=== PATIENT | female | born 1955 | race Caucasian/White ===

== ENCOUNTER → 2021-08-23 | Outpatient (CLI) | payer OTHER, SELFPAY ==
--- NOTE | 2021-08-23 10:20 | BI_ITS ---
MAMMOGRAPHY - BILATERAL SCREENING REASON FOR EXAM: Female, 65 years old. Routine annual screening examination. PERTINENT HISTORY: Non-contributory. TECHNIQUE: Digital bilateral breast laron (3D mammographic acquisition) in the CC and MLO projections. 2-D mediolateral oblique (MLO) and craniocaudad (CC) views of both breasts were obtained. CAD: Full Field Digital Mammography with Computer Added Detection was performed. COMPARISON: Comparison is made with prior study dated 12/09/2014 and 04/15/2013. FINDINGS: Breast Composition: There are scattered areas of fibroglandular density. There are no dominant masses or suspicious calcifications. Stable 4.5 mm well-defined nodule in the axillary region of the left breast suggestive of a small lymph node. No other significant abnormalities are identified. There has been no significant change since the prior study. BI/SCRN MAMM (CAD)W/LARON BILAT IMPRESSION: Stable bilateral screening mammogram. Yearly follow-up mammogram recommended. (A) ASSESSMENT CATEGORY: BIRADS Category 2: Benign. A letter regarding these results will be sent to the patient by the facility within 30 days. Approximately 10% of breast cancers are not detected by mammography. A normal mammogram should not delay biopsy of a clinically suspicious abnormality. [id number] Electronically Signed: Paulino Chamberlain MD at 11:58 EDT ,
--- NOTE | 2021-08-23 10:22 | BD_ITS ---
STUDY: DUAL ENERGY X-RAY ABSORPTIOMETRY / DXA REASON FOR EXAM: Female, 65 years old. M85.89 TECHNIQUE: Bone Mineral Density (BMD) measurements of lumbar spine and right hip were obtained. COMPARISON: Comparison is made with prior study of 05/05/2014. FINDINGS: Lumbar Spine (L1-L4): g/cm2 (0.773) / T-score (-2.5) / Z-score (-0.8) Findings are suggestive of osteopenia with a high fracture risk. Right Femur Total: g/cm2 (0.795) / T-score (-1.2) / Z-score (-0.1) Right Femoral Neck: g/cm2 (0.648) / T-score (-1.8) / Z-score (-0.4) The T-Scores on the most recent prior examination were: Lumbar Spine (L1-L4): There has been worsening of bone density since the previous examination. Right Femur Total: which represents a worsening of 4.3%. BD/Dexa Bone Density Study IMPRESSION: The patient is considered osteopenic as outlined below according to World Lance Organization (WHO) criteria with a high fracture risk. There has been worsening of bone density since the previous examination. Reference Information: The T-score is the number of standard deviations above or below the standard which is normal for young adults at their peak bone mineral density. The World Health Organization (WHO) interprets the T-scores as follows: Above -1 Normal bone density Between -1 and -2.5 Osteopenia Equal to / or below -2.5 Osteoporosis As a practical clinical guideline, osteopenia may be graded as follows: Mild -1 through -1.5 Moderate -1.6 through -2.0 Severe -2.1 through -2.4 The Z-score is the number of standard deviations above or below age-matched controls. A Z-score of less than -1.5 would be considered abnormal. References: 1. NIH Osteoporosis and Related Bone Diseases www osteo.org 2. International Society for Clinical Densitometry www iscd.org 3. National Osteoporosis Foundation www nof.org Electronically Signed: Paulino Chamberlain MD at 15:34 EDT ,
== END | disposition home or self-care (01) ==
LOC: OPBD 10:16
PROVIDERS: PCP Internal Medicine; Visit Provider Family Medicine
DX: Z12.31 Encounter for screening mammogram for malignant neoplasm of breast (principal); M85.89 Other specified disorders of bone density and structure, multiple sites
CPT/HCPCS: 77063; 77067; 77080

== ENCOUNTER → 2024-08-18 | Outpatient (CLI) | payer MEDICARE, SELFPAY ==
--- NOTE | 2024-08-18 06:58 | BD_ITS ---
PROCEDURE: DEXA BONE DENSITY STUDY 08/18/2024 REASON FOR EXAM: F, age 68 y/o . Postmenopausal. TECHNIQUE: DEXA BONE DENSITY STUDY COMPARISON: Prior study dated August 23, 2021. FINDINGS: BMD and T-SCORES Lumbar spine: 0.676 g/cm2, T-score -3.4 Levels: L1 through L4 Loss of 12.5% Left femoral neck: 0.617 g/cm2, T-score -2.1 Femoral neck comparison data not recommended for monitoring change. Left total hip: 0.687 g/cm2, T-score -2.1 Change from prior: Loss of 8.1%. Right femoral neck: 0.636 g/cm2, T-score -1.9 Femoral neck comparison data not recommended for monitoring change. Right total hip: 0.727 g/cm2, T-score -1.8 Change from prior: Loss of 8.5%. The World Health Organization has defined the following categories based on bone density: Normal bone density: T-score equal to or greater than -1.0 Osteopenia: T-score between -1.0 and -2.5 Osteoporosis: T-score equal to or less than -2.5 The patient does meet the pharmacological treatment recommendations for prevention of osteoporosis. BD/Dexa Bone Density Study IMPRESSION: OSTEOPOROSIS. Recommend follow-up as clinically warranted. Reading Location: [id number]
--- OUTSIDE RECORDS SUMMARY | 2024-08-18 07:08 | XMS RPT_ITS | CCD ---
Author Organization [facility] Inform ion Partnership [facility] Care Team Providers Care Archery Instructor Name Role Phone SEEMA ZHENG Unavailable Unavailable SEEMA ZHENG Unavailable Unavailable JOSIAH DONOVAN Unavailable Unavailable Unavailable Primary Care Provider Kelly grace Unavailable Primary Care Provider Kelly Donovan MD, Josiah Short Primary Care Provider JOSIAH DONOVAN Primary Care Unavaila ble MARTIJENNIFER Powell Referring Unavailable ZION, JOSIAH SHORT Primary Care Unavaila ble MARTIJENNIFER Referring Unavailable IZON, JOSIAH HAN Primary Care Unavaila ble ZION, JOSIAH HAN Primary Care Unavaila ble ZION, [facility] Primary Care Unavaila ble MARTIJENNIFER Referring Unavailable ZION, [facility] HAN Primary Care Unavaila ble ZION, [facility] HAN Primary Care Unavaila ble TEGAN DELVALLE Admitting Unavailable ADELIARILEY H Attending Unavailable RENALDO PENNINGTON Consulting Unavailable JENNIFER KIDD Referring Unavailable ZION, JOSIAH HAN Primary Care Unavaila ble ALISAYENNIFER Referring Unavailable ZION, [facility] HAN Primary Care Unavaila ble ZION, [facility] Primary Care Unavaila ble KILBANE, E1 Referring Unavailable KILBANE, E1 Attending Unavailable KILBANE, E1 Primary Care Unavailable Medications Current Medications Medication Drug Class(es) Dates Sig (Normalized) Sig (Original) apixaban 5 mg oral tablet (2 sources) Factor Xa Inhibitor Start: 10-26-2023 End: 11-25-2023 take 1 tablet by mouth twice daily apixaban (ELIQUIS) 5 mg tab(s) Take 1 tablet by mouth two times a day. 60 tablet 10/26/2023 11/25/2023 Active Calcium (4 sources) Phosphate Binder, Calcium CALCIUM ORAL Take by mouth twice daily. Active cholecalciferol, vitamin D3, (VITAMIN D3 ORAL) (4 sources) cholecalciferol, vitamin D3, (VITAMIN D3 ORAL) Take by mouth twice daily. Active 24 hr dilTIAZem hydrochloride 120 mg extended release oral capsule (4 sources) Calcium Channel Ritu Start: 10-27-2023 End: 11-26-2023 take 1 capsule by mouth once daily dilTIAZem CD (CARDIZEM CD, CARTIA XT) 120 mg 24 hr capsule Take 1 capsule by mouth once daily. 30 capsule 10/27/2023 Active empagliflozin 10 mg oral tablet (4 sources) Sodium-Glucose Cotransporter 2 Inhibitor Start: 10-27-2023 End: 11-26-2023 take 1 tablet by mouth once daily empagliflozin (JARDIANCE) 10 mg tablet Take 1 tablet by mouth once daily. 30 tablet 10/27/2023 Active furosemide 20 mg oral tablet (4 sources) Loop Diuretic Start: 10-26-2023 End: 11-25-2023 take 0.5 tablet by mouth once daily furosemide (LASIX) 20 mg tablet Take 0.5 tablets by mouth once daily. 15 tablet 10/26/2023 Active magnesium oxide 400 mg oral capsule (4 sources) take 1 capsule by mouth once daily magnesium oxide 400 mg magnesium cap Take 400 mg by mouth once daily. Active 24 hr metoprolol succinate 100 mg extended release oral tablet (4 sources) beta-Adrenergic Ritu Start: 10-27-2023 End: 11-26-2023 take 1 tablet by mouth once daily metoprolol succinate ER (TOPROL XL) 100 mg Take 1 tablet by mouth once daily. 30 tablet 10/27/2023 Active vitamin b12 1 mg/ml injectable solution (4 sources) Vitamin B12 Start: 03-21-2020 cyanocobalamin 1,000 mcg/mL once every month. 03/21/2020 Active Completed/Discontinued Medications Medication Drug Class(es) Dates Sig (Normalized) Sig (Original) benzocaine 140 mg/ml / butamben 20 mg/ml / tetracaine 20 mg/ml mucosal spray (1 source) [place] Local Anesthetic, Standardized Chemical Allergen Start: 11-14-2023 End: 11-14-2023 1 [place], MUCOUS MEMBRANE (TOPICAL MOUTH & THROAT), ONCE, 1 dose, On Fri11/14/23 at 1230, FOR EXTERNAL USE ONLY APPLY TO: back of throat [place] should be applied for one second or less - Dose delivered is 200 mg per one second spray - Pharmaceutical Waste: Aerosol - naproxen 500 mg oral tablet (1 source) Nonsteroidal Anti-inflammatory Drug Start: 01-29-2010 take 1 tablet by mouth once daily at mealtime for pain naproxen (NAPROSYN) 500 mg ORAL tablet Indications: Leg pain, left , Knee pain, left Take one(1) tab two(2) times daily with food for pain. 20 Tab 0 01/29/2010 Active Comment on above: Take one(1) tab two( 2) times daily with food for pain. Problems Active Problems Problem Classification Problem Date Documented Da te Episodic/Chronic Cardiac dysrhythmias (13 sources) Atrial fibrillation; Translations: [Unspecified atrial fibrillation] Onset: 10-23-2023 11-14-2023 Chronic Congestive heart failure; nonhypertensive (4 sources) Heart failure with normal ejection fraction; Translations: [Unspecified diastolic (congestive) heart failure] Onset: 10-23-2023 03-02-2024 Chronic Diabetes mellitus without complication (7 sources) Hyperglycemia; Translations: [Hyperglycemia, unspecified] Onset: 10-23-2023 10-23-2023 Episodic Osteoporosis (1 source) Age-related osteoporosis without current pathological fracture; Translations: [Age-related osteoporosis without current pathological fracture] Onset: 08-12-2024 Chronic Pathological fracture (1 source) Age-related osteoporosis with current pathological fracture, vertebra(e), sequela; Translations: [Crush fracture of vertebra due to osteoporosis, sequela] Onset: 08-03-2024 Episodic Spondylosis; intervertebral disc disorders; other back problems (1 source) Sciatica, unspecified side; Translations: [Sciatica, unspecified side] Onset: 07-22-2024 Episodic Unclassified (1 source) Vertebrogenic low back pain; Translations: [Vertebrogenic low back pain] Onset: 07-22-2024 Past or Other Problems Problem Classification Problem Date Documented Da te Episodic/Chronic Administrative/social admission (4 sources) Person with feared health complaint in whom no diagnosis is made; Translations: [Person with feared complaint in whom no diagnosis was made] Onset: 03-01-2020 03-01-2020 Episodic Cardiac dysrhythmias (1 source) Tachycardia, unspecified; Translations: [Tachycardia] Onset: 10-23-2023 Episodic Malaise and fatigue (4 sources) Asthenia; Translations: [Weakness] Onset: 03-01-2020 03-01-2020 Episodic Other connective tissue disease (4 sources) Nocturnal muscle cramp; Translations: [Cramp and spasm] Onset: 03-01-2020 05-07-2020 Episodic Other connective tissue disease (4 sources) Muscle pain; Translations: [Myalgia, unspecified site] Onset: 03-01-2020 03-01-2020 Episodic Other connective tissue disease (4 sources) Pain in bilateral legs; Translations: [Pain in right leg] Onset: 05-07-2020 05-07-2020 Episodic Other connective tissue disease (4 sources) Spasm; Translations: [Cramp and spasm] Onset: 05-07-2020 05-07-2020 Episodic Other lower respiratory disease (4 sources) Dyspnea; Translations: [Shortness of breath] Onset: 10-23-2023 Resolved: 10-26-2023 10-26-2023 Episodic Other nervous system disorders (4 sources) Muscle twitch; Translations: [Fasciculation] Onset: 03-01-2020 03-01-2020 Episodic Other nervous system disorders (4 sources) Skin sensation disturbance; Translations: [Unspecified disturbances of skin sensation] Onset: 05-07-2020 05-07-2020 Episodic Other screening for suspected conditions (not mental disorders or infectious disease) (8 sources) D-dimer above reference range; Translations: [Other specified abnormal findings of blood chemistry] Onset: 10-23-2023 Resolved: 10-26-2023 10-26-2023 Episodic Results Test Name Value Interpretation Reference Range Facility PT panel Coag (PPP)on 2024 INR Coag (PPP) [Relative time] 1.3 {INR} Normal 0.9-1.3 [facility] Comment on above: Order Comment: Speci men Type: BLOOD SPECIMENOrdering Facility: [employer]. [facility] Address: [address] [place] [address] Result Comment: Danii min K Antagonist (VKA) Therapeutic Range: INR 2 to 3 (Target INR of 2.5) Note: For patients treated with VKA drugs, such as warfarin, the [employer] 2012 Guideline recommends a therapeutic INR range of 2 to 3 (target INR of 2.5). This recommendation includes high-risk patients with antiphospholipid syndrome with previous arterial or venous thromboembolism, current-generation mechanical or bioprosthetic aortic heart valve replacement. Note: Patients with mechanical aortic valve replacement and additional risk factors for thromboembolic events (atrial fibrillation, previous thromboembolism, LV dysfunction, hypercoagulable conditions) or an older generation mechanical AVR (i.e., ball in-Cage) or any mechanical MVR should have a INR therapeutic range of 2.5 to 3.5 (target INR of 3). Toni LAUGHLIN, et al. Chest 2012, 141:7S-47S Sebastián RA, et al. [facility] 2017, 70: 252-289 Performed By: #### 3 4528-0, 54367-8 ####[facility] [id number] [place] [address] [place] PT Coag (PPP) [Time] 13.9 s High 9.4-12.5 [facility] Comment on above: Order Comment: Speci men Type: BLOOD SPECIMENOrdering Facility: [employer]. [facility] Address: [address] [place] [address] Performed By: #### 3 4528-0, 85041-5 ####[facility] [id number] [place] [address] [place] STAPHYLOCOCCUS AUREUS AND MR SA SCREEN, PCR, NASALon 08-03-2024 S. aureus and MRSA panel KOURTNEY+probe (Nose) Not detected Normal Not Detected [facility] Comment on above: Order Comment: Speci men Type: SWABOrdering Facility: [employer]. [facility] Address: [address] [place] [address] Performed By: #### S APCR ####[facility] [id number] [place] [address] [place] aPTT PPPon 08-03-2024 aPTT Coag (PPP) [Time] 38.0 s High 25.1-36.5 [facility] Comment on above: Order Comment: Speci men Type: BLOOD SPECIMENOrdering Facility: [facility] [facility]. [facility] Address: [address] [place] [address] Result Comment: [facility] Heparin Therapeutic Range: 54-90 seconds Performed By: #### 3 4528-0, 96429-4 ####[facility] LABCLIA [id number] [address] [place] XR LUMBAR 2V AP/LATon 2024 XR LUMBAR 2V AP/LAT * * *Final Report* * * DATE OF EXAM: Jul 22 2024 1:22PM UDX [id number] - XR LUMBAR 2V AP/LAT / PROCEDURE REASON: MULTIPLE DIAGNOSIS * * * * Physician Interpretation * * * * EXAMINATION: XR LUMBAR 2V AP/LAT, XR THORACIC 2V AP/LAT CLINICAL HISTORY: Pain. Technique: XR LUMBAR 2V AP/LAT, XR THORACIC 2V AP/LAT Comparison: CT chest 10/23/2023. RESULT: Age-indeterminate compression fracture deformity of the T10 vertebra which is new compared to prior exam. This results in approximately 25% height loss at this level. There is mild grade 1 anterolisthesis of L4 upon L5. Vertebral body height and alignment is otherwise within normal limits. There is mulitilevel disk space narrowing and facet joint hypertrophy most prominent at T7-T8 within the thoracic spine, mild to moderate in degree; L5-S1 within the lumbar spine, mild in degree. There are no acute osseous changes. IMPRESSION: Age-indeterminate compression fracture of the T10 vertebra which is new compared to prior imaging. This results in 25% height loss at this level without osseous retropulsion. Clinical correlation is advised to further determine the acuity of this injury. Multilevel degenerative changes as above. Circular Gang Saw Operator: PSCB Transcribe Date/Time: Jul 26 2024 12:09P Dictated by : BEN VARGAS MD This examination was interpreted and the report reviewed and electronically signed by: BEN VARGAS MD on Jul 26 2024 12:19PM EST [id number] N Normal [facility] XR THORACIC 2V AP/LATon 06-25 XR THORACIC 2V AP/LAT * * *Final Report* * * DATE OF EXAM: Jul 22 2024 1:22PM UDX 5262 - XR THORACIC 2V AP/LAT / PROCEDURE REASON: MULTIPLE DIAGNOSIS * * * * Physician Interpretation * * * * EXAMINATION: XR LUMBAR 2V AP/LAT, XR THORACIC 2V AP/LAT CLINICAL HISTORY: Pain. Technique: XR LUMBAR 2V AP/LAT, XR THORACIC 2V AP/LAT Comparison: CT chest 10/23/2023. RESULT: Age-indeterminate compression fracture deformity of the T10 vertebra which is new compared to prior exam. This results in approximately 25% height loss at this level. There is mild grade 1 anterolisthesis of L4 upon L5. Vertebral body height and alignment is otherwise within normal limits. There is mulitilevel disk space narrowing and facet joint hypertrophy most prominent at T7-T8 within the thoracic spine, mild to moderate in degree; L5-S1 within the lumbar spine, mild in degree. There are no acute osseous changes. IMPRESSION: Age-indeterminate compression fracture of the T10 vertebra which is new compared to prior imaging. This results in 25% height loss at this level without osseous retropulsion. Clinical correlation is advised to further determine the acuity of this injury. Multilevel degenerative changes as above. Circular Gang Saw Operator: PSCB Transcribe Date/Time: Jul 26 2024 12:09P Dictated by : BEN VARGAS MD This examination was interpreted and the report reviewed and electronically signed by: BEN VARGAS MD on Jul 26 2024 12:19PM EST [id number] N Normal [facility] Basic metabolic 2000 panelon 07-09-2024 Anion gap [Moles/Vol] 10 mmol/L Normal 8-15 [facility] Comment on above: Order Comment: Speci men Type: BLOOD SPECIMENOrdering Facility: External Submitter Address: , , Performed By: #### 2 4321-2 ####[facility] LABCLIA [id number] [place] [address] [place] Calcium [Mass/Vol] 9.6 mg/dL Normal 8.5-10.2 [facility] Comment on above: Order Comment: Speci men Type: BLOOD SPECIMENOrdering Facility: External Submitter Address: , , Performed By: #### 2 4321-2 ####[facility] LABCLIA [id number] [place] [address] [place] Chloride [Moles/Vol] 101 mmol/L Normal 98-107 [facility] Comment on above: Order Comment: Speci men Type: BLOOD SPECIMENOrdering Facility: External Submitter Address: , , Performed By: #### 2 4321-2 ####[facility] LABIA [id number] [place] [address] [place] CO2 [Moles/Vol] 27 mmol/L Normal 22-30 [facility] Comment on above: Order Comment: Speci men Type: BLOOD SPECIMENOrdering Facility: External Submitter Address: , , Performed By: #### 2 4321-2 ####[facility] [id number] [place] [address] [place] Creatinine [Mass/Vol] 0.72 mg/dL Normal 0.58-0.96 [facility] Comment on above: Order Comment: Speci men Type: BLOOD SPECIMENOrdering Facility: External Submitter Address: , , Performed By: #### 2 4321-2 ####[facility] [id number] [place] [address] [place] [facility] Creatinine and Glomerular filtration rate.predicted panel (S/P/Bld) 92 mL/min/1.73m??? Normal >=60 [facility] Comment on above: Order Comment: Speci men Type: BLOOD SPECIMENOrdering Facility: External Submitter Address: , , Result Comment: Shira mated Glomerular Filtration Rate (eGFR) is calculated using the 2020 CKD-EPI creatinine equation. This equation utilizes serum creatinine, sex, and age as parameters. The creatinine assay has traceable calibration to isotope dilution-mass spectrometry. Refer to KDIGO guidelines for clinical interpretation. In patients with unstable renal function, e.g. those with acute kidney injury, the eGFR may not accurately reflect actual GFR. Performed By: #### 2 4321-2 ####[facility] LABIA [id number] [place] [address] [place] Glucose [Mass/Vol] 84 mg/dL Normal 74-99 [facility] Comment on above: Order Comment: Allan phelps Type: BLOOD SPECIMENOrdering Facility: External Submitter Address: , , Result Comment: The [place] [employer] (ADA) provides guidance for cutoff values for fasting glucose and random glucose. The ADA defines fasting as no caloric intake for at least 8 hours. Fasting plasma glucose results between 100 to 125 mg/dL indicate increased risk for diabetes (prediabetes). Fasting plasma glucose results greater than or equal to 126 mg/dL meet the criteria for diagnosis of diabetes. In the absence of unequivocal hyperglycemia, results should be confirmed by repeat testing. In a patient with classic symptoms of hyperglycemia or hyperglycemic crisis, random plasma glucose results greater than or equal to 200 mg/dL meet the criteria for diagnosis of diabetes. Reference: Standards of Medical Care in Diabetes 2016, [place] [employer]. Diabetes Care. 2016.39(Suppl 1). Performed By: #### 2 4321-2 ####[facility] [id number] [address] STATES OF [facility] Potassium [Moles/Vol] 4.4 mmol/L Normal 3.7-5.1 [facility] Comment on above: Order Comment: Allan phelps Type: BLOOD SPECIMENOrdering Facility: External Submitter Address: , , Performed By: #### 2 432-2 ####[facility] [id number] [address] Sodium [Moles/Vol] 138 mmol/L Normal 136-144 [facility] Comment on above: Order Comment: Allan [facility] Type: BLOOD SPECIMENOrdering Facility: External Submitter Address: , , Performed By: #### 2 4321-2 ####[facility] [id number] [address] STATES [facility] Urea nitrogen [Mass/Vol] 19 mg/dL Normal 7-21 [facility] Comment on above: Order Comment: Allan phelps Type: BLOOD SPECIMENOrdering Facility: External Submitter Address: , , Performed By: #### 2 4321-2 ####[facility] [id number] [address] OF [facility] CBC panel Auto (Bld)on 07-09 Erythrocyte distribution width (RBC) [Ratio] 12.7 % Normal 11.5-15.0 [facility] Comment on above: Order Comment: Speci men Type: BLOOD SPECIMENOrdering Facility: External Submitter Address: , , Performed By: #### 5 8410-2 ####[facility] [id number] [address] Hematocrit (Bld) [Volume fraction] 39.9 % Normal 36.0-46.0 [facility] Comment on above: Order Comment: Speci men Type: BLOOD SPECIMENOrdering Facility: External Submitter Address: , , Performed By: #### 5 8410-2 ####[facility] [id number] [address] Hemoglobin (Bld) [Mass/Vol] 13.0 g/dL Normal 11.5-15.5 [facility] Comment on above: Order Comment: Speci men Type: BLOOD SPECIMENOrdering Facility: External Submitter Address: , , Performed By: #### 5 8410-2 ####[facility] [id number] [address] MCH (RBC) [Entitic mass] 32.7 pg Normal 26.0-34.0 [facility] Comment on above: Order Comment: Speci men Type: BLOOD SPECIMENOrdering Facility: External Submitter Address: , , Performed By: #### 5 8410-2 ####[facility] [id number] [address] MCHC (RBC) [Mass/Vol] 32.6 g/dL Normal 30.5-36.0 [facility] Comment on above: Order Comment: Speci men Type: BLOOD SPECIMENOrdering Facility: External Submitter Address: , , Performed By: #### 5 8410-2 ####[facility] [id number] [address] MCV (RBC) [Entitic vol] 100.5 fL High 80.0-100.0 [facility] Comment on above: Order Comment: Speci men Type: BLOOD SPECIMENOrdering Facility: External Submitter Address: , , Performed By: #### 5 8410-2 ####[facility] [id number] [address] Nucleated RBC (Bld) [#/Vol] 10*3/uL Normal <0.01 [facility] Comment on above: Order Comment: Speci men Type: BLOOD SPECIMENOrdering Facility: External Submitter Address: , , Performed By: #### 5 8410-2 ####[facility] [id number] [address] Platelet mean volume (Bld) [Entitic vol] 9.3 fL Normal 9.0-12.7 [facility] Comment on above: Order Comment: Speci men Type: BLOOD SPECIMENOrdering Facility: External Submitter Address: , , Performed By: #### 5 8410-2 ####[facility] [id number] [address] Platelets (Bld) [#/Vol] 300 10*3/uL Normal 150-400 [facility] Comment on above: Order Comment: Speci men Type: BLOOD SPECIMENOrdering Facility: External Submitter Address: , , Performed By: #### 5 8410-2 ####[facility] [id number] [address] RBC (Bld) [#/Vol] 3.97 10*6/uL Normal 3.90-5.20 [facility] Comment on above: Order Comment: Speci men Type: BLOOD SPECIMENOrdering Facility: External Submitter Address: , , Performed By: #### 5 8410-2 ####[facility] [id number] [address] WBC (Bld) [#/Vol] 5.20 10*3/uL Normal 3.70-11.00 [facility] Comment on above: Order Comment: Speci men Type: BLOOD SPECIMENOrdering Facility: External Submitter Address: , , Performed By: #### 5 8410-2 ####[facility] [id number] [place] [address] [place] Basic metabolic 2000 panelon 03-19-2024 Anion gap [Moles/Vol] 9 mmol/L Normal 8-15 [facility] Comment on above: Order Comment: Speci men Type: BLOOD SPECIMENOrdering Facility: External Submitter Address: , , Performed By: #### 3 3762-6, ####[facility] [id number] [place] [address] [place] Calcium [Mass/Vol] 10.0 mg/dL Normal 8.5-10.2 [facility] Comment on above: Order Comment: Speci men Type: BLOOD SPECIMENOrdering Facility: External Submitter Address: , , Performed By: #### 3 3762-6, ####[facility] [id number] [address] [place] Chloride [Moles/Vol] 105 mmol/L Normal 98-107 [facility] Comment on above: Order Comment: Speci men Type: BLOOD SPECIMENOrdering Facility: External Submitter Address: , , Performed By: #### 3 3762-6, ####[facility] [id number] [place] [address] [place] CO2 [Moles/Vol] 29 mmol/L Normal 22-30 [facility] Comment on above: Order Comment: Speci men Type: BLOOD SPECIMENOrdering Facility: External Submitter Address: , , Performed By: #### 3 3762-6, ####[facility] [id number] [place] [address] [place] Creatinine [Mass/Vol] 0.67 mg/dL Normal 0.58-0.96 [facility] Comment on above: Order Comment: Speci men Type: BLOOD SPECIMENOrdering Facility: External Submitter Address: , , Performed By: #### 3 3762-6, 46271-1 ####[facility] [id number] [place] [address] [place] Creatinine and Glomerular filtration rate.predicted panel (S/P/Bld) 97 mL/min/1.73m??? Normal >=60 [facility] Comment on above: Order Comment: Allan phelps Type: BLOOD SPECIMENOrdering Facility: External Submitter Address: , , Result Comment: Shira mated Glomerular Filtration Rate (eGFR) is calculated using the 2020 CKD-EPI creatinine equation. This equation utilizes serum creatinine, sex, and age as parameters. The creatinine assay has traceable calibration to isotope dilution-mass spectrometry. Refer to KDIGO guidelines for clinical interpretation. In patients with unstable renal function, e.g. those with acute kidney injury, the eGFR may not accurately reflect actual GFR. Performed By: #### 3 3762-6, 29393-1 ####[facility] LABIA [id number] [place] [address] [place] Glucose [Mass/Vol] 88 mg/dL Normal 74-99 [facility] Comment on above: Order Comment: Allan phelps Type: BLOOD SPECIMENOrdering Facility: External Submitter Address: , , Result Comment: The [place] [employer] (ADA) provides guidance for cutoff values for fasting glucose and random glucose. The ADA defines fasting as no caloric intake for at least 8 hours. Fasting plasma glucose results between 100 to 125 mg/dL indicate increased risk for diabetes (prediabetes). Fasting plasma glucose results greater than or equal to 126 mg/dL meet the criteria for diagnosis of diabetes. In the absence of unequivocal hyperglycemia, results should be confirmed by repeat testing. In a patient with classic symptoms of hyperglycemia or hyperglycemic crisis, random plasma glucose results greater than or equal to 200 mg/dL meet the criteria for diagnosis of diabetes. Reference: Standards of Medical Care in Diabetes 2016, [place] [employer]. Diabetes Care. 2016.39(Suppl 1). Performed By: #### 3 3762-6, 49676-8 ####[facility] LABIA [id number] [place] [address] [place] Potassium [Moles/Vol] 4.3 mmol/L Normal 3.7-5.1 [facility] Comment on above: Order Comment: Allan phelps Type: BLOOD SPECIMENOrdering Facility: External Submitter Address: , , Performed By: #### 3 3762-6, ####[facility] LABIA [id number] [address] Sodium [Moles/Vol] 143 mmol/L Normal 136-144 [facility] Comment on above: Order Comment: Speci men Type: BLOOD SPECIMENOrdering Facility: External Submitter Address: , , Performed By: #### 3 3762-6, ####[facility] [id number] [address] Urea nitrogen [Mass/Vol] 20 mg/dL Normal 7-21 [facility] Comment on above: Order Comment: Speci men Type: BLOOD SPECIMENOrdering Facility: External Submitter Address: , , Performed By: #### 3 3762-6, ####[facility] [id number] [address] CBC panel Auto (Bld)on 03-19 Erythrocyte distribution width (RBC) [Ratio] 13.1 % Normal 11.5-15.0 [facility] Comment on above: Order Comment: Speci men Type: BLOOD SPECIMENOrdering Facility: External Submitter Address: , , Performed By: #### 5 8410-2 ####[facility] [id number] [address] Hematocrit (Bld) [Volume fraction] 47.0 % High 36.0-46.0 [facility] Comment on above: Order Comment: Speci men Type: BLOOD SPECIMENOrdering Facility: External Submitter Address: , , Performed By: #### 5 8410-2 ####[facility] LABIA [id number] [address] Hemoglobin (Bld) [Mass/Vol] 14.9 g/dL Normal 11.5-15.5 [facility] Comment on above: Order Comment: Speci men Type: BLOOD SPECIMENOrdering Facility: External Submitter Address: , , Performed By: #### 5 8410-2 ####[facility] [id number] [place] [address] [facility] MCH (RBC) [Entitic mass] 32.0 pg Normal 26.0-34.0 [facility] Comment on above: Order Comment: Speci men Type: BLOOD SPECIMENOrdering Facility: External Submitter Address: , , Performed By: #### 5 8410-2 ####[facility] [id number] [address] MCHC (RBC) [Mass/Vol] 31.7 g/dL Normal 30.5-36.0 [facility] Comment on above: Order Comment: Speci men Type: BLOOD SPECIMENOrdering Facility: External Submitter Address: , , Performed By: #### 5 8410-2 ####[facility] [id number] [address] MCV (RBC) [Entitic vol] 100.9 fL High 80.0-100.0 [facility] Comment on above: Order Comment: Speci men Type: BLOOD SPECIMENOrdering Facility: External Submitter Address: , , Performed By: #### 5 8410-2 ####[facility] [id number] [address] Nucleated RBC (Bld) [#/Vol] 10*3/uL Normal <0.01 [facility] Comment on above: Order Comment: Speci men Type: BLOOD SPECIMENOrdering Facility: External Submitter Address: , , Performed By: #### 5 8410-2 ####[facility] [id number] [address] Platelet mean volume (Bld) [Entitic vol] 9.3 fL Normal 9.0-12.7 [facility] Comment on above: Order Comment: Speci men Type: BLOOD SPECIMENOrdering Facility: External Submitter Address: , , Performed By: #### 5 8410-2 ####[facility] [id number] [address] Platelets (Bld) [#/Vol] 315 10*3/uL Normal 150-400 [facility] Comment on above: Order Comment: Speci mattie Type: BLOOD SPECIMENOrdering Facility: External Submitter Address: , , Performed By: #### 5 8410-2 ####[facility] LABIA [id number] [place], [place] [address] [place] [address] RBC (Bld) [#/Vol] 4.66 10*6/uL Normal 3.90-5.20 [facility] Comment on above: Order Comment: Speci men Type: BLOOD SPECIMENOrdering Facility: External Submitter Address: , , Performed By: #### 5 8410-2 ####[facility] [id number] [place] [address] [facility] WBC (Bld) [#/Vol] 4.83 10*3/uL Normal 3.70-11.00 [facility] Comment on above: Order Comment: Speci mattie Type: BLOOD SPECIMENOrdering Facility: External Submitter Address: , , Performed By: #### 5 8410-2 ####[facility] LABIA [id number] [place] [address] [facility] ECHOon 03-19-2024 Echocardiography Echocardiography Report: Transthoracic Echo [facility] Date of service: 03/19/2024 6:43:51 AM Ordering physician: JENNIFER KIDD Indication: Nonsustained atrial fibrillation Technologist: Lionel Lai [facility] Interpreting physician: Jennifer Kidd MD PATIENT: Name: MONIE SERRANO : 1955 Age: 68 years Gender: F History of arrhythmia. Primary rhythm: sinus. Height: 167.60 cm BSA: 2.04 m Weight: 89.70 kg BMI: 31.9 kg/m Heart rate 57 bpm Blood pressure 115/65 mmHg Color Doppler was utilized to interrogate the cardiac valves assessed and spectral Doppler was utilized to determine the flow velocities and pressure gradients reported in this exam. MEASUREMENTS: Value Indexed Normal Max aortic dimension 2.8 cm Ao < 3.8 Left atrial volume 53 ml (biplane A-L) 26 ml/m Mary <= 34 LV ID (diastole) 4.1 cm (2D) 2.00 cm/m LV ID (systole) 3.1 cm (2D) 1.50 cm/m IVS, leaflet tips 0.9 cm (2D) Posterior wall thickness 0.9 cm (2D) Left ventricular mass 109 g (2D) 53 g/m LV stroke volume 50 ml (2D biplane) LVOT stroke volume 53 ml 27 ml/m LV end diastolic volume 97 ml (2D biplane) 47.2 ml/m 29<=EDVi<62 LV end systolic volume 47 ml (2D biplane) 22.9 ml/m Ejection Fraction 52 % (2D biplane) EF > 54 FINDINGS: LEFT VENTRICLE The left ventricle is normal in size. Left ventricular systolic function is mildly decreased. Normal left ventricular diastolic function. Mitral annular lateral E/e': 11.7. Mitral annular septal E/e': 9.8. Wall Motion: All scored segments are normal. RIGHT VENTRICLE The right ventricle is normal in size. Right ventricular systolic function is normal. RV systolic tissue Doppler velocity is 9.2 cm/s. Tricuspid annular displacement is 1.8 cm. Estimated right ventricular systolic pressure is likely underestimated due to a weak or incomplete tricuspid regurgitation signal and is, at least, 23 mmHg consistent with normal pulmonary artery pressures. Estimated right atrial pressure is 3 mmHg (although IVC not seen). LEFT ATRIUM The left atrial cavity is normal in size. RIGHT ATRIUM The right atrial cavity is normal in size. Inferior Vena Cava: The inferior vena cava measuring 1.0 cm. The vessel decreases greater than 50 percent with inspiration. MITRAL VALVE There is mild (1+) mitral valve regurgitation. There is mild thickening. The peak mitral valve gradient is 3 mmHg. The mean mitral valve gradient is 1 mmHg. The pressure half time is 81 msec. The peak mitral E/A ratio is 1.05. The average mitral E/e' ratio is 10.8. The mitral flow deceleration time is 280 msec. TRICUSPID VALVE There is mild (1+) tricuspid valve regurgitation. There is mild thickening. AORTIC VALVE There is trace aortic valve regurgitation. Tricuspid aortic valve. There is mild thickening. The peak gradient is 9 mmHg (peak velocity = 148.2 cm/s). The mean gradient is 5 mmHg. The LVOT mean velocity is 63.7 cm/s. The LVOT diameter is 1.7 cm. The aortic VTI is 35.0 cm. The mean velocity in the aortic valve is 102.6 cm/s. The dimensionless valve index is 0.65. AV area is 1.52 cm (0.74 cm /m ) by continuity, VTI. The LVOT stroke volume index is 27 ml/m . PULMONIC VALVE There is trace pulmonic valve regurgitation. There is mild thickening. The peak gradient is 3 mmHg. The mean gradient is 2 mmHg. The mean velocity in the pulmonic valve is 58.3 cm/s. AORTA The visualized aorta is normal in size. Measurements - Aortic valve annulus 1.7 cm. Sinus: 2.7 cm. Sinotubular junction 2.4 cm. Mid ascending aorta 2.8 cm. PULMONARY ARTERIES The pulmonary arteries are normal. INTERATRIAL SEPTUM There is no evidence of intracardiac shunting as detected by Doppler. INTERVENTRICULAR SEPTUM There is no flow through the interventricular septum as detected by Doppler. PERICARDIUM There is no pericardial effusion. CONCLUSIONS: - Exam indication: Nonsustained atrial fibrillation - The left ventricle is normal in size. Left ventricular systolic function is mildly decreased. EF = 52 5% (2D biplane) - The right ventricle is normal in size. Right ventricular systolic function is normal. - Mild MR. - Mild TR. - Mild aortic valve thickening. - Exam was compared with the prior echocardiographic exam performed on 10/24/2023. Report in epic. * * * Final * * * [employer] Image : [id number] amicsSISUID Normal [facility] NT-proBNP SerPl-mCncon 03-19 Natriuretic peptide.B prohormone N-Terminal [Mass/Vol] 288 pg/mL High <125 [facility] Comment on above: Order Comment: Speci men Type: BLOOD SPECIMENOrdering Facility: External Submitter Address: , , Performed By: #### 3 3762-6, 59293-1 ####[facility] LABCLIA [id number] [place] [address] [place] Basic metabolic 2000 panelon 02-19-2024 Anion gap [Moles/Vol] 14 mmol/L Normal 8-15 [facility] Comment on above: Order Comment: Speci men Type: BLOOD SPECIMENOrdering Facility: [facility] Address: [address] [place] [address] [address] [address] Performed By: #### 3 3762-6, 11683-2 ####[facility] LABCLIA [id number] [place] [address] [place] Calcium [Mass/Vol] 10.3 mg/dL High 8.5-10.2 [facility] Comment on above: Order Comment: Speci men Type: BLOOD SPECIMENOrdering Facility: [facility] Address: [address] [place] [address] [address] [address] Performed By: #### 3 3762-6, 59665-2 ####[facility] [id number] [place] [address] [place] Chloride [Moles/Vol] 103 mmol/L Normal 98-107 [facility] Comment on above: Order Comment: Speci men Type: BLOOD SPECIMENOrdering Facility: [facility] Address: [address] [place] [address] [address] [address] Performed By: #### 3 3762-6, 70654-9 ####[facility] [id number] [place] [address] [place] CO2 [Moles/Vol] 27 mmol/L Normal 22-30 [facility] Comment on above: Order Comment: Speci men Type: BLOOD SPECIMENOrdering Facility: [facility] Address: [address] [place] [address] [address], [place] [address] Performed By: #### 3 3762-6, 94196-0 ####[facility] [id number] [place] [address] [place] Creatinine [Mass/Vol] 0.78 mg/dL Normal 0.58-0.96 [facility] Comment on above: Order Comment: Speci men Type: BLOOD SPECIMENOrdering Facility: [facility] Address: [address] [place] [address] [address], [place] [address] Performed By: #### 3 3762-6, 71034-8 ####[facility] LABCLIA [id number] [place] [address] [place] Creatinine and Glomerular filtration rate.predicted panel (S/P/Bld) 84 mL/min/1.73m??? Normal >=60 [facility] Comment on above: Order Comment: Allan phelps Type: BLOOD SPECIMENOrdering Facility: [facility] Address: [address] [place] [address] [id number], [place] [address] Result Comment: Shira mated Glomerular Filtration Rate (eGFR) is calculated using the 2020 CKD-EPI creatinine equation. This equation utilizes serum creatinine, sex, and age as parameters. The creatinine assay has traceable calibration to isotope dilution-mass spectrometry. Refer to KDIGO guidelines for clinical interpretation. In patients with unstable renal function, e.g. those with acute kidney injury, the eGFR may not accurately reflect actual GFR. Performed By: #### 3 3762-6, 65031-7 ####[facility] LABCLIA [id number] [place] [address] [place] Glucose [Mass/Vol] 86 mg/dL Normal 74-99 [facility] Comment on above: Order Comment: Allan phelps Type: BLOOD SPECIMENOrdering Facility: [facility] Address: [address] [place] [address] [address], [place] [address] Result Comment: The [place] Diabetes Association (ADA) provides guidance for cutoff values for fasting glucose and random glucose. The ADA defines fasting as no caloric intake for at least 8 hours. Fasting plasma glucose results between 100 to 125 mg/dL indicate increased risk for diabetes (prediabetes). Fasting plasma glucose results greater than or equal to 126 mg/dL meet the criteria for diagnosis of diabetes. In the absence of unequivocal hyperglycemia, results should be confirmed by repeat testing. In a patient with classic symptoms of hyperglycemia or hyperglycemic crisis, random plasma glucose results greater than or equal to 200 mg/dL meet the criteria for diagnosis of diabetes. Reference: Standards of Medical Care in Diabetes 2016, [place] [employer]. Diabetes Care. 2016.39(Suppl 1). Performed By: #### 3 3762-6, 83047-9 ####[facility] LABCLIA [id number] [place] [address] [place] Potassium [Moles/Vol] 4.4 mmol/L Normal 3.7-5.1 [facility] Comment on above: Order Comment: Speci men Type: BLOOD SPECIMENOrdering Facility: [facility] Address: [address] [place] [address] [address] [place] [address] Performed By: #### 3 3762-6, 97651-7 ####[facility] LABIA [id number] [place] [address] [place] [facility] Sodium [Moles/Vol] 144 mmol/L Normal 136-144 [facility] Comment on above: Order Comment: Speci men Type: BLOOD SPECIMENOrdering Facility: [facility] Address: [address] [place] [address] [address] [place] [address] Performed By: #### 3 3762-6, 75465-5 ####[facility] [id number] [place] [address] [place] [facility] Urea nitrogen [Mass/Vol] 20 mg/dL Normal 7-21 [facility] Comment on above: Order Comment: Speci men Type: BLOOD SPECIMENOrdering Facility: [facility] Address: [address] [place] [address] [address] [address] Performed By: #### 3 3762-6, 47938-0 ####[facility] [id number] [place] [address] [facility] CBC panel Auto (Bld)on 02-18 Erythrocyte distribution width (RBC) [Ratio] 14.3 % Normal 11.5-15.0 [facility] Comment on above: Order Comment: Speci men Type: BLOOD SPECIMENOrdering Facility: [facility] Address: [address] [place] [address] [address] [address] Performed By: #### 5 8410-2 ####[facility]IA [id number] [place] [address] [facility] Hematocrit (Bld) [Volume fraction] 44.5 % Normal 36.0-46.0 [facility] Comment on above: Order Comment: Speci men Type: BLOOD SPECIMENOrdering Facility: [facility] Address: [address] [place] [address] [address] [address] Performed By: #### 5 8410-2 ####[facility] [id number] [address] OF [facility] Hemoglobin (Bld) [Mass/Vol] 14.6 g/dL Normal 11.5-15.5 [facility] Comment on above: Order Comment: Speci men Type: BLOOD SPECIMENOrdering Facility: [facility] Address: [address] [place] [address] [address] [place] [address] Performed By: #### 5 8410-2 ####[facility] [id number] [address] [place] MCH (RBC) [Entitic mass] 32.2 pg Normal 26.0-34.0 [facility] Comment on above: Order Comment: Speci men Type: BLOOD SPECIMENOrdering Facility: [facility] Address: [address] [place] [address] [address] [address] Performed By: #### 5 8410-2 ####[facility] [id number] [address] MCHC (RBC) [Mass/Vol] 32.8 g/dL Normal 30.5-36.0 [facility] Comment on above: Order Comment: Speci men Type: BLOOD SPECIMENOrdering Facility: [facility] Address: [address] [place] [address] [address] [address] Performed By: #### 5 8410-2 ####[facility] [id number] [address] MCV (RBC) [Entitic vol] 98.2 fL Normal 80.0-100.0 [facility] Comment on above: Order Comment: Speci men Type: BLOOD SPECIMENOrdering Facility: [facility] Address: [address] [place] [address] [address], [place] [address] Performed By: #### 5 8410-2 ####[facility] [id number] [place] [address] [place] Nucleated RBC (Bld) [#/Vol] 10*3/uL Normal <0.01 [facility] Comment on above: Order Comment: Speci men Type: BLOOD SPECIMENOrdering Facility: [facility] Address: [address] [place] [address] [address] [place] [address] Performed By: #### 5 8410-2 ####[facility] [id number] [place] [address] [place] Platelet mean volume (Bld) [Entitic vol] 9.6 fL Normal 9.0-12.7 [facility] Comment on above: Order Comment: Speci men Type: BLOOD SPECIMENOrdering Facility: [facility] Address: [address] [place] [address] [address] [address] Performed By: #### 5 8410-2 ####[facility] [id number] [place] [address] [place] Platelets (Bld) [#/Vol] 335 10*3/uL Normal 150-400 [facility] Comment on above: Order Comment: Speci men Type: BLOOD SPECIMENOrdering Facility: [facility] Address: [address] [place] [address] [address] [address] Performed By: #### 5 8410-2 ####[facility] [id number] [place] [address] [place] RBC (Bld) [#/Vol] 4.53 10*6/uL Normal 3.90-5.20 [facility] Comment on above: Order Comment: Speci men Type: BLOOD SPECIMENOrdering Facility: [facility] Address: [address] [place] [address] [address] [address] Performed By: #### 5 8410-2 ####[facility] [id number] [place] [address] [place] WBC (Bld) [#/Vol] 5.76 10*3/uL Normal 3.70-11.00 [facility] Comment on above: Order Comment: Speci men Type: BLOOD SPECIMENOrdering Facility: [facility] Address: [address] [place] [address] [address], [place] [address] Performed By: #### 5 8410-2 ####[facility] LABCLIA [id number] [address] [place] [facility] NT-proBNP [facility] 02-18 Natriuretic peptide.B prohormone N-Terminal [Mass/Vol] 316 pg/mL High <125 [facility] Comment on above: Order Comment: Speci men Type: BLOOD SPECIMENOrdering Facility: [facility] Address: [address] [place] [address] [address], [place] [address] Performed By: #### 3 3762-6, 11705-2 ####[facility] [id number] [address] [place] Basic metabolic 2000 panelon 12-18-2023 Anion gap [Moles/Vol] 11 mmol/L Normal 8-15 [facility] Comment on above: Order Comment: Speci men Type: BLOOD SPECIMENOrdering Facility: External Submitter Address: , , Performed By: #### 2 4321-2, 67309-2 ####[facility] [id number] [place] [address] [place] Calcium [Mass/Vol] 9.7 mg/dL Normal 8.5-10.2 [facility] Comment on above: Order Comment: Speci men Type: BLOOD SPECIMENOrdering Facility: External Submitter Address: , , Performed By: #### 2 4321-2, 64922-4 ####[facility] [id number] [address] [place] [facility] Chloride [Moles/Vol] 102 mmol/L Normal 98-107 [facility] Comment on above: Order Comment: Speci men Type: BLOOD SPECIMENOrdering Facility: External Submitter Address: , , Performed By: #### 2 4321-2, 96449-2 ####[facility] LABCL[facility] [id number] [place] [address] [place] CO2 [Moles/Vol] 27 mmol/L Normal 22-30 [facility] Comment on above: Order Comment: Allan phelps Type: BLOOD SPECIMENOrdering Facility: External Submitter Address: , , Performed By: #### 2 4321-2, 58802-4 ####[facility] [id number] [place] [address] [place] Creatinine [Mass/Vol] 0.83 mg/dL Normal 0.58-0.96 [facility] Comment on above: Order Comment: Speci men Type: BLOOD SPECIMENOrdering Facility: External Submitter Address: , , Performed By: #### 2 4321-2, 06344-1 ####[facility] [id number] [address] Creatinine and Glomerular filtration rate.predicted panel (S/P/Bld) 78 mL/min/1.73m??? Normal >=60 [facility] Comment on above: Order Comment: Speci men Type: BLOOD SPECIMENOrdering Facility: External Submitter Address: , , Result Comment: Shira mated Glomerular Filtration Rate (eGFR) is calculated using the 2020 CKD-EPI creatinine equation. This equation utilizes serum creatinine, sex, and age as parameters. The creatinine assay has traceable calibration to isotope dilution-mass spectrometry. Refer to KDIGO guidelines for clinical interpretation. In patients with unstable renal function, e.g. those with acute kidney injury, the eGFR may not accurately reflect actual GFR. Performed By: #### 2 4321-2, 53096-5 ####[facility] [id number] [place] [address] [place] Glucose [Mass/Vol] 87 mg/dL Normal 74-99 [facility] Comment on above: Order Comment: Allan phelps Type: BLOOD SPECIMENOrdering Facility: External Submitter Address: , , Result Comment: The [place] [employer] (ADA) provides guidance for cutoff values for fasting glucose and random glucose. The ADA defines fasting as no caloric intake for at least 8 hours. Fasting plasma glucose results between 100 to 125 mg/dL indicate increased risk for diabetes (prediabetes). Fasting plasma glucose results greater than or equal to 126 mg/dL meet the criteria for diagnosis of diabetes. In the absence of unequivocal hyperglycemia, results should be confirmed by repeat testing. In a patient with classic symptoms of hyperglycemia or hyperglycemic crisis, random plasma glucose results greater than or equal to 200 mg/dL meet the criteria for diagnosis of diabetes. Reference: Standards of Medical Care in Diabetes 2016, [place] [employer]. Diabetes Care. 2016.39(Suppl 1). Performed By: #### 2 4321-2, 13237-9 ####[facility] [id number] [address] OF [facility] Potassium [Moles/Vol] 3.9 mmol/L Normal 3.7-5.1 [facility] Comment on above: Order Comment: Allan phelps Type: BLOOD SPECIMENOrdering Facility: External Submitter Address: , , Performed By: #### 2 4321-2, 18805-8 ####[facility] [id number] [address] Sodium [Moles/Vol] 140 mmol/L Normal 136-144 [facility] Comment on above: Order Comment: Allan phelps Type: BLOOD SPECIMENOrdering Facility: External Submitter Address: , , Performed By: #### 2 4321-2, 75503-8 ####[facility] [id number] [address] Urea nitrogen [Mass/Vol] 17 mg/dL Normal 7-21 [facility] Comment on above: Order Comment: Allan phelps Type: BLOOD SPECIMENOrdering Facility: External Submitter Address: , , Performed By: #### 2 4321-2, 90622-7 ####[facility] [id number] [address] CBC panel Auto (Bld)on 12-17 Erythrocyte distribution width (RBC) [Ratio] 12.3 % Normal 11.5-15.0 [facility] Comment on above: Order Comment: Allan phelps Type: BLOOD SPECIMENOrdering Facility: External Submitter Address: , , Performed By: #### 5 8410-2 ####[facility] [id number] [address] Hematocrit (Bld) [Volume fraction] 44.9 % Normal 36.0-46.0 [facility] Comment on above: Order Comment: Speci men Type: BLOOD SPECIMENOrdering Facility: External Submitter Address: , , Performed By: #### 5 8410-2 ####[facility] [id number] [address] Hemoglobin (Bld) [Mass/Vol] 14.6 g/dL Normal 11.5-15.5 [facility] Comment on above: Order Comment: Speci men Type: BLOOD SPECIMENOrdering Facility: External Submitter Address: , , Performed By: #### 5 8410-2 ####[facility] [id number] [address] MCH (RBC) [Entitic mass] 32.2 pg Normal 26.0-34.0 [facility] Comment on above: Order Comment: Speci men Type: BLOOD SPECIMENOrdering Facility: External Submitter Address: , , Performed By: #### 5 8410-2 ####[facility] [id number] [address] MCHC (RBC) [Mass/Vol] 32.5 g/dL Normal 30.5-36.0 [facility] Comment on above: Order Comment: Speci men Type: BLOOD SPECIMENOrdering Facility: External Submitter Address: , , Performed By: #### 5 8410-2 ####[facility] [id number] [address] MCV (RBC) [Entitic vol] 98.9 fL Normal 80.0-100.0 [facility] Comment on above: Order Comment: Speci men Type: BLOOD SPECIMENOrdering Facility: External Submitter Address: , , Performed By: #### 5 8410-2 ####[facility] [id number] [address] Nucleated RBC (Bld) [#/Vol] 10*3/uL Normal <0.01 [facility] Comment on above: Order Comment: Speci men Type: BLOOD SPECIMENOrdering Facility: External Submitter Address: , , Performed By: #### 5 8410-2 ####[facility] [id number] [address] Platelet mean volume (Bld) [Entitic vol] 9.3 fL Normal 9.0-12.7 [facility] Comment on above: Order Comment: Speci men Type: BLOOD SPECIMENOrdering Facility: External Submitter Address: , , Performed By: #### 5 8410-2 ####[facility] [id number] [address] Platelets (Bld) [#/Vol] 250 10*3/uL Normal 150-400 [facility] Comment on above: Order Comment: Speci men Type: BLOOD SPECIMENOrdering Facility: External Submitter Address: , , Performed By: #### 5 8410-2 ####[facility] [id number] [address] RBC (Bld) [#/Vol] 4.54 10*6/uL Normal 3.90-5.20 [facility] Comment on above: Order Comment: Speci men Type: BLOOD SPECIMENOrdering Facility: External Submitter Address: , , Performed By: #### 5 8410-2 ####[facility] [id number] [address] WBC (Bld) [#/Vol] 4.98 10*3/uL Normal 3.70-11.00 [facility] Comment on above: Order Comment: Speci men Type: BLOOD SPECIMENOrdering Facility: External Submitter Address: , , Performed By: #### 5 8410-2 ####[facility] [id number] [address] NT-proBNP [facility] 12-17 Natriuretic peptide.B prohormone N-Terminal [Mass/Vol] 342 pg/mL High <125 [facility] Comment on above: Order Comment: Speci men Type: BLOOD SPECIMENOrdering Facility: External Submitter Address: , , Performed By: #### 2 4321-2, 43561-1 ####[facility] LABCLIA [id number] [address] [place] ANES POSTPROC EVALon 024 ANES POSTPROC EVAL HNO ID: [id number] Author: AYLIN COLON MD Service: ? Author Type: Anesthesiologist Type: Anesthesia Postprocedure Evaluation Filed: 11/14/2023 14:04 Note Text: POST ANESTHESIA EVALUATION NOTE : 1955 Procedure Summary Date: 11/14/23 Room / Location: [facility] Anesthesia Start: 1154 Anesthesia Stop: 1240 Procedure: DUC Diagnosis: Scheduled Providers: Rupert Stein APRN.DIGITAL MARKETING CONSULTANT Responsible Provider: Aylin Colon MD Anesthesia Type: MAC ASA Status: 3 Anesthesia Type: MAC Last Vitals BP 98/69, RR 14 HR 57 SpO2 95% on room air Post Anesthesia Patient Status Patient Evaluation: PACU. PACU/ICU Patient Condition: stable. Anticipated Disposition: phase 2 then home. Neurological Status: aware and responsive. Pulmonary Status: breathing comfortably on room air Airway Control: returned to baseline unsupported. Cardiovascular Status: stable. Pain Management: clinically adequate Postoperative Hydration: acceptable. Intraoperative Events: no significant anesthesia events Post Operative Nausea/Vomiting Status: no significant post operative nausea or vomiting Recommendation: continue current plan of care. Other Remarks: No issues in PACU, vitals are stable. . Anesthesia Observations No notable events were associated with this procedure. Documented by Aylin Colon MD 11/14/2023 2:03 PM EDT SIGNATURE: Aylin Colon MD PATIENT NAME: Monie Serrano DATE: November 14, 2023 TIME: 2:03 PM CSN: [id number] Normal [facility] ANES PRE-OPon 11-14-2023 ANES PRE-OP HNO ID: [id number] Author: AYLIN COLON MD Service: ? Author Type: Anesthesiologist Type: Anesthesia Preprocedure Evaluation Filed: 11/14/2023 14:03 Note Text: ANESTHESIOLOGY DAY OF SURGERY NOTE Afib on Eliquis Denies CP/SOB PAST MEDICAL HISTORY PAST MEDICAL HISTORY Diagnosis Date NEGATIVE MEDICAL HISTORY Pernicious anemia Takes vitamin B12 shots monthly Vitamin D deficiency PAST SURGICAL HISTORY PAST SURGICAL HISTORY Procedure Laterality Date ANKLE SURGERY HX Right Achilles tendon surgery 2018 LAPAROSCOPY SURG CHOLECYSTECTOMY Cholecystectomy, lap FAMILY HISTORY FAMILY HISTORY Problem Relation Age of Onset Stroke Mother 70 other (pernicious anemia) Mother Cancer Father colon other (Multiple sclerosis) Father other (1 daughter with hemochromatosis, 1 son with Graves' disease, 1 daughter with rheumatoid arthritis, 1 son with asthma (all separate children)) Other other (pernicious anemia) Maternal Grandmother No Known Problems Maternal Grandfather No Known Problems Paternal Grandmother No Known Problems Paternal Grandfather No Known Problems Paternal Aunt No Known Problems Paternal Aunt No Known Problems Paternal Uncle No Known Problems Paternal Uncle No Known Problems Paternal Uncle Rheumatologic disease Daughter other (hyperthyroid) Son SOCIAL HISTORY Social History Tobacco Use Smoking status: Never Smokeless tobacco: Never Substance Use Topics Alcohol use: Yes Comment: occ, once per year or less Drug use: No : 1955 Procedure Information Anesthesia Start Date/Time: 11/14/23 1154 Scheduled providers: Rupert Stein APRN.DIGITAL MARKETING CONSULTANT Procedure: DUC Location: [facility] Estimated body mass index is 31.92 kg/m? as calculated from the following: Height as of 10/23/23: 167.6 cm (5' 6). Weight as of 10/26/23: 89.7 kg (197 lb 12 oz). Most recent hematocrit and potassium results: Hematocrit 40.3 10/26/2023 Potassium 4.4 10/26/2023 Relevant Problems No relevant active problems I - PHYSICAL EVALUATION AIRWAY Patient intubated: No. Tracheostomy tube not present Mallampati: II. TM distance: >3 FB. Neck ROM: full ROM without neurological symptoms. Mouth opening: adequate. Short neck: no. Thick neck: no DENTAL Dental findings: teeth intact. Additional exam findings: yes. CARDIOVASCULAR Rhythm: irregular Rate: normal Murmur not present. PULMONARY Breath sounds clear to auscultation. Rhonchi not present. ABDOMINAL Abdomen: soft. Bowel sounds: normal. II - ANESTHESIA PLAN ASA Score: 3 Anesthetic Plan: MAC The patient is not a current smoker. NPO Status: adequate Beta Ritu Monitoring Plan Monitoring plan: standard ASA. Post Procedure Analgesic Plan Informed Consent Anesthetic risks, benefits, alternatives, personnel and consent discussed: yes. Patient / Responsible Green Party agrees to proceed: yes Patient / Surrogate agrees to blood products: blood products not planned Potential Anesthesia issues that may suggest increased risk of complications or contraindication to planned procedure:. Potential cardiovascular complications due to preexisting conditions. Discussed the possibility of lip / dental damage: yes Vitals Value Taken Time BP 95/63 11/14/23 1147 Pulse 88 11/14/23 1147 Resp 14 11/14/23 1147 Temp SpO2 100 % 11/14/23 1147 Outpatient Medications as of 11/14/2023 Medication Sig apixaban (ELIQUIS) 5 mg tab(s) Take 1 tablet by mouth two times a day. metoprolol succinate ER (TOPROL XL) 100 mg Take 1 tablet by mouth once daily. empagliflozin (JARDIANCE) 10 mg tablet Take 1 tablet by mouth once daily. furosemide (LASIX) 20 mg tablet Take 0.5 tablets by mouth once daily. magnesium oxide 400 mg magnesium cap Take 400 mg by mouth once daily. cyanocobalamin 1,000 mcg/mL once every month. CALCIUM ORAL Take by mouth twice daily. cholecalciferol, vitamin D3, (VITAMIN D3 ORAL) Take by mouth twice daily. dilTIAZem CD (CARDIZEM CD, CARTIA XT) 120 mg 24 hr capsule Take 1 capsule by mouth once daily. Facility-Administered Medications as of 11/14/2023 Medication Dose Route Frequency sodium chloride 0.9 % (flush) 2-10 mL (BD POSIFLUSH) 2-10 mL INTRAVENOUS ONCE NaCl 0.9% iv infusion 75 mL/hr INTRAVENOUS CONTINUOUS propofol injection (DIPRIVAN) INTRAVENOUS PRN viyytpyt-kfseohgmyj-u enzocaine 2 %-2 %-14 % (200 mg/sec) 1 [place] (EXACTACAINE/CETACAIN E) 1 [place] MUCOUS MEMBRANE (TOPICAL MOUTH AND THROAT) ONCE I have interviewed and examined the patient. I have reviewed the medical record and/or the pre-anesthesia evaluation, pertinent labs, and test results. This contains updated information obtained within 48 hours of Surgery/Procedure. SIGNATURE: Rupert Stein APRN.DIGITAL MARKETING CONSULTANT PATIENT NAME: Monie Serrano DATE: November 14, 2023 TIME: 12:15 PM CSN: [id number] Normal [facility] ECG COMPLETEon 11-14-2023 Calculated R [place] 15 degrees [facility] Calculated T [place] 46 degrees [facility] QRS Duration 78 ms [facility] QT Interval 362 ms [facility] QTC Calculation (Bazett) 447 ms [facility] Ventricular Rate 92 BPM [facility] Atrial fibrillation Cannot rule out Inferior infarct (cited on or before 23-Oct-2023) Abnormal ECG When compared with ECG of 23-Oct-2023 15:05, Vent. rate has decreased by 47 bpm Confirmed by NGA BOYLE MD ([id number]) on 11/14/2023 4:57:45 PM [facility] NAME : MONIE SERRANO PID : [id number] : 1955 Gender : Female Race : ORD : [id number] Procedure Date : Nov 14 2023 09:55:24 Edit Date : Nov 14 2023 16:57:50 Diagnosis: Atrial fibrillation Cannot rule out Inferior infarct (cited on or before 23-Oct-2023) Abnormal ECG When compared with ECG of 23-Oct-2023 15:05, Vent. rate has decreased by 47 bpm Confirmed by NGA BOYLE MD ([id number]) on 11/14/2023 4:57:45 PM Test Reason : HCS Location : 7 : [facility] Overread By : NGA BOYLE MD Edited By : NGA BOYLE MD Referred By : JENNIFER KIDD Acquired by : AYLIN WARD [facility] Atrial Rate 62 BPM [facility] Calculated P [place] 49 degrees [facility] Calculated R [place] 15 degrees [facility] Calculated T [place] 36 degrees [facility] P-R Interval 166 ms [facility] QRS Duration 84 ms [facility] QT Interval 454 ms [facility] QTC Calculation (Bazett) 460 ms [facility] Ventricular Rate 62 BPM [facility] Sinus rhythm with marked sinus arrhythmia Otherwise normal ECG When compared with ECG of 14-Nov-2023 09:55, Sinus rhythm has replaced Atrial fibrillation Vent. rate has decreased by 30 bpm Confirmed by NGA BOYLE MD ([id number]) on 11/14/2023 4:57:31 PM [facility] NAME : MONIE SERRANO PID : [id number] : 1955 Gender : Female Race : ORD : [id number] Procedure Date : Nov 14 2023 12:46:39 Edit Date : Nov 14 2023 16:57:32 Diagnosis: Sinus rhythm with marked sinus arrhythmia Otherwise normal ECG When compared with ECG of 14-Nov-2023 09:55, Sinus rhythm has replaced Atrial fibrillation Vent. rate has decreased by 30 bpm Confirmed by NGA BOYLE MD ([id number]) on 11/14/2023 4:57:31 PM Test Reason : HCS Location : 7 : CARD Overread By : NGA BOYLE MD Edited By : NGA BOYLE MD Referred By : JENNIFER KIDD Acquired by : [facility] ECG COMPLETE Ventricular Rate : 6 2 BPM Atrial Rate : 62 BPM P-R Interval : 166 ms QRS Duration : 84 ms Q-T Interval : 454 ms QTC Calculation(Bazett) : 460 ms Calculated P [place] : 49 degrees Calculated R [place] : 15 degrees Calculated T [place] : 36 degrees Sinus rhythm with marked sinus arrhythmia Otherwise normal ECG When compared with ECG of 14-Nov-2023 09:55, Sinus rhythm has replaced Atrial fibrillation Vent. rate has decreased by 30 bpm Confirmed by NGA BOYLE MD ([id number]) on 11/14/2023 4:57:31 PM NAME : MONIE SERRANO PID : [id number] : 1955 Gender : Female Race : ORD : [id number] Procedure Date : Nov 14 2023 12:46:39 Edit Date : Nov 14 2023 16:57:32 Diagnosis: Sinus rhythm with marked sinus arrhythmia Otherwise normal ECG When compared with ECG of 14-Nov-2023 09:55, Sinus rhythm has replaced Atrial fibrillation Vent. rate has decreased by 30 bpm Confirmed by NGA BOYLE MD ([id number]) on 11/14/2023 4:57:31 PM Test Reason : HCS Location : 7 : CARD Overread By : NGA BOYLE MD Edited By : NGA BOYLE MD Referred By : JENNIFER KIDD [facility] Vent[facility] Rate : 9 2 BPM QRS Duration : 78 ms Q-T Interval : 362 ms QTC Calculation(Bazett) : 447 ms Calculated R [place] : 15 degrees Calculated T [place] : 46 degrees Atrial fibrillation Cannot rule out Inferior infarct (cited on or before 23-Oct-2023) Abnormal ECG When compared with ECG of 23-Oct-2023 15:05, Vent. rate has decreased by 47 bpm Confirmed by NGA BOYLE MD ([id number]) on 11/14/2023 4:57:45 PM NAME : MONIE SERRANO PID : [id number] : 1955 Gender : Female Race : ORD : [id number] Procedure Date : Nov 14 2023 09:55:24 Edit Date : Nov 14 2023 16:57:50 Diagnosis: Atrial fibrillation Cannot rule out Inferior infarct (cited on or before 23-Oct-2023) Abnormal ECG When compared with ECG of 23-Oct-2023 15:05, Vent. rate has decreased by 47 bpm Confirmed by NGA BOYLE MD ([id number]) on 11/14/2023 4:57:45 PM Test Reason : [facility] Location : 7 : [facility] Overread By : NGA BOYLE MD Edited By : NGA BOYLE MD Referred By : JENNIFER KIDD Acquired by : AYLIN WARD [facility] ECHO TRANSESOPHAGEALon 11-13 CONCLUSIONS: - Exam indication: Sustained atrial fibrillation - The left ventricle is normal in size. Left ventricular systolic function is mildly decreased. - The right ventricle is normal in size. - The left atrial cavity is mildly dilated. 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 - There is moderate (2+ - 3+) tricuspid valve regurgitation. There is no significant change. * * * Final * * * [facility] Echocardiography Report: Transesophageal Echo [facility] Date of service: 11/14/2023 11:54:37 AM Ordering physician: NGA BOYLE Indication: Sustained atrial fibrillation Technologist: Jose Adame BA, RVT Interpreting physician: Nga Boyle MD PATIENT: Name: MONIE SERRANO : 1955 Age: 67 years Gender: F Primary rhythm: atrial fib. Height: 167.60 cm BSA: 2.04 m Weight: 89.70 kg BMI: 31.9 kg/m Pre Heart rate 106 bpm Blood pressure 114/68 mmHg Color Doppler was utilized to interrogate the cardiac valves assessed and spectral Doppler was utilized to determine the flow velocities and pressure gradients reported in this exam. Propofol 320 mg. Exam performed under general csvveseaep64 min. (Stop Time: 12:24:13) No specimens collected. No blood loss. The interpreting physician was present for and actively participated in the DUC procedure. FINDINGS: LEFT VENTRICLE The left ventricle is normal in size. Left ventricular systolic function is mildly decreased. RIGHT VENTRICLE The right ventricle is normal in size. LEFT ATRIUM The left atrial cavity is mildly dilated. The left atrial appendage is multilobed. There is no left atrial appendage thrombus. RIGHT ATRIUM The right atrial cavity is small. MITRAL VALVE There is no mitral stenosis. 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 TRICUSPID VALVE There is no tricuspid stenosis. There is moderate (2+ - 3+) tricuspid valve regurgitation. AORTIC VALVE There is no aortic valve stenosis. There is no aortic valve regurgitation. Tricuspid aortic valve. PULMONIC VALVE There is no pulmonic stenosis. There is trace pulmonic valve regurgitation. [facility] ECHO TRANSESOPHAGEAL Echocardiography Report: Transesophageal Echo [facility] Date of service: 11/14/2023 11:54:37 AM Ordering physician: NGA BOYLE Indication: Sustained atrial fibrillation Technologist: Jose Adame BA, RVT Interpreting physician: Nga Boyle MD PATIENT: Name: MONIE SERRANO : 1955 Age: 67 years Gender: F Primary rhythm: atrial fib. Height: 167.60 cm BSA: 2.04 m Weight: 89.70 kg BMI: 31.9 kg/m Pre Heart rate 106 bpm Blood pressure 114/68 mmHg Color Doppler was utilized to interrogate the cardiac valves assessed and spectral Doppler was utilized to determine the flow velocities and pressure gradients reported in this exam. Propofol 320 mg. Exam performed under general [id number] min. (Stop Time: 12:24:13) No specimens collected. No blood loss. The interpreting physician was present for and actively participated in the DUC procedure. FINDINGS: LEFT VENTRICLE The left ventricle is normal in size. Left ventricular systolic function is mildly decreased. RIGHT VENTRICLE The right ventricle is normal in size. LEFT ATRIUM The left atrial cavity is mildly dilated. The left atrial appendage is multilobed. There is no left atrial appendage thrombus. RIGHT ATRIUM The right atrial cavity is small. MITRAL VALVE There is no mitral stenosis. 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 TRICUSPID VALVE There is no tricuspid stenosis. There is moderate (2+ - 3+) tricuspid valve regurgitation. AORTIC VALVE There is no aortic valve stenosis. There is no aortic valve regurgitation. Tricuspid aortic valve. PULMONIC VALVE There is no pulmonic stenosis. There is trace pulmonic valve regurgitation. CONCLUSIONS: - Exam indication: Sustained atrial fibrillation - The left ventricle is normal in size. Left ventricular systolic function is mildly decreased. - The right ventricle is normal in size. - The left atrial cavity is mildly dilated. 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 - There is moderate (2+ - 3+) tricuspid valve regurgitation. There is no significant change. * * * Final * * * CC [employer] [facility] Image : [id number] amicsSISUID [facility] HIST[facility] PHYSICALon HISTORY PHYSICAL HNO ID: [id number] Author: NGA BOYLE MD Service: Cardiovascular Disease Author Type: Physician Type: H&P Filed: 11/14/2023 11:51 Note Text: CONSULT: CARDIOLOGY SERVICE SERVICE DATE: 11/14/2023 SERVICE TIME: CONSULTING PHYSICIAN: Nga Boyle PCP: Josiah Donovan MD, MD ATTENDING: No att. providers found REASON FOR CONSULT: Arrhythmias Subjective CHIEF COMPLAINT: No admission diagnoses are documented for this encounter. HISTORY OF PRESENT ILLNESS: Ms. Serrano is a 67 year old female who presents for atrial fibrillation. She was diagnosed with atrial fibrillation recently has been anticoagulation less than 4 weeks. She had a recent stress test which was unremarkable. Her last echocardiogram showed the systolic function was mildly decreased RV size was normal with mild MR. Denies any dysphagia no history peptic ulcer disease PAST MEDICAL HISTORY Diagnosis Date NEGATIVE MEDICAL HISTORY Pernicious anemia Takes vitamin B12 shots monthly Vitamin D deficiency PAST SURGICAL HISTORY Procedure Laterality Date ANKLE SURGERY HX Right Achilles tendon surgery 2018 LAPAROSCOPY SURG CHOLECYSTECTOMY Cholecystectomy, lap FAMILY HISTORY Problem Relation Age of Onset Stroke Mother 70 other (pernicious anemia) Mother Cancer Father colon other (Multiple sclerosis) Father other (1 daughter with hemochromatosis, 1 son with Graves' disease, 1 daughter with rheumatoid arthritis, 1 son with asthma (all separate children)) Other other (pernicious anemia) Maternal Grandmother No Known Problems Maternal Grandfather No Known Problems Paternal Grandmother No Known Problems Paternal Grandfather No Known Problems Paternal Aunt No Known Problems Paternal Aunt No Known Problems Paternal Uncle No Known Problems Paternal Uncle No Known Problems Paternal Uncle Rheumatologic disease Daughter other (hyperthyroid) Son Social History Tobacco Use Smoking status: Never Smokeless tobacco: Never Substance Use Topics Alcohol use: Yes Comment: occ, once per year or less Drug use: No Cannot display prior to admission medications because the patient has not been admitted in this contact. Current Facility-Administered Medications Medication Dose Route Frequency sodium chloride 0.9 % (flush) 2-10 mL (BD POSIFLUSH) 2-10 mL INTRAVENOUS ONCE NaCl 0.9% iv infusion 75 mL/hr INTRAVENOUS CONTINUOUS ALLERGIES No Known Allergies CARDIAC STATUS: REVIEW OF SYSTEMS: Review of symptom obtained pertinent mentioned in HPI Objective PHYSICAL EXAM: Oriented time place and person S1-S2 irregular regular Abdomen soft nontender No pedal edema There is no height or weight on file to calculate BMI. No data recorded No data found. DATA: Diagnostic tests reviewed for today's visit: Past 72 Hour Labs: Last Lab Drawn: TSH 1.250 10/23/2023 Prior Cardiac Workup: Impression/Recommenda tions Active Problems: * No active hospital problems. * Resolved Problems: * No resolved hospital problems. * #1 A-fib new onset 2. 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 Additional orders include SIGNATURE: Nga Boyle MD PATIENT NAME: Monie Serrano DATE: November 14, 2023 TIME: 11:49 AM Normal [facility] CBC panel Auto (Bld)on 10-25 Erythrocyte distribution width (RBC) [Ratio] 12.4 % Normal 11.5-15.0 [facility] Comment on above: Order Comment: Speci men Type: BLOOD SPECIMENOrdering Facility: [facility] Address: [address] [place] [address] Performed By: #### 5 8410-2 ####[facility] LABIA [id number] [address] Hematocrit (Bld) [Volume fraction] 40.3 % Normal 36.0-46.0 [facility] Comment on above: Order Comment: Speci men Type: BLOOD SPECIMENOrdering Facility: [facility] Address: [address] [place] [address] Performed By: #### 5 8410-2 ####[facility] [id number] [address] OF [facility] Hemoglobin (Bld) [Mass/Vol] 13.1 g/dL Normal 11.5-15.5 [facility] Comment on above: Order Comment: Speci men Type: BLOOD SPECIMENOrdering Facility: [facility] Address: [address] [place] [address] Performed By: #### 5 8410-2 ####[facility] LABIA [id number] [address] [place] MCH (RBC) [Entitic mass] 32.1 pg Normal 26.0-34.0 [facility] Comment on above: Order Comment: Speci men Type: BLOOD SPECIMENOrdering Facility: [facility] Address: [address] [place] [address] Performed By: #### 5 8410-2 ####[facility] [id number] [address] MCHC (RBC) [Mass/Vol] 32.5 g/dL Normal 30.5-36.0 [facility] Comment on above: Order Comment: Speci men Type: BLOOD SPECIMENOrdering Facility: [facility] Address: [address] [place] [address] Performed By: #### 5 8410-2 ####[facility] [id number] [place] [address] [facility] MCV (RBC) [Entitic vol] 98.8 fL Normal 80.0-100.0 [facility] Comment on above: Order Comment: Speci men Type: BLOOD SPECIMENOrdering Facility: [facility] Address: [address] [place] [address] Performed By: #### 5 8410-2 ####[facility] [id number] [place] [address] [facility] Nucleated RBC (Bld) [#/Vol] 10*3/uL Normal <0.01 [facility] Comment on above: Order Comment: Speci men Type: BLOOD SPECIMENOrdering Facility: [facility] Address: [address] [place] [address] Performed By: #### 5 8410-2 ####[facility] [id number] [address] [place] Platelet mean volume (Bld) [Entitic vol] 9.3 fL Normal 9.0-12.7 [facility] Comment on above: Order Comment: Speci men Type: BLOOD SPECIMENOrdering Facility: [facility] Address: [address] [place] [address] Performed By: #### 5 8410-2 ####[facility] [id number] [address] Platelets (Bld) [#/Vol] 305 10*3/uL Normal 150-400 [facility] Comment on above: Order Comment: Speci men Type: BLOOD SPECIMENOrdering Facility: [facility] Address: [address] [place] [address] Performed By: #### 5 8410-2 ####[facility] [id number] [place] [address] [place] RBC (Bld) [#/Vol] 4.08 10*6/uL Normal 3.90-5.20 [facility] Comment on above: Order Comment: Speci men Type: BLOOD SPECIMENOrdering Facility: [facility] Address: [address] [place] [address] Performed By: #### 5 8410-2 ####[facility] LABCLIA [id number] [place] [address] [facility] WBC (Bld) [#/Vol] 5.42 10*3/uL Normal 3.70-11.00 [facility] Comment on above: Order Comment: Speci men Type: BLOOD SPECIMENOrdering Facility: [facility] Address: [address] [place], [place] [address] Performed By: #### 5 8410-2 ####[facility] LABIA [id number] [place] [address] [facility] CNDSon 10-26-2023 CNDS HNO ID: [id number] Author: SALVADOR PORTILLO APRN.CNP Service: Hospital Medicine Author Type: Nurse Practitioner Type: Discharge Summary Filed: 10/26/2023 11:18 Note Text: DISCHARGE SUMMARY PATIENT NAME: Monie Serrano ADMISSION DATE: 10/23/2023 DISCHARGE DATE: 10/26/2023 ATTENDING PHYSICIAN: Tegan Delvalle MD Code Status: Full Code Highest Readmission Risk Score: 16 The 30 day readmissions risk score is derived from an internally validated risk model which evaluates patient level characteristics, utilization history, medication orders and lab results up until the day of discharge. Patients with a score of 40 or above are considered highest risk for readmission. Specific patient level drivers will be listed at the bottom of the summary. CONSULTING TEAMS DURING HOSPITALIZATION: Treatment Team: Attending Provider: Tegan Delvalle MD Primary Service: BEATRIZ BRO Consulting: Renaldo Pennington MD REASON FOR HOSPITALIZATION: atrial fib DIAGNOSIS: Principal Problem: New onset atrial fibrillation (HCC) (POA: Yes) Active Problems: Hyperglycemia (POA: Yes) A-fib (HCC) (POA: Yes) Resolved Problems: Shortness of breath (POA: Yes) Elevated brain natriuretic peptide (BNP) level (POA: Yes) Positive D dimer (POA: Yes) OPERATIONS DURING HOSPITALIZATION: None PROCEDURES DURING HOSPITALIZATION: No procedures performed HOSPITAL COURSE: HPI: This is a 67 year old female who presents with not much of a pmh. She does have a history of nocturnal muscle cramps, myalgia and generalized weakness. She states that she felt she was just having some allergy issues as her head felt stuffy, her nose felt stuffy and she felt a little short of breath. She did go to her family physician today. They sent her to be evaluated in the emergency department as they felt that she was in atrial fibrillation. Patient reports her symptoms started this past Friday. Troponins . PT 12.7. aPTT 30.9. INR 1.1. TSH within normal limits. Glucose 118 otherwise comprehensive metabolic panel unremarkable. Mag within normal limits. BNP 1537. D-dimer 447. CBC unremarkable. Denies cp/sob at rest/n/v/d/abd pain/fever/chills. Admits to sob with activity. ED course: Labs as above CXR:IMPRESSION: Right basilar opacities can represent atelectasis or infiltrates. Correlation with clinical concern for infection may be of value. Prominence of the perihilar markings which can be seen with pulmonary edema. Lovenox Cardizem bolus and drip Lopressor Normal saline bolus New onset atrial fibrillation (HCC) No chest pain Echo Stress test Continue Cardizem drip hospital monitor Cardiology consult Shortness of breath No current oxygen needs Last documented pulse ox is 97% on room air Lasix daily Monitor pulse ox Elevated brain natriuretic peptide (BNP) level Echo Stress test hospital monitor Cardiology consult Daily weight I's and O's Lasix daily Positive D dimer D-dimer [address] PE rule out as pt does have sob Hyperglycemia Glucose 118 No history of diabetes Appears to have not had hemoglobin A1c done recently A1c in am Daily CMP IMPRESSION: Newly documented persistent a fib. CV 3. Duration uncertain. I discussed anticoagulation, rate vs rhythm control, DCCV and PVI. I would favor DOAC and DCCV after about 3-4 weeks. If a fib reoccurs, ablation can be done. 2. 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 Elevated glucose 4. BMI 32. Trent weight 150 lbs. I discussed Legacy study. 5. H/o pernicious anemia PLAN: Toprol 100 mg every day Lasix 20 mg IV bid Aldactone 25 mg every day Later Eliquis 5 mg bid Await Mykel figueredo May do DCCV in 1 month SIGNATURE: Jennifer Kidd MD Principal Problem: New onset atrial fibrillation (HCC) (POA: Yes) -persistent, onset uncertain -Heart rate in the 90s at rest on metoprolol 100 mg and diltiazem 120 mg daily. States dyspnea has improved. No other symptoms like lightheadedness, chest pain, presyncope, syncope. -continue uninterrupted apixaban 5 mg BID -schedule with cardiology in 1-2 weeks and cardioversion in 3-4 weeks. If recurred, ablation versus antiarrhythmic therapy Heart failure preserved ejection fraction -She is euvolemic on exam. Stress test done here was negative for ischemia or infarct. Patient is on lasix and will send home on oral lasix 20 mg. Will start SGLT2-inhibitor SIGNATURE: Amina Hylton MD Results from CT chest r/o PE, CXR, echo, stress test can be found in the chart Transitions of Care Critical Issues: LABS AND PROCEDURES PENDING AT DISCHARGE: No pending results. PATIENT CONDITION AT DISCHARGE: Stable DISCHARGE DISPOSITION: Home with Self Shelter with Self Care Sitting in recliner in room. Just returned from walking the halls. She feels good and is ready to go home. Discussed in depth her dc instruct (more content not included)... Normal [facility] Comprehensive metabolic 2000 panelon 10-26-2023 Albumin [Mass/Vol] 4.3 g/dL Normal 3.9-4.9 [facility] Comment on above: Order Comment: Allan phelps Type: BLOOD SPECIMENOrdering Facility: [facility] Address: [address] [place] [address] Performed By: #### 2 4323-8 ####[facility] LABCLIA [id number] [address] STATES OF [facility] ALP [Catalytic activity/Vol] 110 U/L Normal 34-123 [facility] Comment on above: Order Comment: Allan phelps Type: BLOOD SPECIMENOrdering Facility: [facility] Address: [address] [place] [address] Performed By: #### 2 4323-8 ####[facility] LABIA [id number] [place] [address] [place] ALT [Catalytic activity/Vol] 16 U/L Normal 7-38 [facility] Comment on above: Order Comment: Speci men Type: BLOOD SPECIMENOrdering Facility: [facility] Address: [address] [place] [address] Performed By: #### 2 4323-8 ####[facility] LABIA [id number] [place] [address] [place] Anion gap [Moles/Vol] 12 mmol/L Normal 8-15 [facility] Comment on above: Order Comment: Speci men Type: BLOOD SPECIMENOrdering Facility: [facility] Address: [address] [place] [address] Performed By: #### 2 4323-8 ####[facility] [id number] [address] [place] AST [Catalytic activity/Vol] 16 U/L Normal 13-35 [facility] Comment on above: Order Comment: Speci men Type: BLOOD SPECIMENOrdering Facility: [facility] Address: [address] [place] [address] Performed By: #### 2 4323-8 ####[facility] [id number] [place] [address] [place] Bilirubin [Mass/Vol] 0.7 mg/dL Normal 0.2-1.3 [facility] Comment on above: Order Comment: Speci men Type: BLOOD SPECIMENOrdering Facility: [facility] Address: [address] [place] [address] Performed By: #### 2 4323-8 ####[facility] [id number] [address] STATES OF [facility] Calcium [Mass/Vol] 9.4 mg/dL Normal 8.5-10.2 [facility] Comment on above: Order Comment: Speci men Type: BLOOD SPECIMENOrdering Facility: [facility] Address: [address] [place] [address] Performed By: #### 2 4323-8 ####[facility] LABIA [id number] [place] [address] [place] Chloride [Moles/Vol] 104 mmol/L Normal 98-107 [facility] Comment on above: Order Comment: Speci men Type: BLOOD SPECIMENOrdering Facility: [facility] Address: [address] [place] [address] Performed By: #### 2 4323-8 ####[facility] [id number] [place] [address] [place] CO2 [Moles/Vol] 24 mmol/L Normal 22-30 [facility] Comment on above: Order Comment: Speci men Type: BLOOD SPECIMENOrdering Facility: [facility] Address: [address] [place] [address] Performed By: #### 2 4323-8 ####[facility] [id number] [place] [address] [place] Creatinine [Mass/Vol] 0.88 mg/dL Normal 0.58-0.96 [facility] Comment on above: Order Comment: Speci men Type: BLOOD SPECIMENOrdering Facility: [facility] Address: [address] [place] [address] Performed By: #### 2 4323-8 ####[facility] [id number] [place] [address] [facility] Creatinine and Glomerular filtration rate.predicted panel (S/P/Bld) 73 mL/min/1.73m??? Normal >=60 [facility] Comment on above: Order Comment: Speci men Type: BLOOD SPECIMENOrdering Facility: [facility] Address: [address] [place] [address] Result Comment: Shira mated Glomerular Filtration Rate (eGFR) is calculated using the 2020 CKD-EPI creatinine equation. This equation utilizes serum creatinine, sex, and age as parameters. The creatinine assay has traceable calibration to isotope dilution-mass spectrometry. Refer to KDIGO guidelines for clinical interpretation. In patients with unstable renal function, e.g. those with acute kidney injury, the eGFR may not accurately reflect actual GFR. Performed By: #### 2 4323-8 ####[facility] LABIA [id number] [place] [address] [place] Glucose [Mass/Vol] 134 mg/dL High 74-99 [facility] Comment on above: Order Comment: Allan mattie Type: BLOOD SPECIMENOrdering Facility: [facility] Address: [address] [place] [address] Result Comment: The [place] Diabetes Association (ADA) provides guidance for cutoff values for fasting glucose and random glucose. The ADA defines fasting as no caloric intake for at least 8 hours. Fasting plasma glucose results between 100 to 125 mg/dL indicate increased risk for diabetes (prediabetes). Fasting plasma glucose results greater than or equal to 126 mg/dL meet the criteria for diagnosis of diabetes. In the absence of unequivocal hyperglycemia, results should be confirmed by repeat testing. In a patient with classic symptoms of hyperglycemia or hyperglycemic crisis, random plasma glucose results greater than or equal to 200 mg/dL meet the criteria for diagnosis of diabetes. Reference: Standards of Medical Care in Diabetes 2016, [place] [employer] Association. Diabetes Care. 2016.39(Suppl 1). Performed By: #### 2 4323-8 ####[facility]IA [id number] [place] [address] [place] Potassium [Moles/Vol] 4.4 mmol/L Normal 3.7-5.1 [facility] Comment on above: Order Comment: Allan phelps Type: BLOOD SPECIMENOrdering Facility: [facility] Address: [address] [place] [address] Performed By: #### 2 4323-8 ####[facility] LABIA [id number] [place] [address] [place] Protein [Mass/Vol] 7.3 g/dL Normal 6.3-8.0 [facility] Comment on above: Order Comment: Allan phelps Type: BLOOD SPECIMENOrdering Facility: [facility] Address: [address] [place], [place] [address] Performed By: #### 2 4323-8 ####[facility] LABIA [id number] [address] STATES [facility] Sodium [Moles/Vol] 140 mmol/L Normal 136-144 [facility] Comment on above: Order Comment: Speci men Type: BLOOD SPECIMENOrdering Facility: [facility] Address: [address] [place] [address] Performed By: #### 2 4323-8 ####[facility] LABIA [id number] [place] [address] [place] Urea nitrogen [Mass/Vol] 22 mg/dL High 7-21 [facility] Comment on above: Order Comment: Speci men Type: BLOOD SPECIMENOrdering Facility: [facility] Address: [address] [place] [address] Performed By: #### 2 4323-8 ####[facility] [id number] [place] [address] [place] CBC panel Auto (Bld)on 10-24 Erythrocyte distribution width (RBC) [Ratio] 12.7 % Normal 11.5-15.0 [facility] Comment on above: Order Comment: Speci men Type: BLOOD SPECIMENOrdering Facility: [facility] Address: [address] [place] [address] Performed By: #### 5 8410-2 ####[facility] [id number] [place] [address] [place] Hematocrit (Bld) [Volume fraction] 36.2 % Normal 36.0-46.0 [facility] Comment on above: Order Comment: Speci men Type: BLOOD SPECIMENOrdering Facility: [facility] Address: [address] [place] [address] Performed By: #### 5 8410-2 ####[facility] LABIA [id number] [place] [address] [place] [facility] Hemoglobin (Bld) [Mass/Vol] 12.3 g/dL Normal 11.5-15.5 [facility] Comment on above: Order Comment: Speci men Type: BLOOD SPECIMENOrdering Facility: [facility] Address: [address] [place] [address] Performed By: #### 5 8410-2 ####[facility] LABIA [id number] [address] MCH (RBC) [Entitic mass] 32.9 pg Normal 26.0-34.0 [facility] Comment on above: Order Comment: Speci men Type: BLOOD SPECIMENOrdering Facility: [facility] Address: [address] [place] [address] Performed By: #### 5 8410-2 ####[facility] [id number] [address] MCHC (RBC) [Mass/Vol] 34.0 g/dL Normal 30.5-36.0 [facility] Comment on above: Order Comment: Speci men Type: BLOOD SPECIMENOrdering Facility: [facility] Address: [address] [place] [address] Performed By: #### 5 8410-2 ####[facility] [id number] [address] MCV (RBC) [Entitic vol] 96.8 fL Normal 80.0-100.0 [facility] Comment on above: Order Comment: Speci men Type: BLOOD SPECIMENOrdering Facility: [facility] Address: [address] [place] [address] Performed By: #### 5 8410-2 ####[facility] [id number] [address] STATES [facility] Nucleated RBC (Bld) [#/Vol] 10*3/uL Normal <0.01 [facility] Comment on above: Order Comment: Speci men Type: BLOOD SPECIMENOrdering Facility: [facility] Address: [address] [place] [address] Performed By: #### 5 8410-2 ####[facility] LABIA [id number] [address] [place] Platelet mean volume (Bld) [Entitic vol] 9.4 fL Normal 9.0-12.7 [facility] Comment on above: Order Comment: Speci men Type: BLOOD SPECIMENOrdering Facility: [facility] Address: [address] [place] [address] Performed By: #### 5 8410-2 ####[facility] LABIA [id number] [place] [address] [facility] Platelets (Bld) [#/Vol] 279 10*3/uL Normal 150-400 [facility] Comment on above: Order Comment: Speci men Type: BLOOD SPECIMENOrdering Facility: [facility] Address: [address] [place] [address] Performed By: #### 5 8410-2 ####[facility]IA [id number] [place] [address] [place] RBC (Bld) [#/Vol] 3.74 10*6/uL Low 3.90-5.20 [facility] Comment on above: Order Comment: Speci men Type: BLOOD SPECIMENOrdering Facility: [facility] Address: [address] [place] [address] Performed By: #### 5 8410-2 ####[facility] LABIA [id number] [place] [address] [facility] WBC (Bld) [#/Vol] 5.29 10*3/uL Normal 3.70-11.00 [facility] Comment on above: Order Comment: Speci men Type: BLOOD SPECIMENOrdering Facility: [facility] Address: [address] [place] [address] Performed By: #### 5 8410-2 ####[facility] LABIA [id number] [place] [address] [facility] CONSULT PROGon 10-25-2023 CONSULT PROG HNO ID: [id number] Author: QUENTIN BUCK RPh Service: Pharmacy Author Type: Pharmacist Type: Consult Progress Note Filed: 10/25/2023 13:31 Note Text: PHARMACY ANTICOAGULATION EDUCATION Patient Name: Monie Serrano Account #: Data Unavailable Admission Date: 10/23/2023 2:56 PM Date of Contact: October 25, 2023 Time of Contact: 1:31 PM Patient anticipated to be discharged on Apixaban as oral anticoagulation therapy. Anticoagulant history: Patient is new to anticoagulation therapy Indication for oral anticoagulation: atrial fibrillation/atrial flutter Anticoagulant education status: Patient received full anticoagulation education Reason for taking anticoagulation How this anticoagulant works When to take medication and what to do if a dose is missed Drug interactions (Rx, OTC, herbal) and importance of notifying the doctor with any changes Do not take or discontinue any medication or over the counter medication except on the advice of the physician or pharmacist Signs/symptoms of bleeding and what to do if they occur Precautionary measures to decrease trauma/bleeding Signs/symptoms of thrombosis and what to do if they occur Need to limit or avoid alcohol consumption Carrying identification Importance of notifying healthcare provider when hospitalizations occur and when another healthcare provider has asked them to stop/hold anticoagulation medication before any procedure Importance of notifying all healthcare providers they are taking an anticoagulant Use of control measures, if applicable The importance of taking anticoagulation medication as instructed and the potential ramifications of non-compliance were explained to the patient The patient was provided supplemental material which includes the following topics: compliance Issues, follow-up with physician, follow-up monitoring, potential adverse drug reactions, and interactions. Quentin Buck, [facility] Normal [facility] Comprehensive metabolic 2000 panelon 10-25-2023 Albumin [Mass/Vol] 4.0 g/dL Normal 3.9-4.9 [facility] Comment on above: Order Comment: Allan phelps Type: BLOOD SPECIMENOrdering Facility: [facility] Address: [address] [place] [address] Performed By: #### 3 3762-6, 24448-4 ####[facility] LABCLIA [id number] [place] [address] [place] ALP [Catalytic activity/Vol] 104 U/L Normal 34-123 [facility] Comment on above: Order Comment: Allan phelps Type: BLOOD SPECIMENOrdering Facility: [facility] Address: [address] [place] [address] Performed By: #### 3 3762-6, 18177-9 ####[facility] LABCLIA [id number] [place] [address] [place] ALT [Catalytic activity/Vol] 17 U/L Normal 7-38 [facility] Comment on above: Order Comment: Speci men Type: BLOOD SPECIMENOrdering Facility: [facility] Address: [facility] [place] [address] Performed By: #### 3 3762-6, ####[facility] LABCLIA [id number] [place] [address] [place] Anion gap [Moles/Vol] 11 mmol/L Normal 8-15 [facility] Comment on above: Order Comment: Speci men Type: BLOOD SPECIMENOrdering Facility: [facility] Address: [address] [place] [address] Performed By: #### 3 3762-6, ####[facility] LABCLIA [id number] [place] [address] [place] AST [Catalytic activity/Vol] 16 U/L Normal 13-35 [facility] Comment on above: Order Comment: Speci men Type: BLOOD SPECIMENOrdering Facility: [facility] Address: [address] [place] [address] Performed By: #### 3 3762-6, ####[facility] LABCLIA [id number] [place] [address] [place] Bilirubin [Mass/Vol] 0.8 mg/dL Normal 0.2-1.3 [facility] Comment on above: Order Comment: Speci men Type: BLOOD SPECIMENOrdering Facility: [facility] Address: [address] [place] [address] Performed By: #### 3 3762-6, ####[facility] LABCLIA [id number] [place] [address] [place] Calcium [Mass/Vol] 9.2 mg/dL Normal 8.5-10.2 [facility] Comment on above: Order Comment: Speci men Type: BLOOD SPECIMENOrdering Facility: [facility] Address: [address] [place] [address] Performed By: #### 3 3762-6, 63511-6 ####[facility] LABCLIA [id number] [place] [address] [place] Chloride [Moles/Vol] 103 mmol/L Normal 98-107 [facility] Comment on above: Order Comment: Speci men Type: BLOOD SPECIMENOrdering Facility: [facility] Address: [address] [place] [address] Performed By: #### 3 3762-6, 18401-9 ####[facility] [id number] [place] [address] [place] CO2 [Moles/Vol] 26 mmol/L Normal 22-30 [facility] Comment on above: Order Comment: Speci men Type: BLOOD SPECIMENOrdering Facility: [facility] Address: [address] [place] [address] Performed By: #### 3 3762-6, 39858-6 ####[facility] [id number] [place] [address] [place] [facility] Creatinine [Mass/Vol] 0.90 mg/dL Normal 0.58-0.96 [facility] Comment on above: Order Comment: Speci men Type: BLOOD SPECIMENOrdering Facility: [facility] Address: [address] [place] [address] Performed By: #### 3 3762-6, 64327-7 ####[facility] [id number] [place] [address] [facility] Creatinine and Glomerular filtration rate.predicted panel (S/P/Bld) 71 mL/min/1.73m??? Normal >=60 [facility] Comment on above: Order Comment: Speci men Type: BLOOD SPECIMENOrdering Facility: [facility] Address: [address] [place] [address] Result Comment: Shira mated Glomerular Filtration Rate (eGFR) is calculated using the 2020 CKD-EPI creatinine equation. This equation utilizes serum creatinine, sex, and age as parameters. The creatinine assay has traceable calibration to isotope dilution-mass spectrometry. Refer to KDIGO guidelines for clinical interpretation. In patients with unstable renal function, e.g. those with acute kidney injury, the eGFR may not accurately reflect actual GFR. Performed By: #### 3 3762-6, 11349-6 ####[facility] LABIA [id number] [place] [address] [place] Glucose [Mass/Vol] 99 mg/dL Normal 74-99 [facility] Comment on above: Order Comment: Allan phelps Type: BLOOD SPECIMENOrdering Facility: [facility] Address: [address] [place] [address] Result Comment: The [place] Diabetes Association (ADA) provides guidance for cutoff values for fasting glucose and random glucose. The ADA defines fasting as no caloric intake for at least 8 hours. Fasting plasma glucose results between 100 to 125 mg/dL indicate increased risk for diabetes (prediabetes). Fasting plasma glucose results greater than or equal to 126 mg/dL meet the criteria for diagnosis of diabetes. In the absence of unequivocal hyperglycemia, results should be confirmed by repeat testing. In a patient with classic symptoms of hyperglycemia or hyperglycemic crisis, random plasma glucose results greater than or equal to 200 mg/dL meet the criteria for diagnosis of diabetes. Reference: Standards of Medical Care in Diabetes 2016, [place] Diabetes Association. Diabetes Care. 2016.39(Suppl 1). Performed By: #### 3 3762-6, 71256-8 ####[facility] LABIA [id number] [place] [address] [place] Potassium [Moles/Vol] 4.0 mmol/L Normal 3.7-5.1 [facility] Comment on above: Order Comment: Allan phelps Type: BLOOD SPECIMENOrdering Facility: [facility] Address: [address] [place] [address] Performed By: #### 3 3762-6, 20021-7 ####[facility] LABIA [id number] [place] [address] [place] Protein [Mass/Vol] 6.9 g/dL Normal 6.3-8.0 [facility] Comment on above: Order Comment: Allan phelps Type: BLOOD SPECIMENOrdering Facility: [facility] Address: [address] [place] [address] Performed By: #### 3 3762-6, 40509-0 ####[facility] LABCLIA [id number] [place] [address] [place] Sodium [Moles/Vol] 140 mmol/L Normal 136-144 [facility] Comment on above: Order Comment: Speci men Type: BLOOD SPECIMENOrdering Facility: [facility] Address: [address] [place] [address] Performed By: #### 3 3762-6, 13738-0 ####[facility] [id number] [place] [address] [place] [facility] Urea nitrogen [Mass/Vol] 17 mg/dL Normal 7-21 [facility] Comment on above: Order Comment: Speci men Type: BLOOD SPECIMENOrdering Facility: [facility] Address: [address] [place] [address] Performed By: #### 3 3762-6, 86921-8 ####[facility] [id number] [place] [address] [facility] NT-proBNP [facility] 10-24 Natriuretic peptide.B prohormone N-Terminal [Mass/Vol] 970 pg/mL High <125 [facility] Comment on above: Order Comment: Speci men Type: BLOOD SPECIMENOrdering Facility: [facility] Address: [address] [place] [address] Performed By: #### 3 3762-6, 59776-9 ####[facility] [id number] [place] [address] [facility] ALLIED HEALTHon 10-24-2023 ALLIED HEALTH HNO ID: [id number] Author: MADHAVI VO RT(R) Service: Nuclear Radiology Author Type: Technologist Type: Allied Health Filed: 10/24/2023 13:13 Note Text: RADIOLOGY SERVICE PROGRESS NOTE SERVICE DATE: 10/24/2023 SERVICE TIME: 1:12 PM PATIENT IDENTITY VERIFICATION COMPLETED USING TWO (2) STANDARD IDENTIFIERS: Name and Date of confirmed by patient verbally and Name and Date of confirmed by identification band FALL SCREENING: Has the patient had 2 falls in the last year or 1 fall with injury or currently using an Ambulatory Assistive Device (Walker, Cane, Wheelchair, Crutches, etc.)? Inpatient: Screened on floor PATIENT GENDER DATA: .female : No ALLERGIES: Reviewed and unchanged MEDICATIONS REVIEWED: No PATIENT RELEVANT IMPLANT DATA REVIEWED: Not Applicable PATIENT PRESENTS WITH AN IMPLANTABLE OR ATTACHED CONCRETE PIPE MAKER: No CREATININE: Creatinine Date Value Ref Range Status 10/24/2023 0.78 0.58 - 0.96 mg/dL Final 10/23/2023 0.89 0.58 - 0.96 mg/dL Final 12/15/2018 0.68 0.50 - 0.90 mg/dL Final Estimated Glomerular Filtration Rate Date Value Ref Range Status 10/24/2023 84 >=60 mL/min/1.73m? Final Comment: Estimated Glomerular Filtration Rate (eGFR) is calculated using the 2020 CKD-EPI creatinine equation. This equation utilizes serum creatinine, sex, and age as parameters. The creatinine assay has traceable calibration to isotope dilution-mass spectrometry. Refer to KDIGO guidelines for clinical interpretation. In patients with unstable renal function, e.g. those with acute kidney injury, the eGFR may not accurately reflect actual GFR. eGFR- Date Value Ref Range Status 12/15/2018 > 60 ml/min/1.73m2 Final Comment: eGFR >= 60 Indicates normal kidney function. * eGFR IS AN ESTIMATE * (AFR JAYDEN = ) (non-AFR AM = NON-) MDRD calculation used in the eGFR should not be used to dose medications. For further limitations of the eGFR please refer to the Physician Website or the National Kidney Disease Education Program website (www.nkdep.nih.gov). P.O.C.T. RESULTS: N/A October 24, [address] PERFORMED: No IV SITE: Inpatient - refer to LDA documentation POST EXAM PIV STATUS: Inpatient see LDA documentation PROCEDURE TYPE: NM Stress: 14.1 mCi [id number] was administered IV for Rest Imaging at 1010 by ns. 34 mCi [id number] was administered IV for Stress Imaging at 1200 by wm. ADMINISTRATION TIME: 1010/1200 PATIENT DISCHARGED TO: Patient taken to IP transport area for return to RNF/ICU/ED. A Diagnostic radioactive procedure has taken place, with no further precautions necessary other than routine body substance precautions. More information regarding radiation safety can be found using this link: [email or web address]/Rad% 20Protection%20-% 20Diagnostic%20Nuclea r%20Medicine%20Proced ures.pdf SIGNATURE: RT Leah(R) PATIENT NAME: Monie Serrano DATE: October 24, 2023 TIME: 1:12 PM PAGER/CONTACT #: Normal [facility] CBC panel Auto (Bld)on 10-23 Erythrocyte distribution width (RBC) [Ratio] 13.0 % Normal 11.5-15.0 [facility] Comment on above: Order Comment: Speci men Type: BLOOD SPECIMENOrdering Facility: [facility] Address: [address] [place] [address] Performed By: #### 5 8410-2 ####[facility] [id number] [place] [address] [place] Hematocrit (Bld) [Volume fraction] 36.3 % Normal 36.0-46.0 [facility] Comment on above: Order Comment: Speci men Type: BLOOD SPECIMENOrdering Facility: [facility] Address: [address] [place] [address] Performed By: #### 5 8410-2 ####[facility] [id number] [place] [address] [place] Hemoglobin (Bld) [Mass/Vol] 12.1 g/dL Normal 11.5-15.5 [facility] Comment on above: Order Comment: Speci men Type: BLOOD SPECIMENOrdering Facility: [facility] Address: [address] [place] [address] Performed By: #### 5 8410-2 ####[facility] [id number] [place] [address] [place] MCH (RBC) [Entitic mass] 32.5 pg Normal 26.0-34.0 [facility] Comment on above: Order Comment: Speci men Type: BLOOD SPECIMENOrdering Facility: [facility] Address: [address] [place] [address] Performed By: #### 5 8410-2 ####[facility] LABIA [id number] [place] [address] [place] MCHC (RBC) [Mass/Vol] 33.3 g/dL Normal 30.5-36.0 [facility] Comment on above: Order Comment: Speci men Type: BLOOD SPECIMENOrdering Facility: [facility] Address: [address] [place] [address] Performed By: #### 5 8410-2 ####[facility] [id number] [address] [place] MCV (RBC) [Entitic vol] 97.6 fL Normal 80.0-100.0 [facility] Comment on above: Order Comment: Speci men Type: BLOOD SPECIMENOrdering Facility: [facility] Address: [address] [place] [address] Performed By: #### 5 8410-2 ####[facility] LABIA [id number] [address] [place] Nucleated RBC (Bld) [#/Vol] 10*3/uL Normal <0.01 [facility] Comment on above: Order Comment: Speci men Type: BLOOD SPECIMENOrdering Facility: [facility] Address: [address] [place] [address] Performed By: #### 5 8410-2 ####[facility] LABIA [id number] [place] [address] [place] Platelet mean volume (Bld) [Entitic vol] 9.1 fL Normal 9.0-12.7 [facility] Comment on above: Order Comment: Speci men Type: BLOOD SPECIMENOrdering Facility: [facility] Address: [address] [place] [address] Performed By: #### 5 8410-2 ####[facility] LABIA [id number] [place] [address] [facility] Platelets (Bld) [#/Vol] 266 10*3/uL Normal 150-400 [facility] Comment on above: Order Comment: Speci men Type: BLOOD SPECIMENOrdering Facility: [facility] Address: [address] [place] [address] Performed By: #### 5 8410-2 ####[facility] [id number] [place] [address] [facility] RBC (Bld) [#/Vol] 3.72 10*6/uL Low 3.90-5.20 [facility] Comment on above: Order Comment: Speci men Type: BLOOD SPECIMENOrdering Facility: [facility] Address: [address] [place] [address] Performed By: #### 5 8410-2 ####[facility] [id number] [place] [address] [facility] WBC (Bld) [#/Vol] 5.87 10*3/uL Normal 3.70-11.00 [facility] Comment on above: Order Comment: Speci men Type: BLOOD SPECIMENOrdering Facility: [facility] Address: [address] [place] [address] Performed By: #### 5 8410-2 ####[facility] [id number] [place] [address] [facility] CONSULTon 10-24-2023 CONSULT HNO ID: [id number] Author: JENNIFER KIDD MD Service: Cardiovascular Disease Author Type: Physician Type: Consults Filed: 10/24/2023 11:44 Note Text: CONSULT: CARDIOLOGY SERVICE SERVICE DATE: 10/24/2023 SERVICE TIME: 11:24 AM CONSULTING PHYSICIAN: Jennifer Kidd PCP: Josiah Donovan MD, MD ATTENDING: Tegan Delvalle MD REASON FOR CONSULT: Arrhythmias Subjective CHIEF COMPLAINT: New onset atrial fibrillation (HCC) [I48.91] HISTORY OF PRESENT ILLNESS: Ms. Serrano is a 67 year old female who presents for worsening SOB and evaluation of newly documented atrial fibrillation. Patient noted more SOB and chest congestion for past 1-2 weeks that patient initially felt was seasonal allergies settling in chest. Patient put on Apple watch on 10/21/2023 and was alerted to possible atrial fibrillation that was confirmed by PCP appointment 10/23/[address] showing CHF. No previous EKG. Last in hospital 1999 with cholecystectomy. Has [place] 1/4 mile. No lightheadedness, dizziness or palpitations or syncope. No CP. PAST MEDICAL HISTORY No date: NEGATIVE MEDICAL HISTORY No date: Pernicious anemia Comment: Takes vitamin B12 shots monthly No date: Vitamin D deficiency PAST SURGICAL HISTORY No date: ANKLE SURGERY HX Comment: Right Achilles tendon surgery 2017 No date: LAPAROSCOPIC CHOLEYCYSTECTOMY Comment: Cholecystectomy, lap FAMILY HISTORY Problem Relation Age of Onset Stroke Mother 70 other (pernicious anemia) Mother Cancer Father colon other (Multiple sclerosis) Father other (1 daughter with hemochromatosis, 1 son with Graves' disease, 1 daughter with rheumatoid arthritis, 1 son with asthma (all separate children)) Other other (pernicious anemia) Maternal Grandmother No Known Problems Maternal Grandfather No Known Problems Paternal Grandmother No Known Problems Paternal Grandfather No Known Problems Paternal Aunt No Known Problems Paternal Aunt No Known Problems Paternal Uncle No Known Problems Paternal Uncle No Known Problems Paternal Uncle Rheumatologic disease Daughter other (hyperthyroid) Son Social History Tobacco Use Smoking status: Never Smokeless tobacco: Never Substance Use Topics Alcohol use: Yes Comment: occ, once per year or less Drug use: No Prior to Admission Medications Prescriptions Last Dose Informant Patient Reported? Taking? CALCIUM ORAL 10/23/2023 at 0900 Yes Yes Sig: Take by mouth twice daily. cholecalciferol, vitamin D3, (VITAMIN D3 ORAL) 10/23/2023 at 0900 Yes Yes Sig: Take by mouth twice daily. cyanocobalamin 1,000 mcg/mL Yes No Sig: once every month. magnesium oxide 400 mg magnesium cap 10/22/2023 at 2100 Yes Yes Sig: Take 400 mg by mouth once daily. Facility-Administered Medications: None Current Facility-Administered Medications Medication Dose Route Frequency NaCl 0.9% iv flush bag 20 mL INTRAVENOUS PRN aluminum-magnesium hydroxide-simethicone 200-200-20 mg/5 mL 30 mL 30 mL ORAL DAILY PRN acetaminophen 650 mg tab(s) (TYLENOL) 650 mg ORAL q 6 H PRN NaCl 0.9% iv infusion 75 mL/hr INTRAVENOUS CONTINUOUS ondansetron 4 mg tab(s) (ZOFRAN) 4 mg ORAL q 6 H PRN Or ondansetron (PF) 4 mg injection (ZOFRAN) 4 mg INTRAVENOUS q 6 H PRN polyethylene glycol 3350 17 g packet 17 g ORAL DAILY melatonin 1 mg tab(s) 1 mg ORAL DAILY (8 PM) heparin 5,000 Units injection 5,000 Units SUBCUTANEOUS q 12 H sodium chloride 0.9 % (flush) 2-10 mL (BD POSIFLUSH) 2-10 mL INTRAVENOUS DIRECTED PRN And perflutren lipid microspheres 1.1 mg/mL 1.3 mL injection (DEFINITY) 1.3 mL INTRAVENOUS DIRECTED PRN dilTIAZem 100 mg in D5W 100 mL Vial-Bag (CARDIZEM) 5 mg/hr INTRAVENOUS CONTINUOUS iv contrast (radiology procedure) INTRAVENOUS DIRECTED PRN pantoprazole 40 mg injection (PROTONIX) 40 mg INTRAVENOUS DAILY (6 AM) furosemide 20 mg injection (LASIX) 20 mg INTRAVENOUS BID 9a/5p metoprolol succinate ER 100 mg tab(s) (TOPROL XL) 100 mg ORAL DAILY spironolactone 25 mg tab(s) (ALDACTONE) 25 mg ORAL DAILY ALLERGIES No Known Allergies CARDIAC STATUS: Chest Pain: Denies Dyspnea: NYHA Class II Ankle Edema: Negative Arrhythmia: Negative, Patient denies palpitations, lightheadedness, dizziness, syncope or near syncope. Functional Capacity: Average Activity includes Light activity REVIEW OF SYSTEMS: The following systems were reviewed with the patient, and are unremarkable other than as described below. SYSTEMIC: No fever, chills, or change in weight or appetite HEENT: No recent change in vision or hearing. CARDIOVASCULAR: No murmur, gallop. Denies chest pain or palpitations. GI: No recent nausea, vomiting or diarrhea. : No recent hematuria or dysuria. SKIN: No recent itching or eruption. PSYCH: No recent active anxiety or depression. HEMATOLOGY/ONCOLOGY: No recent diagnosis of bleeding or cancer. ENDOCRINE: No recent polyuria or heat intolerance. NEURO: No recent TIA, stroke or seizures. RHEUMATOLOGY (more content not included)... Normal [facility] Comprehensive metabolic 2000 panelon 10-24-2023 Albumin [Mass/Vol] 3.8 g/dL Low 3.9-4.9 [facility] Comment on above: Order Comment: Speci men Type: BLOOD SPECIMENOrdering Facility: [facility] Address: [address] [place] [address] Performed By: #### 2 4323-8 ####[facility] LABCLIA [id number] [place] [address] [place] ALP [Catalytic activity/Vol] 93 U/L Normal 34-123 [facility] Comment on above: Order Comment: Speci men Type: BLOOD SPECIMENOrdering Facility: [facility] Address: [address] [place] [address] Performed By: #### 2 4323-8 ####[facility] LABIA [id number] [place] [address] [place] ALT [Catalytic activity/Vol] 14 U/L Normal 7-38 [facility] Comment on above: Order Comment: Speci men Type: BLOOD SPECIMENOrdering Facility: [facility] Address: [address] [place] [address] Performed By: #### 2 4323-8 ####[facility] LABCLIA [id number] [place] [address] [place] Anion gap [Moles/Vol] 10 mmol/L Normal 8-15 [facility] Comment on above: Order Comment: Speci men Type: BLOOD SPECIMENOrdering Facility: [facility] Address: [address] [place] [address] Performed By: #### 2 4323-8 ####[facility] LABCLIA [id number] [place] [address] [place] AST [Catalytic activity/Vol] 19 U/L Normal 13-35 [facility] Comment on above: Order Comment: Speci men Type: BLOOD SPECIMENOrdering Facility: [facility] Address: [address] [place] [address] Performed By: #### 2 4323-8 ####[facility] LABCLIA [id number] [place] [address] [place] Bilirubin [Mass/Vol] 0.7 mg/dL Normal 0.2-1.3 [facility] Comment on above: Order Comment: Speci men Type: BLOOD SPECIMENOrdering Facility: [facility] Address: [address] [place] [address] Performed By: #### 2 4323-8 ####[facility] LABIA [id number] [place] [address] [place] Calcium [Mass/Vol] 9.1 mg/dL Normal 8.5-10.2 [facility] Comment on above: Order Comment: Speci men Type: BLOOD SPECIMENOrdering Facility: [facility] Address: [address] [place] [address] Performed By: #### 2 4323-8 ####[facility] [id number] [place] [address] [place] Chloride [Moles/Vol] 107 mmol/L Normal 98-107 [facility] Comment on above: Order Comment: Speci men Type: BLOOD SPECIMENOrdering Facility: [facility] Address: [address] [place] [address] Performed By: #### 2 4323-8 ####[facility] [id number] [place] [address] [place] CO2 [Moles/Vol] 24 mmol/L Normal 22-30 [facility] Comment on above: Order Comment: Speci men Type: BLOOD SPECIMENOrdering Facility: [facility] Address: [address] [place] [address] Performed By: #### 2 4323-8 ####[facility] [id number] [place] [address] [place] Creatinine [Mass/Vol] 0.78 mg/dL Normal 0.58-0.96 [facility] Comment on above: Order Comment: Speci men Type: BLOOD SPECIMENOrdering Facility: [facility] Address: [address] [place] [address] Performed By: #### 2 4323-8 ####[facility] LABIA [id number] [place] [address] [place] Creatinine and Glomerular filtration rate.predicted panel (S/P/Bld) 84 mL/min/1.73m??? Normal >=60 [facility] Comment on above: Order Comment: Allan phelps Type: BLOOD SPECIMENOrdering Facility: [facility] Address: [address] [place] [address] Result Comment: Shira mated Glomerular Filtration Rate (eGFR) is calculated using the 2020 CKD-EPI creatinine equation. This equation utilizes serum creatinine, sex, and age as parameters. The creatinine assay has traceable calibration to isotope dilution-mass spectrometry. Refer to KDIGO guidelines for clinical interpretation. In patients with unstable renal function, e.g. those with acute kidney injury, the eGFR may not accurately reflect actual GFR. Performed By: #### 2 4323-8 ####[facility] LABCLIA [id number] [place] [address] [place] Glucose [Mass/Vol] 102 mg/dL High 74-99 [facility] Comment on above: Order Comment: Allan phelps Type: BLOOD SPECIMENOrdering Facility: [facility] Address: [address] [place] [address] Result Comment: The [place] Diabetes [employer] (ADA) provides guidance for cutoff values for fasting glucose and random glucose. The ADA defines fasting as no caloric intake for at least 8 hours. Fasting plasma glucose results between 100 to 125 mg/dL indicate increased risk for diabetes (prediabetes). Fasting plasma glucose results greater than or equal to 126 mg/dL meet the criteria for diagnosis of diabetes. In the absence of unequivocal hyperglycemia, results should be confirmed by repeat testing. In a patient with classic symptoms of hyperglycemia or hyperglycemic crisis, random plasma glucose results greater than or equal to 200 mg/dL meet the criteria for diagnosis of diabetes. Reference: Standards of Medical Care in Diabetes 2016, [place] [employer]. Diabetes Care. 2016.39(Suppl 1). Performed By: #### 2 4323-8 ####[facility] LABCLIA [id number] [place] [address] [place] Potassium [Moles/Vol] 4.0 mmol/L Normal 3.7-5.1 [facility] Comment on above: Order Comment: Speci men Type: BLOOD SPECIMENOrdering Facility: [facility] Address: [address] [place] [address] Performed By: #### 2 4323-8 ####[facility] LABIA [id number] [place] [address] [place] [facility] [facility] Protein [Mass/Vol] 6.5 g/dL Normal 6.3-8.0 [facility] Comment on above: Order Comment: Speci men Type: BLOOD SPECIMENOrdering Facility: [facility] Address: [address] [place] [address] Performed By: #### 2 4323-8 ####[facility] LABIA [id number] [place] [address] [place] Sodium [Moles/Vol] 141 mmol/L Normal 136-144 [facility] Comment on above: Order Comment: Speci men Type: BLOOD SPECIMENOrdering Facility: [facility] Address: [address] [place] [address] Performed By: #### 2 4323-8 ####[facility] LABCLIA [id number] [place] [address] [place] Urea nitrogen [Mass/Vol] 16 mg/dL Normal 7-21 [facility] Comment on above: Order Comment: Speci men Type: BLOOD SPECIMENOrdering Facility: [facility] Address: [address] [place] [address] Performed By: #### 2 4323-8 ####[facility] LABIA [id number] [place] [address] [place] ECHOon 10-24-2023 Echocardiography Echocardiography Report: Transthoracic Echo [facility] Date of service: 10/24/2023 7:56:00 AM Ordering physician: SALVADOR PORTILLO Indication: Sustained atrial fibrillation Technologist: Sarah Lew RD, RVT Interpreting physician: Jennifer Kidd MD PATIENT: Name: MONIE SERRANO : 1955 Age: 67 years Gender: F Primary rhythm: atrial fib. Height: 167.60 cm BSA: 2.05 m Weight: 90.30 kg BMI: 32.1 kg/m Heart rate 96 bpm Blood pressure 99/65 mmHg Color Doppler was utilized to interrogate the cardiac valves assessed and spectral Doppler was utilized to determine the flow velocities and pressure gradients reported in this exam. MEASUREMENTS: Value Indexed Normal Max aortic dimension 2.6 cm Ao < 3.8 Left atrial volume 79 ml (biplane A-L) 39 ml/m Mary <= 34 LV ID (diastole) 4.8 cm (2D) 2.33 cm/m LV ID (systole) 4.0 cm (2D) 1.95 cm/m IVS, leaflet tips 0.7 cm (2D) Posterior wall thickness 0.8 cm (2D) Left ventricular mass 115 g (2D) 56 g/m LV stroke volume 41 ml (2D 4-ch.) LVOT stroke volume 42 ml 21 ml/m LV end diastolic volume 82 ml (2D 4-ch.) 40.2 ml/m 29<=EDVi<62 LV end systolic volume 41 ml (2D 4-ch.) 20.1 ml/m Ejection Fraction 50 % (2D 4-ch.) EF > 54 FINDINGS: LEFT VENTRICLE The left ventricle is normal in size. Left ventricular systolic function is mildly decreased. Left ventricular diastolic function was not evaluated due to an arrhythmia. Wall Motion: The entire anterior wall, entire lateral wall, entire septum, entire apex, and entire inferior wall are mildly hypokinetic. RIGHT VENTRICLE The right ventricle is normal in size. Right ventricular systolic function is mildly decreased. RV systolic tissue Doppler velocity is 8.0 cm/s. Estimated right ventricular systolic pressure is 42 mmHg consistent with mild pulmonary hypertension. Estimated right atrial pressure is 8 mmHg based on IVC assessment. LEFT ATRIUM The left atrial cavity is moderately dilated. RIGHT ATRIUM The right atrial cavity is moderately dilated. Inferior Vena Cava: The inferior vena cava appears normal measuring 1.9 cm. The vessel decreases less than 50 percent with inspiration. MITRAL VALVE There is mild (1+ - 2+) mitral valve regurgitation. There is calcification. TRICUSPID VALVE The tricuspid valve leaflets are structurally normal. There is mild (1+ - 2+) tricuspid valve regurgitation. AORTIC VALVE The aortic valve cusps are structurally normal. There is no aortic valve regurgitation. Tricuspid aortic valve. There is mild thickening. The peak gradient is 7 mmHg (peak velocity = 129.8 cm/s). The mean gradient is 5 mmHg. The LVOT mean velocity is 67.9 cm/s. The LVOT diameter is 1.8 cm. The aortic VTI is 22.2 cm. The mean velocity in the aortic valve is 104.2 cm/s. The dimensionless valve index is 0.74. AV area is 1.90 cm (0.93 cm /m ) by continuity, VTI. The LVOT stroke volume index is 21 ml/m . PULMONIC VALVE The pulmonic valve cusps are structurally normal. There is trace pulmonic valve regurgitation. The peak gradient is 2 mmHg. The mean gradient is 1 mmHg. The mean velocity in the pulmonic valve is 54.4 cm/s. AORTA The visualized aorta is normal in size. Measurements - Mid arch 2.6 cm. PULMONARY ARTERIES The pulmonary arteries are normal. INTERATRIAL SEPTUM There is no evidence of intracardiac shunting as detected by Doppler. INTERVENTRICULAR SEPTUM There is no flow through the interventricular septum as detected by Doppler. PERICARDIUM There is no pericardial effusion. There is an epicardial fat pad. CONCLUSIONS: - Exam indication: Sustained atrial fibrillation - The left ventricle is normal in size. Left ventricular systolic function is mildly decreased. EF = 50 5% (2D 4-ch.) - The right ventricle is normal in size. Right ventricular systolic function is mildly decreased. - The left atrial cavity is moderately dilated. - The right atrial cavity is moderately dilated. - Mild to moderate MR. - Moderate TR. - Mild aortic vallve thickening. Trivial AI. - The patient has not had a prior CC echocardiographic exam for comparison. * * * Final * * * CC [employer] Medical Image : [id number] amicsSISUID [facility] HbA1c (Bld)on 10-24-2023 Average glucose Estimated from glycated hemoglobin (Bld) [Mass/Vol] 123 mg/dL [facility] Comment on above: Order Comment: Speci men Type: BLOOD SPECIMENOrdering Facility: [facility] Address: [address] [place] [address] Result Comment: eAG: (Estimated average glucose) is a calculated value from HgbA1c and is loss control representative of the average blood glucose level in the last 2-3 month period. Performed By: #### 5 5454-3 ####[facility] LABCLIA [id number] [place] [address] [facility] HbA1c (Bld) [Mass fraction] 5.9 % Normal 4.3-6.1 [facility] Comment on above: Order Comment: Speci men Type: BLOOD SPECIMENOrdering Facility: [facility] Address: [address] [place] [address] Result Comment: [place]ros[place] Diabetes Association guidelines indicate that patients with HgbA1c in the range 5.7-6.4% are at increased risk for development of diabetes, and intervention by lifestyle modification may be beneficial. HgbA1c greater or equal to 6.5% is considered diagnostic of diabetes. Performed By: #### 5 5454-3 ####[facility] LABIA [id number] [place] [address] [facility] NM CARDIAC PERF STRESS/PHARM on 10-24-2023 NM CARDIAC PERF STRESS/PHARM * * *Final Report* * * DATE OF EXAM: Oct 24 2023 1:11PM UDN 0006 - NM CARDIAC PERF STRESS/PHARM / PROCEDURE REASON: Atrial fibrillation/flutter (AF) * * * * Physician Interpretation * * * * PATIENT: Name: MRS. MONIE SERRANO Age: 67 years Gender: F CONCLUSIONS: 1. SPECT Perfusion Study: Normal. 2. There is no scintigraphic evidence for inducible ischemia. 3. No evidence of scarred myocardium. 4. Left ventricle is normal in size. The left ventricle systolic function is normal. 5. Right ventricle is normal in size. The right ventricle systolic function is normal. 6. This is a low risk scan. Gated Stress FBP LVEF % 57 Prior Study Comparison No prior nuclear cardiology exam available for comparison. Nuclear Med Report:1-Day Gated SPECT Myocardial Perfusion with Regadenoson Stress: Myocardial perfusion imaging was performed at rest 30 minutes following the IV injection of the radiotracer. The patient received 0.4 mg of regadenoson, via rapid IV push, immediately followed by radiotracer IV. Gated post stress tomographic imaging was performed 30 to 60 minutes later. See administered radiotracer and doses below. [facility] Date of service: 10/24/2023 11:13:31 AM Ordering Physician: SALVADOR PORTILLO. Requesting Physician: Indication: Assessment for suspected CAD and CP - ECG uniterpretable OR unable to exercise Interpreting physician: Rudy Nassar MD Height: 167.64 cm BSA: 2.05 m? Weight: 90.27 kg BMI: 32.1 kg/m? Imaging Protocol Limitation Reason Breast attenuation. Exam Type: Rest Stress Radiopharm: Tc-99m Tetrofosmin Tc-99m Tetrofosmin Dosage(mCi): 14.1 34 Stress Agent: Regadenoson 0.4mg Supply provided from [facility] Resting Blood Press: 106/71 mmHg Image Quality The overall study imaging quality was deemed to be good. The following technical issues were noted: Breast attenuation. FINDINGS: Left Ventricle Wall Motion: Stress IR:3D - All segments are normal. Rest IR:3D - Gated Stress FBP - Reversibility - Stress IR:3D Stress IR:3D Gated Stress FBP LVEF: 57 % ED Volume: 102 ml ES Volume: 44 ml TID: 1.06 Perfusion Findings Stress IR:3D - Summed Score=0 All segments demonstrate normal perfusion. Rest IR:3D - Summed Score=0 All segments demonstrate normal perfusion. Stress IR:3D Rest IR:3D Summed Score=0 Summed Score=0 LEFT VENTRICLE The left ventricle is normal in size. Left ventricular systolic function is normal. Right Ventricle The right ventricle is normal in size. Right ventricle systolic function is normal. Stress Test Findings: There is no scintigraphic evidence for inducible ischemia. There is no evidence of scarring. * * * Final * * * -------- Stress ECG Report: [facility] Date of service: 10/24/2023 11:13:31 AM Ordering physician: SALVADOR PORTILLO network operations specialist: Lindy Jiménez Interpreting physician: Jennifer Kidd MD Patient name: MRS. MONIE SERRANO Age: 67 years Gender: F Height: 167.64 cm BSA: 2.05 m? Weight: 90.27 kg BMI: 32.1 kg/m? Indication: Abnormal resting ECG and Palpitations Stress ECG Conclusion: Conclusion: Normal Comments: Uneventful Lexiscan infusion Nuclear images will be reported separately Stress ECG Summary: The patient's resting heart rate was 104 bpm and blood pressure was 106/71 mmHg. The patient received regadenoson 0.4 mg IVP over approximately 15 seconds followed immediately by injection of nuclear isotope. The test was terminated due to end of protocol. Other symptoms during the test included SOB. Medications: Last Used LASIX TOPROL XL ALDACTONE HEPARIN SQ CARDIZEM PROTONIX Symptoms at rest: No symptoms Pharamcologic Protocol: Regadenoson Stress Exercise Table: + +---+---+- --+ Time (min) HR SYS TE + +---+---+- --+ 1.0 125 + +---+---+- --+ 2.0 130 88 71 + +---+---+- --+ 3.0 129 + +---+---+- --+ 4.0 121 89 73 + +---+---+- --+ ++--+ HR ++--+ Recovery Table: + +---+---+- --+ Time (min) HR SYS TE + +---+---+- --+ 2.0 113 96 75 + +---+---+- --+ Stress Observations: Resting HR: 104 bpm Resting BP: 106 / 71 mmHg Stress Exercise Observations: Reason for test termination: end of protocol and Symptoms during test: Other symptoms during the test included SOB * * * Final * * * -------- Stress Lace Roller Report: [facility] Date of service: 10/24/2023 11:13:31 AM Supervising physician: Jennifer Kidd MD PATIENT: Name: MRS. MONIE SERRANO MRN (more content not included)... Normal [facility] NUTRITIONon 10-24-2023 NUTRITION HNO ID: [id number] Author: ARTURO CASILLAS RD Service: Nutrition Therapy Author Type: Registered Dietitian Type: Nutrition Filed: 10/24/2023 10:41 Note Text: NUTRITION THERAPY INITIAL ASSESSMENT SERVICE DATE: 10/24/2023 SERVICE TIME: 1040 Nutrition Assessment: Recommended Malnutrition Diagnosis: No Malnutrition Identified Nutrition Diagnosis: PES Statement: No diagnosis at this time Care Plan: Advance diet to Heart healthy diet, when able Monitor and Evaluation: Meet greater than 75% of estimated needs Discharge Recommendations: Diet Diet: Heart Healthy Diet HPI: Nutrition Consult from Salvador Portillo CNP. Patient has a new dx of afib. She reports a weight gain of ~10-15 lbs. She believes it is from fluid. Patient reports eating a low Na diet at home. No nutrition concerns at this time. Intake History: Nutrition Intake Prior to Admission: Greater than 75% estimated energy needs greater than or equal to 1 month Current Nutrition Intake: NPO Dosing Weight: 83.9 kg (185 lb) Dosing Weight Type: Dry weight (Possible dry weight) Estimated kilocalorie needs: 0134-5736 Calorie Calculation Method: 15-20 kcals/kg Estimated protein needs (grams): 84-101 Grams protein determined by: 1.0 - 1.2 g/kg Diet Orders (From admission, onward) Start Ordered 10/24/23 0000 DIET NPO START NOW 10/23/23 1743 Anthropometrics: Height: 167.6 cm (5' 6) Weight: 90.3 kg (199 lb 1.2 oz) Usual Weight: 90.3 kg (199 lb) 10/24/23 Usual Weight Obtained From: Chart Review Body mass index is 32.13 kg/m?. Weight change percentage over time: Gain of ~10-15 lbs due to fluid - per patient Weight Change: Weight gain Physical Exam: Subcutaneous fat loss: No fat loss Muscle loss: No muscle loss Potential micronutrient deficiency: No deficiency identified Edema/Ascites: Generalized, Lower extremities Lower Extremity: Mild 1+ GI Symptoms: None Functional Status: No Change Potential Signs of Inflammation: No identifiable sources MNT Billing: $ Initial Assessment: 1-15 minutes SIGNATURE: Arturo Casillas RD PATIENT NAME: Monie Serrano DATE: October 24, 2023 TIME: 10:40 AM [facility] THERAPY NTon 10-24-2023 THERAPY NT HNO ID: [id number] Author: KENAN CADET PT Service: Physical Therapy Author Type: Physical Therapist Type: Therapy (PT/OT/Speech/Resp) Filed: 10/24/2023 16:03 Note Text: PHYSICAL THERAPY MISSED VISIT SERVICE DATE: 10/24/2023 SERVICE TIME: 1601 ROOM: [place] [address] Patient not seen due to Clinical Appropriateness (RN reports patient has been up independently in room and throughout the unit without difficulty. No skilled need at this time.). SIGNATURE: Kenan Cadet PT PATIENT NAME: Monie Serrano DATE: October 24, 2023 TIME: 4:03 PM [facility] THERAPY NT HNO ID: [id number] Author: EDWIN ELLIS OT/L Service: ? Author Type: Occupational Therapist Type: Therapy (PT/OT/Speech/Resp) Filed: 10/24/2023 12:58 Note Text: OCCUPATIONAL THERAPY MISSED VISIT SERVICE DATE: 10/24/2023 SERVICE TIME: ROOM: [place] [address] Patient not seen due to stress test . SIGNATURE: Edwin Ellis OT/Staci PATIENT NAME: Monie Serrano DATE: October 24, 2023 TIME: 12:58 PM [facility] CBC W Auto Differential pane l (Bld)on 10-23-2023 Basophils (Bld) [#/Vol] 0.07 10*3/uL Normal <0.11 [facility] Comment on above: Order Comment: Speci men Type: BLOOD SPECIMENOrdering Facility: [facility] Address: [address] [place] [address] Performed By: #### 5 7021-8 ####[facility] LABCLIA [id number] [place] [address] [place] Basophils/100 WBC (Bld) 0.9 % Normal [facility] Comment on above: Order Comment: Speci men Type: BLOOD SPECIMENOrdering Facility: [facility] Address: [address] [place] [address] Performed By: #### 5 7021-8 ####[facility] LABIA [id number] [place] [address] [place] Differential cell count method Nom (Bld) Auto Normal [facility] Comment on above: Order Comment: Speci men Type: BLOOD SPECIMENOrdering Facility: [facility] Address: [address] [place] [address] Performed By: #### 5 7021-8 ####[facility] LABIA [id number] [place] [address] [place] Eosinophils (Bld) [#/Vol] 0.20 10*3/uL Normal <0.46 [facility] Comment on above: Order Comment: Speci men Type: BLOOD SPECIMENOrdering Facility: [facility] Address: [address] [place] [address] Performed By: #### 5 7021-8 ####[facility] LABIA [id number] [address] [place] Eosinophils/100 WBC (Bld) 2.7 % Normal [facility] Comment on above: Order Comment: Speci men Type: BLOOD SPECIMENOrdering Facility: [facility] Address: [address] [place] [address] Performed By: #### 5 7021-8 ####[facility] LABIA [id number] [place] [address] [place] Erythrocyte distribution width (RBC) [Ratio] 12.8 % Normal 11.5-15.0 [facility] Comment on above: Order Comment: Speci men Type: BLOOD SPECIMENOrdering Facility: [facility] Address: [address] [place] [address] Performed By: #### 5 7021-8 ####[facility] LABIA [id number] [place] [address] [place] Hematocrit (Bld) [Volume fraction] 39.5 % Normal 36.0-46.0 [facility] Comment on above: Order Comment: Speci men Type: BLOOD SPECIMENOrdering Facility: [facility] Address: [address] [place] [address] Performed By: #### 5 7021-8 ####[facility] LABIA [id number] [place] [address] [place] Hemoglobin (Bld) [Mass/Vol] 13.1 g/dL Normal 11.5-15.5 [facility] Comment on above: Order Comment: Speci men Type: BLOOD SPECIMENOrdering Facility: [facility] Address: [address] [place] [address] Performed By: #### 5 7021-8 ####[facility] LABIA [id number] [place] [address] [place] Immature granulocytes (Bld) [#/Vol] 10*3/uL Normal <0.10 [facility] Comment on above: Order Comment: Speci men Type: BLOOD SPECIMENOrdering Facility: [facility] Address: [address] [place] [address] Performed By: #### 5 7021-8 ####[facility] LABIA [id number] [place] [address] [place] Immature granulocytes/100 WBC (Bld) 0.3 % Normal [facility] Comment on above: Order Comment: Speci men Type: BLOOD SPECIMENOrdering Facility: [facility] Address: [address] [place] [address] Performed By: #### 5 7021-8 ####[facility] LABIA [id number] [place] [address] [place] Lymphocytes (Bld) [#/Vol] 2.79 10*3/uL Normal 1.00-4.00 [facility] Comment on above: Order Comment: Speci men Type: BLOOD SPECIMENOrdering Facility: [facility] Address: [address] [place] [address] Performed By: #### 5 7021-8 ####[facility] [id number] [address] [place] [facility] Lymphocytes/100 WBC (Bld) 37.6 % Normal [facility] Comment on above: Order Comment: Speci men Type: BLOOD SPECIMENOrdering Facility: [facility] Address: [address] [place] [address] Performed By: #### 5 7021-8 ####[facility] [id number] [place] MCH (RBC) [Entitic mass] 32.5 pg Normal 26.0-34.0 [facility] Comment on above: Order Comment: Speci men Type: BLOOD SPECIMENOrdering Facility: [facility] Address: [address] [place] [address] Performed By: #### 5 7021-8 ####[facility] [id number] [address] [place] [facility] MCHC (RBC) [Mass/Vol] 33.2 g/dL Normal 30.5-36.0 [facility] Comment on above: Order Comment: Speci men Type: BLOOD SPECIMENOrdering Facility: [facility] Address: [address] [place] [address] Performed By: #### 5 7021-8 ####[facility] [id number] [address] [place] [facility] MCV (RBC) [Entitic vol] 98.0 fL Normal 80.0-100.0 [facility] Comment on above: Order Comment: Speci men Type: BLOOD SPECIMENOrdering Facility: [facility] Address: [address] [place] [address] Performed By: #### 5 7021-8 ####[facility] [id number] [address] Monocytes (Bld) [#/Vol] 0.66 10*3/uL Normal <0.87 [facility] Comment on above: Order Comment: Speci men Type: BLOOD SPECIMENOrdering Facility: [facility] Address: [address] [place] [address] Performed By: #### 5 7021-8 ####[facility] LABIA [id number] [place] [address] [place] Monocytes/100 WBC (Bld) 8.9 % Normal [facility] Comment on above: Order Comment: Speci men Type: BLOOD SPECIMENOrdering Facility: [facility] Address: [address] [place] [address] Performed By: #### 5 7021-8 ####[facility] LABIA [id number] [place] [address] [place] Neutrophils (Bld) [#/Vol] 3.69 10*3/uL Normal 1.45-7.50 [facility] Comment on above: Order Comment: Speci men Type: BLOOD SPECIMENOrdering Facility: [facility] Address: [address] [place] [address] Performed By: #### 5 7021-8 ####[facility] LABIA [id number] [place] [address] [place] Neutrophils/100 WBC (Bld) 49.6 % Normal [facility] Comment on above: Order Comment: Speci men Type: BLOOD SPECIMENOrdering Facility: [facility] Address: [address] [place] [address] Performed By: #### 5 7021-8 ####[facility] LABIA [id number] [place] [address] [place] Nucleated RBC (Bld) [#/Vol] 10*3/uL Normal <0.01 [facility] Comment on above: Order Comment: Speci men Type: BLOOD SPECIMENOrdering Facility: [facility] Address: [address] [place] [address] Performed By: #### 5 7021-8 ####[facility] LABIA [id number] [place] [address] [place] Nucleated RBC/100 WBC (Bld) [Ratio] 0.0 /100 WBC Normal [facility] Comment on above: Order Comment: Speci men Type: BLOOD SPECIMENOrdering Facility: [facility] Address: [address] [place] [address] Performed By: #### 5 7021-8 ####[facility] LABIA [id number] [place] [address] [place] Platelet mean volume (Bld) [Entitic vol] 9.3 fL Normal 9.0-12.7 [facility] Comment on above: Order Comment: Speci men Type: BLOOD SPECIMENOrdering Facility: [facility] Address: [address] [place] [address] Performed By: #### 5 7021-8 ####[facility] LABIA [id number] [place] [address] [place] Platelets (Bld) [#/Vol] 318 10*3/uL Normal 150-400 [facility] Comment on above: Order Comment: Speci men Type: BLOOD SPECIMENOrdering Facility: [facility] Address: [address] [place] [address] Performed By: #### 5 7021-8 ####[facility] LABIA [id number] [place] [address] [place] RBC (Bld) [#/Vol] 4.03 10*6/uL Normal 3.90-5.20 [facility] Comment on above: Order Comment: Speci men Type: BLOOD SPECIMENOrdering Facility: [facility] Address: [address] [place] [address] Performed By: #### 5 7021-8 ####[facility] LABIA [id number] [place] [address] [place] WBC (Bld) [#/Vol] 7.43 10*3/uL Normal 3.70-11.00 [facility] Comment on above: Order Comment: Speci men Type: BLOOD SPECIMENOrdering Facility: [facility] Address: [address] [place] [address] Performed By: #### 5 7021-8 ####[facility] LABCLIA [id number] [place] [address] [facility] OF [place] CT CHEST W IVCON PEon 2023 CT CHEST W IVCON PE * * *Final Report* * * DATE OF EXAM: Oct 23 2023 9:07PM [facility] [place] CHEST W IVCON PE / PROCEDURE REASON: Pulmonary embolism (PE) suspected, positive D-dimer * * * * Physician Interpretation * * * * EXAMINATION: CHEST CT WITH CONTRAST (PULMONARY EMBOLISM PROTOCOL) CLINICAL HISTORY: Technique: Spiral CT acquisition of the chest from the thoracic inlet to the upper abdomen following IV contrast. Axial 1 and 3 mm thick slices plus coronal and sagittal reformatted images. MQ: CTCP_5 Contrast: 100 mL Omnipaque [address] Radiation dose: Integrated Dose-length product (DLP) for this visit = 192.0 mGy*cm CT Dose Reduction Employed: Automated exposure control (AEC) Comparison: No relevant prior studies available. RESULT: Limitations: None. Evaluation for thromboembolic disease: - Right heart chambers: No thromboembolic disease. - Main pulmonary arteries: No thromboembolic disease. - Lobar pulmonary arteries: No thromboembolic disease. - Segmental pulmonary arteries: No thromboembolic disease. - Subsegmental pulmonary arteries: No thromboembolic disease. - Additional pulmonary artery findings: The main pulmonary artery is normal in caliber. Lines, tubes, and devices: None. Lung parenchyma and airways: Bronchial wall thickening likely due to findings of chronic inflammation. There is a degree of mosaic attenuation of the lungs likely due to air trapping. There are likely some superimposed groundglass opacities bilaterally. Linear opacities at the left lung base compatible with subsegmental atelectasis. There are no endobronchial lesions. No pneumothorax. Pleural space: No pleural effusion. No pleural thickening. Lower neck, lymph nodes, and mediastinum: The imaged thyroid gland is normal. No lymphadenopathy in the supraclavicular, axillary, mediastinal, or hilar regions. Heart, pericardium, and thoracic vessels: The thoracic aorta is normal in caliber. Mild cardiomegaly. No coronary artery atherosclerotic calcifications are noted, although the study is not optimized for coronary assessment. No pericardial effusion or thickening. Bones and soft tissues: No destructive bone lesion. Chest wall is unremarkable. Upper abdomen: Reflux of contrast into the hepatic veins and IVC compatible with findings of right-sided heart failure. Localizer images: No additional findings. IMPRESSION: No CT evidence of pulmonary embolism. Mild cardiomegaly with findings of right-sided heart failure Degree of mosaic attenuation likely due to air trapping. There are likely superimposed groundglass opacities bilaterally. This may be due to superimposed infectious or inflammatory process. Alveolar pulmonary edema can also be considered. Circular Gang Saw Operator: PSCB Transcribe Date/Time: Oct 23 2023 9:15P Dictated by : DOC MEJIA MD This examination was interpreted and the report reviewed and electronically signed by: DOC MEJIA MD on Oct 23 2023 9:22PM EST [id number] N Normal [facility] Comprehensive metabolic 2000 panelon 10-23-2023 Albumin [Mass/Vol] 4.4 g/dL Normal 3.9-4.9 [facility] Comment on above: Order Comment: Speci men Type: BLOOD SPECIMENOrdering Facility: [facility] Address: [address] [place] [address] Performed By: #### 3 016-3, 82499-3, [id number], 45078-5, 62512-0 ####[facility] LABIA [id number] [place] [address] [place] [facility] ALP [Catalytic activity/Vol] 112 U/L Normal 34-123 [facility] Comment on above: Order Comment: Speci [facility] Type: BLOOD SPECIMENOrdering Facility: [facility] Address: [address] [place] [address] Performed By: #### 3 016-3, 94624-3, [id number], 73046-7, 76996-0 ####[facility] LABCLIA [id number] [place] [address] [place] [facility] ALT [Catalytic activity/Vol] 21 U/L Normal 7-38 [facility] Comment on above: Order Comment: Speci men Type: BLOOD SPECIMENOrdering Facility: [facility] Address: [address] [place] [address] Performed By: #### 3 016-3, 63753-8, [id number], 93613-9, 99407-1 ####[facility] LABCLIA [id number] [place] [address] [place] Anion gap [Moles/Vol] 9 mmol/L Normal 8-15 [facility] Comment on above: Order Comment: Speci men Type: BLOOD SPECIMENOrdering Facility: [facility] Address: [address] [place] [address] Performed By: #### 3 016-3, 96225-9, [id number], 64810-0, 05342-7 ####[facility] LABCLIA [id number] [place] [address] [place] AST [Catalytic activity/Vol] 21 U/L Normal 13-35 [facility] Comment on above: Order Comment: Speci men Type: BLOOD SPECIMENOrdering Facility: [facility] Address: [address] [place] [address] Performed By: #### 3 016-3, 34054-2, [id number], 96768-8, 97460-7 ####[facility] LABIA [id number] [place] [address] [place] Bilirubin [Mass/Vol] 0.5 mg/dL Normal 0.2-1.3 [facility] Comment on above: Order Comment: Speci men Type: BLOOD SPECIMENOrdering Facility: [facility] Address: [address] [place] [address] Performed By: #### 3 016-3, 60033-8, [id number], 34519-9, 51305-5 ####[facility] LABIA [id number] [place] [address] [place] Calcium [Mass/Vol] 9.7 mg/dL Normal 8.5-10.2 [facility] Comment on above: Order Comment: Speci men Type: BLOOD SPECIMENOrdering Facility: [facility] Address: [address] [place] [address] Performed By: #### 3 016-3, 03225-0, [id number], 91334-9, 23703-8 ####[facility] LABCLIA [id number] [place] [address] [place] Chloride [Moles/Vol] 104 mmol/L Normal 98-107 [facility] Comment on above: Order Comment: Speci men Type: BLOOD SPECIMENOrdering Facility: [facility] Address: [address] [place] [address] Performed By: #### 3 016-3, 38588-9, [id number], 61788-0, 60624-6 ####[facility] LABCLIA [id number] [place] [address] [place] CO2 [Moles/Vol] 27 mmol/L Normal 22-30 [facility] Comment on above: Order Comment: Speci men Type: BLOOD SPECIMENOrdering Facility: [facility] Address: [address] [place] [address] Performed By: #### 3 016-3, 93028-7, [id number], 11122-9, 97732-8 ####[facility] LABCLIA [id number] [place] [address] [place] Creatinine [Mass/Vol] 0.89 mg/dL Normal 0.58-0.96 [facility] Comment on above: Order Comment: Speci men Type: BLOOD SPECIMENOrdering Facility: [facility] Address: [address] [place] [address] Performed By: #### 3 016-3, 90649-1, [id number], 19110-5, 96424-1 ####[facility] LABCLIA [id number] [place] [address] [place] [facility] Creatinine and Glomerular filtration rate.predicted panel (S/P/Bld) 72 mL/min/1.73m??? Normal >=60 [facility] Comment on above: Order Comment: Speci men Type: BLOOD SPECIMENOrdering Facility: [facility] Address: [address] [place] [address] Result Comment: Shira mated Glomerular Filtration Rate (eGFR) is calculated using the 2020 CKD-EPI creatinine equation. This equation utilizes serum creatinine, sex, and age as parameters. The creatinine assay has traceable calibration to isotope dilution-mass spectrometry. Refer to KDIGO guidelines for clinical interpretation. In patients with unstable renal function, e.g. those with acute kidney injury, the eGFR may not accurately reflect actual GFR. Performed By: #### 3 016-3, 01670-0, [id number], 38135-4, 09458-2 ####[facility] LABCLIA [id number] [place] [address] [place] Glucose [Mass/Vol] 118 mg/dL High 74-99 [facility] Comment on above: Order Comment: Allan phelps Type: BLOOD SPECIMENOrdering Facility: [facility] Address: [address] [place] [address] Result Comment: The [place] [employer] (ADA) provides guidance for cutoff values for fasting glucose and random glucose. The ADA defines fasting as no caloric intake for at least 8 hours. Fasting plasma glucose results between 100 to 125 mg/dL indicate increased risk for diabetes (prediabetes). Fasting plasma glucose results greater than or equal to 126 mg/dL meet the criteria for diagnosis of diabetes. In the absence of unequivocal hyperglycemia, results should be confirmed by repeat testing. In a patient with classic symptoms of hyperglycemia or hyperglycemic crisis, random plasma glucose results greater than or equal to 200 mg/dL meet the criteria for diagnosis of diabetes. Reference: Standards of Medical Care in Diabetes 2016, [place] [employer] Association. Diabetes Care. 2016.39(Suppl 1). Performed By: #### 3 016-3, 66838-7, CSK8235, , 57672-8 ####[facility] LABCLIA [id number] [place] [address] [place] Potassium [Moles/Vol] 3.9 mmol/L Normal 3.7-5.1 [facility] Comment on above: Order Comment: Allan phelps Type: BLOOD SPECIMENOrdering Facility: [facility] Address: [address] [place] [address] Performed By: #### 3 016-3, 61375-6, [id number], 37619-5, 46903-3 ####[facility] LABCLIA [id number] [place] [id number] [place] Protein [Mass/Vol] 7.5 g/dL Normal 6.3-8.0 [facility] Comment on above: Order Comment: Speci men Type: BLOOD SPECIMENOrdering Facility: [facility] Address: [facility] [place] [address] Performed By: #### 3 016-3, 70459-4, [id number], 54670-8, 72321-2 ####[facility] LABCLIA [id number] [place] [address] [place] Sodium [Moles/Vol] 140 mmol/L Normal 136-144 [facility] Comment on above: Order Comment: Speci men Type: BLOOD SPECIMENOrdering Facility: [facility] Address: [address] [place] [address] Performed By: #### 3 016-3, 95370-0, [id number], 55007-7, 80880-5 ####[facility] LABCLIA [id number] [place] [address] [place] Urea nitrogen [Mass/Vol] 19 mg/dL Normal 7-21 [facility] Comment on above: Order Comment: Speci men Type: BLOOD SPECIMENOrdering Facility: [facility] Address: [address] [place] [address] Performed By: #### 3 016-3, 32001-2, [id number], 99494-7, 98161-8 ####[facility] LABCLIA [id number] [place] [address] [place] [facility] ECG COMPLETEon 10-23-2023 ECG COMPLETE Ventricular Rate : 139 BPM QRS Duration : 76 ms Q-T Interval : 316 ms QTC Calculation(Bazett) : 480 ms Calculated R [place] : 10 degrees Calculated T [place] : 18 degrees Atrial fibrillation with rapid ventricular response Possible Inferior infarct , age undetermined Abnormal ECG No previous ECGs available Confirmed by ARYA TAY MD ([id number]) on 10/23/2023 11:43:04 PM NAME : MONIE SERRANO PID : [id number] : 1955 Gender : Female Race : ORD : [id number] Procedure Date : Oct 23 2023 15:05:02 Edit Date : Oct 23 2023 23:43:05 Diagnosis: Atrial fibrillation with rapid ventricular response Possible Inferior infarct , age undetermined Abnormal ECG No previous ECGs available Confirmed by ARYA TAY MD ([id number]) on 10/23/2023 11:43:04 PM Test Reason : HCS Location : 3 : ED ED Overread By : ARYA TAY MD Edited By : ARYA TAY MD Referred By : , Acquired by : , [facility] ED NOTEon 10-23-2023 ED NOTE HNO ID: [id number] Author: GWENDOLYN MATHEWS RN Service: ? Author Type: Registered Nurse Type: ED Notes Filed: 10/23/2023 17:22 Note Text: Verbal report given to nurse on Step-down [facility] ED PROV NOTEon 10-23-2023 ED PROV NOTE HNO ID: [id number] Author: JUNIOR KRUEGER MD Service: ? Author Type: Physician Type: ED Provider Notes Filed: 10/23/2023 22:49 Note Text: ED Provider Note Patient Name: Monie Serrano : 1955 SERVICE DATE: 10/23/23 History Patient presents with: Palpitations: Apple watch has elevated heart rate, and in A-Fib. Was seen at PCP today and sent here 67-year-old female presented to ED by private vehicle because of elevated heart rates and because of her Apple Watch reporting abnormal heart rhythm suggesting atrial fibrillation. Patient denies any chest heaviness/pain/pressu re but states she has had shortness of breath with frequent coughing. She denies any prior history of atrial fibrillation or any cardiac problems. Patient denies any leg swelling or leg pain or any recent travel outside of [facility]. She has not had any fever/chills, no colored sputum production, no hemoptysis, no abdominal pain or back pain associated. She has not had any change in bowel/bladder habit patterns. No relieving factors reported History provided by: Patient PAST MEDICAL HISTORY No date: NEGATIVE MEDICAL HISTORY No date: Pernicious anemia Comment: Takes vitamin B12 shots monthly No date: Vitamin D deficiency PAST SURGICAL HISTORY No date: ANKLE SURGERY HX Comment: Right Achilles tendon surgery 2018 No date: LAPAROSCOPIC CHOLEYCYSTECTOMY Comment: Cholecystectomy, lap FAMILY HISTORY Problem Relation Age of Onset Stroke Mother 70 other (pernicious anemia) Mother Cancer Father colon other (Multiple sclerosis) Father other (1 daughter with hemochromatosis, 1 son with Graves' disease, 1 daughter with rheumatoid arthritis, 1 son with asthma (all separate children)) Other other (pernicious anemia) Maternal Grandmother No Known Problems Maternal Grandfather No Known Problems Paternal Grandmother No Known Problems Paternal Grandfather No Known Problems Paternal Aunt No Known Problems Paternal Aunt No Known Problems Paternal Uncle No Known Problems Paternal Uncle No Known Problems Paternal Uncle Rheumatologic disease Daughter other (hyperthyroid) Son Social History Tobacco Use Smoking status: Never Smokeless tobacco: Never Substance and Sexual Activity Alcohol use: Yes Comment: occ, once per year or less Drug use: No Sexual activity: Not on file ALLERGIES No Known Allergies Review of Systems Constitutional: Negative. HENT: Negative. Eyes: Negative. Respiratory: Positive for cough and shortness of breath. Cardiovascular: Positive for palpitations. Gastrointestinal: Negative. Endocrine: Negative. Genitourinary: Negative. Musculoskeletal: Negative. Skin: Negative. Neurological: Negative. Psychiatric/Behaviora l: Negative. All other systems reviewed and are negative. Physical Exam Vitals [10/23/23 1451] BP Pulse Temp Temp src Resp SpO2 Weight Height 130/90 (!) 143 36.8 ?C (98.3 ?F) Oral 20 97 % 90.3 kg (199 lb 1.2 oz) 1.676 m (5' 6) Physical Exam Vitals and nursing note reviewed. Constitutional: General: She is not in acute distress. Appearance: Normal appearance. She is not ill-appearing, toxic-appearing or diaphoretic. HENT: Head: Normocephalic and atraumatic. Right Ear: External ear normal. Left Ear: External ear normal. Nose: Nose normal. Mouth/Throat: Mouth: Mucous membranes are moist. Eyes: Extraocular Movements: Extraocular movements intact. Pupils: Pupils are equal, round, and reactive to light. Cardiovascular: Rate and Rhythm: Tachycardia present. Rhythm irregular. Pulses: Normal pulses. Heart sounds: Normal heart sounds. No murmur heard. No friction rub. No gallop. Comments: Irregularly irregular tachycardic rate Pulmonary: Effort: Pulmonary effort is normal. Breath sounds: No rales. Comments: Some mild crackles and diminished air entry noted at the bilateral lung bases Abdominal: General: Abdomen is flat. Bowel sounds are normal. Palpations: Abdomen is soft. Musculoskeletal: General: Normal range of motion. Cervical back: Normal range of motion and neck supple. Skin: General: Skin is warm and dry. Capillary Refill: Capillary refill takes less than 2 seconds. Neurological: General: No focal deficit present. Mental Status: She is alert and oriented to person, place, and time. Cranial Nerves: No cranial nerve deficit. Sensory: No sensory deficit. Psychiatric: Mood and Affect: Mood normal. Behavior: Behavior normal. Diagnostic Testing ED Labs Ordered and Reviewed COMPREHENSIVE METABOLIC PANEL - Abnormal; Notable for the following components: Result Value Ref Range Glucose 118 (*) 74 - 99 mg/dL All other components within normal limits HIGH SENSITIVITY TROPONIN T (INITIAL) - Abnormal; Notable for the following components: POLO High Sensitivity 15 (*) <12 ng/L All other components within normal limits NT PRO BNP - Abnormal; Notable for the (more content not included)... [facility] ED Triage Noteon 10-23-2023 ED Triage Note HNO ID: [id number] Author: DANYA WILSON APRN.MARGARET Service: Emergency Medicine Author Type: Nurse Practitioner Type: ED Triage Notes Filed: 10/23/2023 14:55 Note Text: ED TRIAGE PROVIDER NOTE Patient Name: Monie Serrano Service Date: 10/23/23 BRIEF HPI: This is a 67 year old female who presents to the ED with: Started wearing an apple watch this week and keeps getting notified that she is in a-fib. Denies chest pain, stated she feels like she has been wheezing and like she has to cough frequently. Denies known history of a-fib. BRIEF EXAM: NAD Awake and Alert Non labored breathing No focal neurological deficits INITIAL WORKUP AND DECISION MAKING: Orders Placed This Encounter XR CHEST 2V FRONTAL/LAT Complete Blood Count and Differential Comprehensive Metabolic Panel High Sensitivity Troponin T with Reflex for ED Chest Pain Magnesium NT Pro BNP ECG COMPLETE The patient was seen by me in intake for a brief history and physical obtained for triage reasons only. My exam is intended to be an initial medical screening exam to expedite treatment and disposition. This may not be a comprehensive workup and limited initial orders were placed. SIGNATURE: Danya Wilson APRN.ONLINE COMMUNICATIONS SPECIALIST [facility] Fibrin D-dimer FEU (PPP) [Ma ss/Vol]on 10-23-2023 Fibrin D-dimer DDU IA (Bld) [Mass/Vol] 447 ng/mL DDU High <=230 [facility] Comment on above: Order Comment: Speci men Type: BLOOD SPECIMENOrdering Facility: [facility] Address: [address] [place] [address] Performed By: #### 4 8065-7 ####[facility] LABIA [id number] [place] [address] [facility] HIGH SENSITIVITY TROPONIN T (INITIAL)on 10-23-2023 Troponin T.cardiac High sensitivity method [Mass/Vol] 15 ng/L High <12 [facility] Comment on above: Order Comment: Speci men Type: BLOOD SPECIMENOrdering Facility: [facility] Address: [address] [place] [address] Performed By: #### 3 016-3, 03434-3, [id number], 13140-1, 05896-1 ####[facility] LABIA [id number] [address] HIGH SENSITIVITY TROPONIN T (SECOND)on 10-23-2023 Troponin T.cardiac High sensitivity method [Mass/Vol] 23 ng/L High <12 [facility] Comment on above: Order Comment: Speci men Type: BLOOD SPECIMENOrdering Facility: [facility] Address: [address] [place] [address] Performed By: #### L [id number] ####[facility] LABIA [id number] [address] HIGH SENSITIVITY TROPONIN T (THIRD) 3 HRS AFTER INITIALon 10-23-2023 Troponin T.cardiac High sensitivity method [Mass/Vol] 17 ng/L High <12 [facility] Comment on above: Order Comment: Speci men Type: BLOOD SPECIMENOrdering Facility: [facility] Address: [address] [place] [address] Performed By: #### L [id number] ####[facility] LABCLIA [id number] [place] [address] [place] HISTORY PHYSICALon HISTORY PHYSICAL HNO ID: [id number] Author: SALVADOR PORTILLO APRN.MARGARET Service: Hospital Medicine Author Type: Nurse Practitioner Type: H&P Filed: 10/23/2023 18:11 Note Text: HISTORY AND PHYSICAL EXAMINATION SERVICE DATE: 10/23/2023 SERVICE TIME: 1645 PRIMARY CARE PHYSICIAN: Josiah Donovan MD, MD Subjective CHIEF COMPLAINT: not feeling good/stuffy head/some sob HPI: This is a 67 year old female who presents with not much of a pmh. She does have a history of nocturnal muscle cramps, myalgia and generalized weakness. She states that she felt she was just having some allergy issues as her head felt stuffy, her nose felt stuffy and she felt a little short of breath. She did go to her family physician today. They sent her to be evaluated in the emergency department as they felt that she was in atrial fibrillation. Patient reports her symptoms started this past Friday. Troponins . PT 12.7. aPTT 30.9. INR 1.1. TSH within normal limits. Glucose 118 otherwise comprehensive metabolic panel unremarkable. Mag within normal limits. BNP 1537. D-dimer 447. CBC unremarkable. Denies cp/sob at rest/n/v/d/abd pain/fever/chills. Admits to sob with activity. ED course: Labs as above CXR:IMPRESSION: Right basilar opacities can represent atelectasis or infiltrates. Correlation with clinical concern for infection may be of value. Prominence of the perihilar markings which can be seen with pulmonary edema. Lovenox Cardizem bolus and drip Lopressor Normal saline bolus Patient is admitted under hospitalist service for further evaluation and treatment. FUNCTIONAL STATUS: Independent PAST MEDICAL HISTORY No date: NEGATIVE MEDICAL HISTORY No date: Pernicious anemia Comment: Takes vitamin B12 shots monthly No date: Vitamin D deficiency PAST SURGICAL HISTORY No date: ANKLE SURGERY HX Comment: Right Achilles tendon surgery 2017 No date: LAPAROSCOPIC CHOLEYCYSTECTOMY Comment: Cholecystectomy, lap FAMILY HISTORY Problem Relation Age of Onset Stroke Mother 70 other (pernicious anemia) Mother Cancer Father colon other (Multiple sclerosis) Father other (1 daughter with hemochromatosis, 1 son with Graves' disease, 1 daughter with rheumatoid arthritis, 1 son with asthma (all separate children)) Other other (pernicious anemia) Maternal Grandmother No Known Problems Maternal Grandfather No Known Problems Paternal Grandmother No Known Problems Paternal Grandfather No Known Problems Paternal Aunt No Known Problems Paternal Aunt No Known Problems Paternal Uncle No Known Problems Paternal Uncle No Known Problems Paternal Uncle Rheumatologic disease Daughter other (hyperthyroid) Son Social History Tobacco Use Smoking status: Never Smokeless tobacco: Never Substance Use Topics Alcohol use: Yes Comment: occ, once per year or less Drug use: No (Not in a hospital admission) ALLERGIES No Known Allergies COMPLETE REVIEW OF SYSTEMS: All other ROS are negative unless indicated in the HPI Objective PHYSICAL EXAM: Physical Exam Performed: GENERAL: Alert, no distress, cooperative, Obese EYES: PERRLA, EOMI LUNGS: Crackles to bilateral mid and lower bases CARDIAC: Normal S1 and S2; no rubs, murmurs, or gallops ABDOMEN: Abdomen soft, non-tender, BS normal, No masses or organomegaly EXTREMITIES: No ulcers, bilateral lower extremities are larger however there is no pitting edema. Pedal pulses present bilaterally. NEURO: Grossly normal cognition, motor function, and cranial nerves III-XII, Cranial nerves II-XII intact PULSES: 2+ radial, 2+ dorsalis pedis BP 95/83 Pulse 100 Temp (Src) 98.3 (Oral) Resp 14 Ht 5' 6 (1.68m) Wt 199 lb 1.2 oz (90.3kg) SpO2 97% BMI 32.15 kg/(m2). O2 Therapy: Room Air DATA: Diagnostic tests reviewed for today's visit: Most recent labs and imaging results. Assessment/Plan Active Hospital Problems New onset atrial fibrillation (HCC) (POA: Yes) Shortness of breath (POA: Yes) Elevated brain natriuretic peptide (BNP) level (POA: Yes) Positive D dimer (POA: Yes) Hyperglycemia (POA: Yes) Assessment AND Plan New onset atrial fibrillation (HCC) No chest pain Echo Stress test Continue Cardizem drip hospital monitor Cardiology consult Shortness of breath No current oxygen needs Last documented pulse ox is 97% on room air Lasix daily Monitor pulse ox Elevated brain natriuretic peptide (BNP) level Echo Stress test hospital monitor Cardiology consult Daily weight I's and O's Lasix daily Positive D dimer D-dimer [address] PE rule out as pt does have sob Hyperglycemia Glucose 118 No history of diabetes Appears to have not had hemoglobin A1c done recently A1c in am Daily CMP Medication and Non-Pharmacologic VTE Prophylaxis/Anticoagu lants Anticoagulant AND Antiplatelet Medications (From admission, onward) Start Dose Route Frequency Last Action Ordered Stop 10/24/23 0900 heparin (more content not included)... Normal [facility] Magnesium [facility] 10-22 Magnesium [Mass/Vol] 2.0 mg/dL Normal 1.7-2.3 [facility] Comment on above: Order Comment: Allan phelps Type: BLOOD SPECIMENOrdering Facility: [facility] Address: [address] [place] [address] Performed By: #### 3 016-3, 22547-8, [id number], 70504-7, 96846-8 ####[facility] LABIA [id number] [address] NT-proBNP [facility] 10-22 Natriuretic peptide.B prohormone N-Terminal [Mass/Vol] 1537 pg/mL High <125 [facility] Comment on above: Order Comment: Allan phelps Type: BLOOD SPECIMENOrdering Facility: [facility] Address: [address] [place] [address] Performed By: #### 3 016-3, 12353-0, [id number], 77760-1, 37454-7 ####[facility] LABIA [id number] [address] PT panel Coag (PPP)on 2023 INR Coag (PPP) [Relative time] 1.1 {INR} Normal 0.9-1.3 [facility] Comment on above: Order Comment: Allan phelps Type: BLOOD SPECIMENOrdering Facility: [facility] Address: [address] [place] [address] Result Comment: Danii min K Antagonist (VKA) Therapeutic Range: INR 2 to 3 (Target INR of 2.5) Note: For patients treated with VKA drugs, such as warfarin, the [employer] 2012 Guideline recommends a therapeutic INR range of 2 to 3 (target INR of 2.5). This recommendation includes high-risk patients with antiphospholipid syndrome with previous arterial or venous thromboembolism, current-generation mechanical or bioprosthetic aortic heart valve replacement. Note: Patients with mechanical aortic valve replacement and additional risk factors for thromboembolic events (atrial fibrillation, previous thromboembolism, LV dysfunction, hypercoagulable conditions) or an older generation mechanical AVR (i.e., ball in-Cage) or any mechanical MVR should have a INR therapeutic range of 2.5 to 3.5 (target INR of 3). Toni GH, et al. Chest 2012, 141:7S-47S Sebastián RA et al. [facility] 2017, 70: 252-289 Performed By: #### 3 4528-0, 34116-5 ####[facility] LABIA [id number] [place] [address] [place] PT Coag (PPP) [Time] 12.7 s High 9.4-12.5 [facility] Comment on above: Order Comment: Speci men Type: BLOOD SPECIMENOrdering Facility: [facility] Address: [address] [place] [address] Performed By: #### 3 4528-0, 13062-2 ####[facility] LABIA [id number] [place] [address] [place] TSH SerPl-aCncon 10-23-2023 TSH Qn 1.250 m[IU]/L Normal 0.270-4.200 [facility] Comment on above: Order Comment: Speci men Type: BLOOD SPECIMENOrdering Facility: [facility] Address: [address] [place] [address] Performed By: #### 3 016-3, 34796-8, [id number], 51845-8, 44276-1 ####[facility] LABIA [id number] [place] [address] [place] XR CHEST 1V FRONTAL PORTon 0 10-23-2023 XR CHEST 1V FRONTAL PORT * * *Final Report* * * DATE OF EXAM: Oct 23 2023 3:52PM UDX [id number] - XR CHEST 1V FRONTAL PORT / PROCEDURE REASON: Pulmonary Edema * * * * Physician Interpretation * * * * EXAMINATION: CHEST RADIOGRAPH (PORTABLE SINGLE VIEW AP) Exam Date/Time: 10/23/2023 3:52 PM CLINICAL HISTORY: Pulmonary Edema MQ: XCPR_5 Comparison: None RESULT: Lines, tubes, and devices: None. Lungs and pleura: There are low lung volumes with bronchovascular crowding. There are bilateral perihilar hazy opacities and right basilar patchy opacities. Cardiomediastinal silhouette: Within normal limits. Bones and soft tissues: No acute osseous abnormality is identified. The imaged upper abdomen is within normal limits. IMPRESSION: Right basilar opacities can represent atelectasis or infiltrates. Correlation with clinical concern for infection may be of value. Prominence of the perihilar markings which can be seen with pulmonary edema. Circular Gang Saw Operator: PSCB Transcribe Date/Time: Oct 23 2023 4:02P Dictated by : BEN VARGAS MD This examination was interpreted and the report reviewed and electronically signed by: BEN VARGAS MD on Oct 23 2023 4:03PM EST [id number] Normal [facility] aPTT PPPon 10-23-2023 aPTT Coag (PPP) [Time] 30.9 s Normal 25.1-36.5 [facility] Comment on above: Order Comment: Speci men Type: BLOOD SPECIMENOrdering Facility: [facility] Address: [address] [place] [address] Result Comment: [facility] Heparin Therapeutic Range: 54-90 seconds Performed By: #### 3 4528-0, 50825-7 ####[facility] LABCLIA [id number] [place] [address] [place] MRI FOOT W/O CON LTon 2020 MRI FOOT W/O CON LT MRI FOOT W/O CON LT Ordering Physician: Enedelia Casanova DPM 02/01/2021 8:54 AM MRI LEFT FOREFOOT: Clinical Statement: Plantar plate injury. Comparison: None. TECHNIQUE: 3 mm thick T1 and STIR axial, 4 mm thick PD and fat-suppressed T2 coronal and 2 mm thick T1 and fat-suppressed PD sagittal MR images of the forefoot were obtained without contrast. FINDINGS: At the first MTP joint, the plantar plate appears intact. The intersesamoid ligament and collateral ligaments are intact. There is degenerative change at the first MTP joint with thinning of the articular cartilage, small subarticular degenerative cystic foci and spurring at the base of the proximal phalanx laterally. There is no joint effusion. There is degenerative irregularity of the hallux sesamoids. A bipartite medial hallux sesamoid is noted. The sesamoids show no cystic change or edema. The plantar plates of the second through fifth toes appear intact with no surrounding edema or fluid. There is mild periarticular soft tissue thickening noted at the second MTP joint with mild marrow edema at the base of the proximal phalanx. No associated erosions or joint effusion. There is mild degenerative spurring at the head of the fifth metatarsal. Degenerative changes noted at the second and third tarsometatarsal joints. Remaining marrow signal is otherwise within normal limits with no fracture, stress edema or periostitis visualized. The flexor and extensor tendons are normal. The muscles are normal in signal and morphology. No evidence of intermetatarsal bursitis or Ahumada's neuroma. IMPRESSION: 1. Mild nonspecific periarticular soft tissue thickening at the second MTP joint. There is minimal edema at the base of the proximal phalanx which is probably reactive in nature. 2. Degenerative changes as above. 3. No evidence of plantar plate injury. This report was electronically signed by Daphney Meehan MD 02/02/2021 4:30 PM Reported By: DAPHNEY MEEHAN M.D. Signed By: DAPHNEY MEEHAN M.D. [facility] 04-28-2020 [facility] Office Visit (NENMMN ) MONIE SERRANO ([id number]) 1955 F Date Time Provider Department 04/28/20 3:30 PM JENNIFER SOARES During your visit today, we recorded the following information about you: Pulse Blood pressure Weight Height 69/minute 112/67 86.2 kg 1.676 m Jennifer Soares MD 05/07/2020 9:12 PM Signed S[facility] Note- Established patient Provider: Aaorn Mcgrath DO (NM Fellow)/ Dr. Phyllis MD (DC Staff) Date of last clinic visit: 03/01/2020 Virtual Visit CC: cramping Subjective: Since last visit she has had no progression in her cramping frequency, duration, intensity or location. No new weakness or numbness. She continues [place] be active [place] with no injurious falls. Her pain continues to be very bothersome and frequent. Cramping is 5-6 times per week with bad days and good days. A bad day is 3-4 times and soaks her hands in hot water which helps 50% times. On a good day she has maybe 1 cramp in the hands. She has bee hives. Taking gabapentin makes her tired. She does not feel this medication impacted her symptoms. Warm water helps her fingers relax when they tighten. She has taken magnesium for 8 weeks. She does not recall dosage. Baclofen has helped the most. She takes 10mg in the am and pm and rarely in the afternoon. Duration of cramps was lessened and she was able to gain more continuous sleep. She continues b12 injections monthly To review, her father had multiple sclerosis. In his 20s and 30s he used a cane and his 40s. He had right cheek burning. He past away from colon cancer at 56. He was using a walker at that time. Prior History: Mrs. 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 She had pain a few hours after exerting her self that day. She tore both achilles tendosn. Right was repaired as this was a complete tear. Partial tear on the left. The right foot would swell. This responded some to deep tissue message. Her surgeon told her to give it a year. She was told the cramps were not due to surgery so she began to seek evaluation. Currently... She believes that there may be some associated muscle twitching occurring in the right hand only. She also suspects some associated weakness in the affected muscles, although with cramping, it is difficult to definitely separate dysfunction (including gait difficulty) from cramp and pain associated effects in the limb. She mentioned that at times she had impaired dexterity and may spill coffee, for example. She did not believe that there is muscle atrophy/bulk loss... 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 Again, no clear triggering with ambient cold. Initially, she sought medical attention through her PCP who had prescribed baclofen (initially taken 5 mg a.m., 10 mg p.m.) she was then referred to local area neurologist Dr. Hernandez ([place], [place]) and multiple blood lab testing results were reportedly unrevealing. She also describes having NCS and EMG locally which was showed nothing substantial. Because her father carried a diagnosis of MS, there was some speculation about a potential [employer] cause, and MRI brain and cervical spine, and possibly thoracic spine was done, only revealing some narrowing at C3-C4(?), but apparently no high-grade stenoses, and no culprit parenchymal lesions. Lumbar spine MRI was denied by insurance. Baclofen was increased to 10 mg 3 times daily (although the patient typically takes twice daily), and gabapentin was added (300 mg p.o. nightly, +/-100 mg every morning), which has produced some alleviation in symptoms. Of note, the patient has not previously tried magnesium supplements. Meds and allergies as listed (below and above, respectively) Current Outpatient Medications Medication Sig - baclofen (LIORESAL) 10 mg tablet Take 10 mg by mouth twice daily. - cyanocobalamin 1,000 mcg/mL once every month. - gabapentin (NEURONTIN) 100 mg capsule as directed. 1-2 capsules throughout the day and 3 tablets at bedtime - CALCIUM ORAL Take by mouth twice daily. - cholecalciferol, vitamin D3, (VITAMIN D3 ORAL) Take by mouth twice daily. No current facility-administered medications for this vis (more content not included)... Normal [facility] C-REACTIVE PROTon 10-18-2019 C-REACTIVE PROT 0.21 mg/dL Normal 0.00-0.50 [facility] Comment on above: Result Comment: STAT ED NORMAL RANGE IS FOR ADULTS ONLY. NO NORMAL RANGE HAS BEEN ESTABLISHED FOR CHILDREN. Performed By: #### L 100.0470, L100.0490 #### [facility] - LAB[facility]ATORY [address] [place] [address] ESRon 10-18-2019 ESR (Bld) [Velocity] 9 mm/h Normal 0-20 [facility] Comment on above: Performed By: #### L 200.1500 #### [facility] - [facility] [address] [place] [address] Otheron 10-18-2019 Erythro Sed Rate 9 MM/HR 0 - 20 MM/HR [facility] CRP High sensitivity method (Bld) [Mass/Vol] 0.21 mg/dL 0.00 - 0.50 mg/dL [facility] Rheumatoid Factor <10 0 - 14 IU/mL [facility] RHEUMATOID FACTon 10-18-2019 RHEUMATOID FACT <10 Normal 0-14 [facility] Comment on above: Performed By: #### L 100.0470, L100.0490 #### [facility] - [facility] [address] [place] [address] Vital Signs Date Time Vital Sign Value Performing Clinician Faci lity 11-14-2023 13:33-0400 Diastolic blood pressure 69 mm[Hg] [facility] 11-14-2023 13:33-0400 Heart rate 57 /min [facility] 11-14-2023 13:33-0400 Respiratory rate 14 /min [facility] 11-14-2023 13:33-0400 SaO2% (BldA) [Mass fraction] 97 % [facility] 11-14-2023 13:33-0400 Systolic blood pressure 98 mm[Hg] [facility] 08-23-2021 10:19-0400 Body height 162.56 cm [facility] Work Phone: Encounters Encounter Date Encounter Type Care Provider Facility Start: 08-18-2024 ambulatory Chuck ROBBINS Facility:[facility] Start: 08-03-2024 End: 08-03-2024 ambulatory YENNIFER CUELLAR Facility:[id number] Start: 08-03-2024 Encounter for preprocedural laboratory examination JOSIAH DONOVAN [facility] Start: 07-22-2024 ambulatory JOSIAH DONOVAN Facility:[id number] Start: 07-22-2024 End: 07-22-2024 Subsequent hospital visit by physician [address] Comment on above: Vertebrogenic low ba ck pain [M54.51] Start: 07-09-2024 End: 07-09-2024 ambulatory JOSIAH DONOVAN Facility:[id number] Start: 03-19-2024 End: 03-19-2024 ambulatory JENNIFER KIDD Facility:[id number] Start: 03-02-2024 End: 03-02-2024 Transcribe Orders Jennifer Kidd MD Work Phone: [facility] Comment on above: Elevated glucose (Pr imary Dx); Heart failure with preserved ejection fraction, unspecified HF chronicity (HCC); Atrial fibrillation, unspecified type (HCC) Start: 02-19-2024 End: 02-19-2024 ambulatory JOSIAH DONOVAN Facility:[id number] Start: 12-18-2023 End: 12-18-2023 ambulatory JOSIAH DONOVAN Facility:[id number] Start: 11-14-2023 ambulatory JENNIFER KIDD Facility :[id number] Start: 11-14-2023 End: 11-14-2023 Subsequent hospital visit by physician Rupert Stein APRN.CRNA Work Phone: [facility] Comment on above: Arrived Start: 10-23-2023 End: 10-26-2023 Evaluation and management of inpatient JOSIAH DONOVAN Facility:[id number] Start: 08-23-2021 End: 08-23-2021 Patient encounter procedure [facility] Bone Densitometry Start: 02-02-2021 End: 02-02-2021 Subsequent hospital visit by physician Jennifer Casanova MD Work Phone: [facility] Comment on above: M93.872, M79.672, S8 9.92XA Start: 10-18-2019 End: 10-18-2019 Subsequent hospital visit by physician Provider [facility] Comment on above: PAIN SWELLING INFLAM MATION Start: 10-02-2016 Ambulatory SEEMA Small ZHENG [facility] Procedures Date Procedure Procedure Detail Performing Clinician Start: 11-14-2023 Ecg routine ecg w/le ast 12 lds i&r only Nga Boyle MD Work Phone: Start: 11-14-2023 Echo transthorc r-t 2d w/wo m-mode rec f-up/lmtd Nga Boyle MD Work Phone: Start: 11-14-2023 Ecg routine ecg w/le ast 12 lds i&r only Nga Boyle MD Work Phone: Start: 08-23-2021 Dual energy X-ray absorptiometry Start: 08-23-2021 Screening mammography Start: 10-18-2019 C-reactive protein Natanael lip Han Donovan Work Phone: Start: 10-18-2019 RHEUMATOID FACTOR BL Ph illamaury Donovan Work Phone: Start: 10-18-2019 SED RATE WESTERGREN Phi llamaury Donovan Work Phone: Plan of Treatment Date Care Activity Detail Author Start: 2032 RSV Vaccine (1 - 1-d ose 75+ series) RSV Vaccine (1 - 1-dose 75+ series) [facility] Start: 07-10-2027 Diabetes Screening Diabetes Screenin g [facility] Start: 02-18-2027 Diabetes Screening Diabetes Screenin g [facility] Start: 10-25-2026 Diabetes Screening Diabetes Screenin g [facility] Start: 07-26-2024 Screening for malign ant neoplasm of colon [facility] Start: 06-03-2024 Covid-19 Vaccine ( season) Covid-19 Vaccine () [facility] Start: 03-19-2024 End: 03-19-2024 Patient encounter procedure 03/19/2024 7:00 AM EST Appointment [facility] [address] [place] [address] I48.91 [facility] Comment on above: I48.91 Start: 02-25-2024 Advance Directive Discussion Advance Directive Discussion [facility] Start: 10-26-2023 Covid-19 Vaccine ( season) Covid-19 Vaccine () [facility] Start: 10-26-2023 Influenza vaccination Influenza Vacc ine (#1) [facility] Start: 02-24-2023 Advance Directive Discussion Advance Directive Discussion [facility] Start: 2022 Screening for osteoporosis Bone Dens ity Screening [facility] Start: 12-15-2021 DIABETES SCREEN DIABETES SCREEN [facility] Start: 10-26-2019 Influenza vaccination INFLUENZA (#1) [facility] Start: 2017 RSV Vaccine (1 - Ris k 60-74 years 1-dose series) RSV Vaccine (1 - Risk 60-74 years 1-dose series) [facility] Start: 12-17-2007 SHINGRIX VACCINE (1 of 2) SOFIA GRIX VACCINE (1 of 2) [facility] Start: 12-17-2007 Tuberculosis screening COLOREC ELIOT CANCER SCREENING,SEE MODIFIER [facility] Start: 2002 Lipid panel Lipid Screening [facility] Start: 2002 LIPID SCREEN LIPID SCREEN [facility] Start: 2002 Screening for malign ant neoplasm of colon [facility] Start: 1997 Mammography MAMMOGRAM [facility] Start: 1997 Screening for malign ant neoplasm of breast Mammogram Screening [facility] Start: 12-17-1987 HPV TESTING HPV TESTING [facility] Start: 1978 PAP TESTING PAP TESTING [facility] Start: 1976 Urine microalbumin profile [facility] Start: 12-17-1975 Anxiety Screening Anxiety Screening [facility] Start: 12-17-1975 Depression Screening Depression Scre ening [facility] Start: 12-17-1975 HEPATITIS C SCREENING HEPATITIS C [facility] Start: 12-17-1975 Hepatitis C screening Hepatitis C [facility] Start: 12-17-1975 HIV SCREENING HIV SCREENING [facility] Start: 12-17-1975 HIV screening HIV Screening [facility] End: 11-15-2023 CARDIOVERSION (AK,UN) CARDIOVERSION (AK,UN) BIC Routine One Time for 1 Occurrences starting 11/15/2023 until 11/15/2023 [facility] Work Phone: Comment on above: One Time for 1 Occur rences starting 11/15/2023 until 11/15/2023 End: 03-02-2025 Echocardiography ECHO Cardiology Routine Elevated glucose Heart failure with preserved ejection fraction, unspecified HF chronicity (HCC) Atrial fibrillation, unspecified type (HCC) 1 Occurrences starting 03/02/2024 until 03/02/2025 [facility] Work Phone: Comment on above: 1 Occurrences starti ng 03/02/2024 until 03/02/2025 End: 07-22-2024 XR Lumbar spine AP and Lateral [facility] Comment on above: ONCE for 1 Occurrenc es starting 07/22/2024 until 07/22/2024 End: 07-22-2024 XR Thoracic spine AP and Lateral [facility] Comment on above: ONCE for 1 Occurrenc es starting 07/22/2024 until 07/22/2024 Immunizations Immunization Date Immunization Notes Care Provider Pawel feldman 04-25-2023 zoster vaccine recombinant [facility] 02-04-2023 pneumococcal conjuga te (PCV20) vaccine, 20 valent (PREVNAR 20) [facility] 02-04-2023 zoster vaccine recombinant [facility] 01-28-2023 COVID-19 vaccine, ag e 12+ yr (MODERNA) [facility] 01-28-2023 influenza (HD-IIV4) vaccine, age 65+ yr, high dose, quadrivalent, PF (FLUZONE HIGH-DOSE) [facility] 01-28-2023 influenza virus vacc ine, unspecified formulation [facility] 09-05-2021 COVID-19 original va ccine, full dose, monovalent (MODERNA) [facility] 01-24-2021 COVID-19 original va ccine, full dose, monovalent (MODERNA) [facility] 05-31-2020 COVID-19 original va ccine, full dose, monovalent (MODERNA) [facility] 05-04-2020 COVID-19 original va ccine, full dose, monovalent (MODERNA) Sp [facility] Payers Date Payer Category Payer Self-pay [id number] 2022 Medicare [employer] THP SECURECARE MDCR O [id number] 2022-Present [phone] [address] [place] [address] [facility] [id number] 2022 Medicare (Managed Care) THP SECU RECARE MDCR O [id number] 2022 Unknown [id number] 2018 Unknown MMO MMO SUPERMED PLUS [id number] 2018-Present PPO [id number] 2013 Unknown SELF PAY INSURANCE [id number] 2010 Private Health Insurance [facility] CHOICE PLUS [id number] 2010-Present HMO [id number] Unknown SELF PAY INSURANCE [id number] Unknown [id number] Social History Date Type Detail Facility Start: 01-29-2010 End: 04-28-2020 Tobacco smoking status NHIS Never smoker [facility] Start: 01-29-2010 End: 11-14-2023 Alcohol intake Current drinker of alcohol (finding) [facility] Start: 01-29-2010 Alcohol Comment occ, once per year [facility] Start: 1955 Sex Assigned At Not on file [facility] Start: 1955 Sex Assigned At Female [facility] Work Phone: Start: 04-28-2020 Tobacco use and exposure Smokeless tobacco non-user [facility] Start: 03-01-2020 End: 11-14-2023 History of Social function [facility] Start: 03-01-2020 End: 11-14-2023 Tobacco use panel [facility] Adult Depression Screening Assessment 0 [facility] Start: 03-01-2020 Alcohol Comment occ, once per year or less [facility] Start: 03-01-2020 Gender identity Identifies as female gender (finding) [facility] Start: 03-01-2020 Sexual orientation Heterosexual (pawel ellison) [facility] Goals Date Patient Goal Desired Activity /State Personal health goal Functional Status Date Assessment Result Facility 10-26-2023 Are you deaf, or do you have serious difficulty hearing No 10/26/2023 11:31 AM Alexandra Bhatti RN No [facility] 10-26-2023 Are you blind, or do you have serious difficulty seeing, even when wearing glasses No 10/26/2023 11:31 AM Alexandra Bhatti RN No [facility] 10-26-2023 Do you have serious difficulty walking or climbing stairs No 10/26/2023 11:31 AM Alexandra Bhatti RN No [facility] 10-26-2023 Do you have difficul ty dressing or bathing No 10/26/2023 11:31 AM Alexandra Bhatti RN No [facility] 10-26-2023 Because of a physica l, mental, or emotional condition, do you have difficulty doing errands alone such as visiting a physician's office or shopping No 10/26/2023 11:31 AM EDT Alexandra Mccormick RN No [facility] Mental Status Date Assessment Result Facility 10-26-2023 Because of a physica l, mental, or emotional condition, do you have serious difficulty concentrating, remembering, or making decisions No 10/26/2023 11:31 AM EDT Alexandra Mccormick RN No [facility] Clinical Notes 04-28-2020 to 07-22-2024 Ragini Montes RT(R) - 07/22/2024 1:00 PM Nga Salmon MD - 11/14/2023 11:30 AM Nga Salmon MD - 11/14/2023 11:30 AM Nga Salmon MD - 11/14/2023 11:30 AM EDT Note Date & Type Note Facility 07-22-2024 History of Present illness Narrative Radiology Service Progress Note PATIENT NAME: Monie Serrano DATE OF SERVICE: July 22, 2024 TIME: 1:22 PM PATIENT IDENTITY VERIFICATION COMPLETED USING TWO (2) IDENTIFIERS: Name and Date of confirmed by patient verbally and Name and Date of confirmed by identification band. FALL SCREENING: Has the patient had 2 falls in the last year or 1 fall with injury or currently using an Ambulatory Assistive Device (Walker, Cane, Wheelchair, Crutches, etc.)? No PATIENT GENDER DATA: Assigned female at . status: : No status: NO. PATIENT RELEVANT IMPLANT DATA REVIEWED: Not Applicable PATIENT PRESENTS WITH AN IMPLANTABLE OR ATTACHED CONCRETE PIPE MAKER: No RADIOLOGY DEPARTMENT: General X-ray: Exam(s) Completed: Spine X-Ray(s): Thoracic and Lumbar AP/LAT PERIPHERAL IV DATA: Not applicable SIGNED BY: RT Navjot(Hilario) July 22, 2024 1:22 PM documented in this encounter [facility] 07-22-2024 Note HNO ID: [id number] Author: RAGINI MONTES RT(R) Service: ? Author Type: Technologist Type: Progress Notes Filed: 07/22/2024 13:23 Note Text: Radiology Service Progress Note PATIENT NAME: Monie Serrano DATE OF SERVICE: July 22, 2024 TIME: 1:22 PM PATIENT IDENTITY VERIFICATION COMPLETED USING TWO (2) IDENTIFIERS: Name and Date of confirmed by patient verbally and Name and Date of confirmed by identification band. FALL SCREENING: Has the patient had 2 falls in the last year or 1 fall with injury or currently using an Ambulatory Assistive Device (Walker, Cane, Wheelchair, Crutches, etc.)? No PATIENT GENDER DATA: Assigned female at . status: : No status: NO. PATIENT RELEVANT IMPLANT DATA REVIEWED: Not Applicable PATIENT PRESENTS WITH AN IMPLANTABLE OR ATTACHED CONCRETE PIPE MAKER: No RADIOLOGY DEPARTMENT: General X-ray: Exam(s) Completed: Spine X-Ray(s): Thoracic and Lumbar AP/LAT PERIPHERAL IV DATA: Not applicable SIGNED BY: RT Navjot(Hilario) July 22, 2024 1:22 PM [facility] 11-14-2023 History and physical note CONSULT: CARDIOLOGY SERVICE SERVICE DATE: 11/14/2023 SERVICE TIME: CONSULTING PHYSICIAN: Nga Boyle PCP: Josiah Donovan MD, MD ATTENDING: No att. providers found REASON FOR CONSULT: Arrhythmias Subjective CHIEF COMPLAINT: No admission diagnoses are documented for this encounter. HISTORY OF PRESENT ILLNESS: Ms. Serrano is a 67 year old female who presents for atrial fibrillation. She was diagnosed with atrial fibrillation recently has been anticoagulation less than 4 weeks. She had a recent stress test which was unremarkable. Her last echocardiogram showed the systolic function was mildly decreased RV size was normal with mild MR. Denies any dysphagia no history peptic ulcer disease PAST MEDICAL HISTORY Diagnosis Date NEGATIVE MEDICAL HISTORY Pernicious anemia Takes vitamin B12 shots monthly Vitamin D deficiency PAST SURGICAL HISTORY Procedure Laterality Date ANKLE SURGERY HX Right Achilles tendon surgery 2018 LAPAROSCOPY SURG CHOLECYSTECTOMY Cholecystectomy, lap FAMILY HISTORY Problem Relation Age of Onset Stroke Mother 70 other (pernicious anemia) Mother Cancer Father colon other (Multiple sclerosis) Father other (1 daughter with hemochromatosis, 1 son with Graves' disease, 1 daughter with rheumatoid arthritis, 1 son with asthma (all separate children)) Other other (pernicious anemia) Maternal Grandmother No Known Problems Maternal Grandfather No Known Problems Paternal Grandmother No Known Problems Paternal Grandfather No Known Problems Paternal Aunt No Known Problems Paternal Aunt No Known Problems Paternal Uncle No Known Problems Paternal Uncle No Known Problems Paternal Uncle Rheumatologic disease Daughter other (hyperthyroid) Son Social History Tobacco Use Smoking status: Never Smokeless tobacco: Never Substance Use Topics Alcohol use: Yes Comment: occ, once per year or less Drug use: No Cannot display prior to admission medications because the patient has not been admitted in this contact. Current Facility-Administered Medications Medication Dose Route Frequency sodium chloride 0.9 % (flush) 2-10 mL (BD POSIFLUSH) 2-10 mL INTRAVENOUS ONCE NaCl 0.9% iv infusion 75 mL/hr INTRAVENOUS CONTINUOUS ALLERGIES No Known Allergies CARDIAC STATUS: REVIEW OF SYSTEMS: Review of symptom obtained pertinent mentioned in HPI Objective PHYSICAL EXAM: Oriented time place and person S1-S2 irregular regular Abdomen soft nontender No pedal edema There is no height or weight on file to calculate BMI. No data recorded No data found. DATA: Diagnostic tests reviewed for today's visit: Past 72 Hour Labs: Last Lab Drawn: TSH 1.250 10/23/2023 Prior Cardiac Workup: Impression/Recommendations Active Problems: * No active hospital problems. * Resolved Problems: * No resolved hospital problems. * #1 A-fib new onset 2. 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 Additional orders include SIGNATURE: Nga Boyle MD PATIENT NAME: Monie Serrano DATE: November 14, 2023 TIME: 11:49 AM [facility] Work Phone: 11-14-2023 History and physical note CONSULT: CARDIOLOGY SERVICE SERVICE DATE: 11/14/2023 SERVICE TIME: CONSULTING PHYSICIAN: Nga Boyle PCP: Josiah Donovan MD, MD ATTENDING: No att. providers found REASON FOR CONSULT: Arrhythmias Subjective CHIEF COMPLAINT: No admission diagnoses are documented for this encounter. HISTORY OF PRESENT ILLNESS: Ms. Serrano is a 67 year old female who presents for atrial fibrillation. She was diagnosed with atrial fibrillation recently has been anticoagulation less than 4 weeks. She had a recent stress test which was unremarkable. Her last echocardiogram showed the systolic function was mildly decreased RV size was normal with mild MR. Denies any dysphagia no history peptic ulcer disease PAST MEDICAL HISTORY Diagnosis Date NEGATIVE MEDICAL HISTORY Pernicious anemia Takes vitamin B12 shots monthly Vitamin D deficiency PAST SURGICAL HISTORY Procedure Laterality Date ANKLE SURGERY HX Right Achilles tendon surgery 2018 LAPAROSCOPY SURG CHOLECYSTECTOMY Cholecystectomy, lap FAMILY HISTORY Problem Relation Age of Onset Stroke Mother 70 other (pernicious anemia) Mother Cancer Father colon other (Multiple sclerosis) Father other (1 daughter with hemochromatosis, 1 son with Graves' disease, 1 daughter with rheumatoid arthritis, 1 son with asthma (all separate children)) Other other (pernicious anemia) Maternal Grandmother No Known Problems Maternal Grandfather No Known Problems Paternal Grandmother No Known Problems Paternal Grandfather No Known Problems Paternal Aunt No Known Problems Paternal Aunt No Known Problems Paternal Uncle No Known Problems Paternal Uncle No Known Problems Paternal Uncle Rheumatologic disease Daughter other (hyperthyroid) Son Social History Tobacco Use Smoking status: Never Smokeless tobacco: Never Substance Use Topics Alcohol use: Yes Comment: occ, once per year or less Drug use: No Cannot display prior to admission medications because the patient has not been admitted in this contact. Current Facility-Administered Medications Medication Dose Route Frequency sodium chloride 0.9 % (flush) 2-10 mL (BD POSIFLUSH) 2-10 mL INTRAVENOUS ONCE NaCl 0.9% iv infusion 75 mL/hr INTRAVENOUS CONTINUOUS ALLERGIES No Known Allergies CARDIAC STATUS: REVIEW OF SYSTEMS: Review of symptom obtained pertinent mentioned in HPI Objective PHYSICAL EXAM: Oriented time place and person S1-S2 irregular regular Abdomen soft nontender No pedal edema There is no height or weight on file to calculate BMI. No data recorded No data found. DATA: Diagnostic tests reviewed for today's visit: Past 72 Hour Labs: Last Lab Drawn: TSH 1.250 10/23/2023 Prior Cardiac Workup: Impression/Recommendations Active Problems: * No active hospital problems. * Resolved Problems: * No resolved hospital problems. * #1 A-fib new onset 2. 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 Additional orders include SIGNATURE: Nga Boyle MD PATIENT NAME: Monie Serrano DATE: November 14, 2023 TIME: 11:49 AM documented in this encounter [facility] 11-14-2023 Note HNO ID: [id number] Author: NGA BOYLE MD Service: Cardiovascular Disease Author Type: Physician Type: Procedures Filed: 11/14/2023 12:35 Note Text: DC Cardioversion NAME: Monie Serrano DATE: 11/14/2023 Indication: Atrial fibrillation Priority: Elective Performed By: CTS attending physician The patient was monitored and administered supplemental oxygen. The NPO status and anticoagulation status were confirmed. A DUC demonstrated no left atrial clot. Functioning intravenous access was in place. Adjunct airway equipment and suction were at the bedside and ready to use. Pacemaker equipment was at the bedside and ready to use. Gel pads were applied in the right anterior/left lateral configuration. The patient was sedated with propofol. The patient underwent a single external synchronized biphasic countershock with a maximal energy of 150 J. The patient converted to normal sinus rhythm. The patient tolerated the procedure without apparent complications. [facility] 11-14-2023 Procedure note Procedure(s): ELECTRICAL CARDIOVERSION PROCEDURE (W NOTE) DC Cardioversion NAME: Monie Serrano DATE: 11/14/2023 Indication: Atrial fibrillation Priority: Elective Performed By: CTS attending physician The patient was monitored and administered supplemental oxygen. The NPO status and anticoagulation status were confirmed. A DUC demonstrated no left atrial clot. Functioning intravenous access was in place. Adjunct airway equipment and suction were at the bedside and ready to use. Pacemaker equipment was at the bedside and ready to use. Gel pads were applied in the right anterior/left lateral configuration. The patient was sedated with propofol. The patient underwent a single external synchronized biphasic countershock with a maximal energy of 150 J. The patient converted to normal sinus rhythm. The patient tolerated the procedure without apparent complications. [facility] 11-14-2023 Procedure note Procedure(s): ELECTRICAL CARDIOVERSION PROCEDURE (W NOTE) DC Cardioversion NAME: Monie Serrano DATE: 11/14/2023 Indication: Atrial fibrillation Priority: Elective Performed By: CTS attending physician The patient was monitored and administered supplemental oxygen. The NPO status and anticoagulation status were confirmed. A DUC demonstrated no left atrial clot. Functioning intravenous access was in place. Adjunct airway equipment and suction were at the bedside and ready to use. Pacemaker equipment was at the bedside and ready to use. Gel pads were applied in the right anterior/left lateral configuration. The patient was sedated with propofol. The patient underwent a single external synchronized biphasic countershock with a maximal energy of 150 J. The patient converted to normal sinus rhythm. The patient tolerated the procedure without apparent complications. documented in this encounter [facility] 10-26-2023 Note HNO ID: [id number] Author: MAGGI YOST RN Service: Care Management Author Type: ? Type: Care Mgt Progress Note Filed: 10/26/2023 10:21 Note Text: CARE MANAGEMENT DISCHARGE NOTE SERVICE DATE: October 26, 2023 SERVICE TIME: 10:19 AM Admission Date: 10/23/2023 LOS: 2 days Discharge Arrangement Discharge Arrangement: Home with Self Care Services Arranged Provider Name: [facility] Caregiver Assessment Transportation Arrangements Transportation Arrangements: Car Date of Trip: 10/26/23 Destination: Home Handoff Communication: Additional Information: Per plan of care rounds with provider patient is medically cleared for DC this date. Met at bedside with patient to discuss DC, confirmed plan is to return back home independently. Patient being prescribed eliquis 5 MG BID for home going. Coupon card and education pamphlet provided. Family to transport home. SIGNATURE: Maggi Yost RN PATIENT NAME: Monie Serrano DATE: October 26, 2023 TIME: 10:19 AM CONTACT #: [phone] [facility] 10-26-2023 Note HNO ID: [id number] Author: AIMNA HYLTON MD Service: Clinical Cardiology Author Type: Physician Type: Progress Notes Filed: 10/26/2023 09:38 Note Text: PROGRESS NOTE CARDIOLOGY SERVICE SERVICE DATE: 10/26/2023 SERVICE TIME: 8:47 AM Subjective INTERIM HISTORY: Patient states she feels. Denies any lightheadedness, palpitations. She states that she walked around the floor yesterday and felt fine. She denies PND, orthopnea or edema. CARDIAC STATUS: Chest Pain: Improved Dyspnea: Improved Functional Capacity: Improved Objective PHYSICAL EXAM: Body mass index is 31.92 kg/m?. O2 Therapy: Room Air No data recorded Patient Vitals for the past 24 hrs: BP Temp Temp src Pulse Resp SpO2 Weight 10/26/23 0747 100/67 36.9 ?C (98.5 ?F) Oral 80 18 94 % -- 10/26/23 0347 95/63 36.8 ?C (98.3 ?F) Oral 83 19 92 % 89.7 kg (197 lb 12 oz) 10/25/23 2337 91/59 37 ?C (98.6 ?F) Oral 85 17 92 % -- 10/25/23 1936 91/57 37.2 ?C (98.9 ?F) Oral 78 18 97 % -- 10/25/23 1745 99/65 -- -- -- -- -- -- 10/25/23 1513 94/64 37 ?C (98.6 ?F) Oral 75 18 96 % -- 10/25/23 1132 101/63 37.1 ?C (98.8 ?F) Oral 64 16 95 % -- 10/25/23 0900 100/63 -- -- 85 -- -- -- Pleasant, comfortable, not in acute distress. Awake, alert, oriented times 3. Moves all extremities. SKIN: No rash or lumps. HEENT: Normocephalic, face symmetrical. NECK: Supple, no JVD, no carotid bruit, no thyromegaly. LUNGS: Clear to auscultation bilaterally. CARDIAC: PMI present, irregularly irregular, normal S1 and S2, no S3 or S4, no additional heart sounds or murmurs. ABDOMEN: Soft, nontender, bowel sounds present. EXTREMITIES: No edema. PULSES: Peripheral pulses present. MEDICATIONS: Current Facility-Administered Medications Medication Dose Route Frequency NaCl 0.9% iv flush bag 20 mL INTRAVENOUS PRN aluminum-magnesium hydroxide-simethicone 200-200-20 mg/5 mL 30 mL 30 mL ORAL DAILY PRN acetaminophen 650 mg tab(s) (TYLENOL) 650 mg ORAL q 6 H PRN ondansetron 4 mg tab(s) (ZOFRAN) 4 mg ORAL q 6 H PRN Or ondansetron (PF) 4 mg injection (ZOFRAN) 4 mg INTRAVENOUS q 6 H PRN polyethylene glycol 3350 17 g packet 17 g ORAL DAILY melatonin 1 mg tab(s) 1 mg ORAL DAILY (8 PM) sodium chloride 0.9 % (flush) 2-10 mL (BD POSIFLUSH) 2-10 mL INTRAVENOUS DIRECTED PRN And perflutren lipid microspheres 1.1 mg/mL 1.3 mL injection (DEFINITY) 1.3 mL INTRAVENOUS DIRECTED PRN iv contrast (radiology procedure) INTRAVENOUS DIRECTED PRN metoprolol succinate ER 100 mg tab(s) (TOPROL XL) 100 mg ORAL DAILY spironolactone 25 mg tab(s) (ALDACTONE) 25 mg ORAL DAILY furosemide 10 mg injection (LASIX) 10 mg INTRAVENOUS BID 9a/5p pantoprazole DR 40 mg tab(s) (PROTONIX) 40 mg ORAL DAILY (6 AM) dilTIAZem CD 120 mg cap(s) (CARDIZEM CD, CARTIA XT) 120 mg ORAL DAILY apixaban 5 mg tab(s) (ELIQUIS) 5 mg ORAL BID DATA: Diagnostic tests reviewed for today's visit: Most recent labs and imaging results. Past 72 Hour Labs: Recent Labs 10/26/23 0448 10/24/23 0440 10/23/23 1645 10/23/23 1509 WBC 5.42 < > -- 7.43 RBC 4.08 < > -- 4.03 HB 13.1 < > -- 13.1 HCT 40.3 < > -- 39.5 MCV 98.8 < > -- 98.0 MCH 32.1 < > -- 32.5 MCHC 32.5 < > -- 33.2 RDWCV 12.4 < > -- 12.8 PLT 305 < > -- 318 MPV 9.3 < > -- 9.3 NEUTP -- -- -- 49.6 LYMPHP -- -- -- 37.6 MONOP -- -- -- 8.9 EODINP -- -- -- 2.7 BASOP -- -- -- 0.9 ABSNEUT -- -- -- 3.69 ABSMONO -- -- -- 0.66 ABSEOSIN -- -- -- 0.20 ABSBASO -- -- -- 0.07 GLUC 134* < > -- 118* BUN 22* < > -- 19 CREAT 0.88 < > -- 0.89 NA 140 < > -- 140 K 4.4 < > -- 3.9 CHLOR 104 < > -- 104 CO2 24 < > -- 27 TPROT 7.3 < > -- 7.5 ALB 4.3 < > -- 4.4 CA 9.4 < > -- 9.7 ALKPHOS 110 < > -- 112 TBILI 0.7 < > -- 0.5 AST 16 < > -- 21 ALT 16 < > -- 21 PTSEC -- -- 12.7* -- APTT -- -- 30.9 -- INR -- -- 1.1 -- MG -- -- -- 2.0 < > = values in this interval not displayed. Last Lab Drawn: TSH 1.250 10/23/2023 Assessment/Plan Principal Problem: New onset atrial fibrillation (HCC) (POA: Yes) -persistent, onset uncertain -Heart rate in the 90s at rest on metoprolol 100 mg and diltiazem 120 mg daily. States dyspnea has improved. No other symptoms like lightheadedness, chest pain, presyncope, syncope. -continue uninterrupted apixaban 5 mg BID -schedule with cardiology in 1-2 weeks and cardioversion in 3-4 weeks. If recurred, ablation versus antiarrhythmic therapy Heart failure preserved ejection fraction -She is euvolemic on exam. Stress test done here was negative for ischemia or infarct. Patient is on lasix and will send home on oral lasix 20 mg. Will start SGLT2-inhibitor Medication and Non-Pharmacologic VTE Prophylaxis/Anticoagulants Anticoagulant AND Antiplatelet Medications (From admission, onward) Start Dose Route Frequency Last Action Ordered Stop 10/25/23 2100 apixaban 5 mg tab(s) (ELIQUIS) (apixaban tab(s) (ELIQUIS)) 5 mg ORAL 2 TIMES DAILY Given, 10/24 201010/25/23 092 (more content not included)... [facility] 10-25-2023 Note HNO ID: [id number] Author: SALVADOR PORTILLO APRN.MARGARET Service: Hospital Medicine Author Type: Nurse Practitioner Type: Progress Notes Filed: 10/25/2023 13:52 Note Text: INPATIENT PROGRESS NOTE SERVICE DATE: 10/25/2023 SERVICE TIME: 954 PRIMARY SERVICE: Josiah Donovan Subjective CHIEF COMPLAINT: Arrhythmia INTERVAL HPI: Seen today. States she feels good. She is still in atrial fibrillation. Otherwise, no new complaints or overnight events. Will need to follow-up with cardiology for cardioversion in the near future. She reports she will need to contact her insurance to find out what hospital will be covered. Denies cp/sob/n/v/d/abd pain/fever/chills. Anticipate discharge tomorrow. Current Facility-Administered Medications Medication Dose Route Frequency NaCl 0.9% iv flush bag 20 mL INTRAVENOUS PRN aluminum-magnesium hydroxide-simethicone 200-200-20 mg/5 mL 30 mL 30 mL ORAL DAILY PRN acetaminophen 650 mg tab(s) (TYLENOL) 650 mg ORAL q 6 H PRN ondansetron 4 mg tab(s) (ZOFRAN) 4 mg ORAL q 6 H PRN Or ondansetron (PF) 4 mg injection (ZOFRAN) 4 mg INTRAVENOUS q 6 H PRN polyethylene glycol 3350 17 g packet 17 g ORAL DAILY melatonin 1 mg tab(s) 1 mg ORAL DAILY (8 PM) sodium chloride 0.9 % (flush) 2-10 mL (BD POSIFLUSH) 2-10 mL INTRAVENOUS DIRECTED PRN And perflutren lipid microspheres 1.1 mg/mL 1.3 mL injection (DEFINITY) 1.3 mL INTRAVENOUS DIRECTED PRN iv contrast (radiology procedure) INTRAVENOUS DIRECTED PRN metoprolol succinate ER 100 mg tab(s) (TOPROL XL) 100 mg ORAL DAILY spironolactone 25 mg tab(s) (ALDACTONE) 25 mg ORAL DAILY furosemide 10 mg injection (LASIX) 10 mg INTRAVENOUS BID 9a/5p [START ON 10/26/2023] pantoprazole DR 40 mg tab(s) (PROTONIX) 40 mg ORAL DAILY (6 AM) dilTIAZem CD 120 mg cap(s) (CARDIZEM CD, CARTIA XT) 120 mg ORAL DAILY apixaban 5 mg tab(s) (ELIQUIS) 5 mg ORAL BID Objective PHYSICAL EXAM: BP 101/63 Pulse 64 Temp (Src) 98.8 (Oral) Resp 16 Ht 5' 6 (1.68m) Wt 198 lb 13.7 oz (90.2kg) SpO2 95% BMI 32.11 kg/(m2). O2 Therapy: Room Air Physical Exam Performed GENERAL: Alert, no distress, cooperative, obese EYES: PERRLA, EOMI LUNGS: Crackles to bilateral mid and lower bases - resolving CARDIAC: Normal S1 and S2 ABDOMEN: Abdomen soft, non-tender, BS normal EXTREMITIES: No ulcers, bilateral lower extremities are larger however there is no pitting edema - no change. Pedal pulses present bilaterally. NEURO: Grossly normal cognition, motor function, and cranial nerves III-XII, Cranial nerves II-XII intact PULSES: 2+ radial, 2+ dorsalis pedis DATA: Diagnostic tests reviewed for today's visit: Most recent labs and imaging results. Assessment/Plan Principal Problem: New onset atrial fibrillation (HCC) No chest pain Still in A-fib Echo done Stress test done Cardizem drip discontinued and changed to po Metoprolol 100 daily hospital monitor Cardiology following Shortness of breath No current oxygen needs Last documented pulse ox is upper 90s on room air Lasix 10 daily as her bp has been soft Aldactone 25 daily Monitor pulse ox Elevated brain natriuretic peptide (BNP) level Echo done Stress test done hospital monitor Cardiology following Daily weight I's and O's Lasix daily 10 mg daily as her bp has been soft Aldactone 25 mg daily Positive D dimer D-dimer 447 No evidence of PE per CT yesterday Hyperglycemia Glucose 99 No history of diabetes A1c 5.9 Daily CMP Resolved Problems: * No resolved hospital problems. * Obesity Class I (BMI 30-34.9) Medication and Non-Pharmacologic VTE Prophylaxis/Anticoagulants Anticoagulant AND Antiplatelet Medications (From admission, onward) Start Dose Route Frequency Last Action Ordered Stop 10/25/23 2100 apixaban 5 mg tab(s) (ELIQUIS) (apixaban tab(s) (ELIQUIS)) 5 mg ORAL 2 TIMES DAILY Ordered 10/25/23 0920 -- 10/23/23 1745 activity - mobilize patient (fl,oh) VTE Prophylaxis: VTE prophylaxis appropriate SIGNATURE: Salvador Portillo APRN.CNP, APRN.CNP PATIENT NAME: Monie Serrano DATE: October 25, 2023 TIME: 4:27 PM [facility] 10-25-2023 Note HNO ID: [id number] Author: AMINA HYLTON MD Service: Clinical Cardiology Author Type: Physician Type: Progress Notes Filed: 10/25/2023 09:23 Note Text: PROGRESS NOTE CARDIOLOGY SERVICE SERVICE DATE: 10/25/2023 SERVICE TIME: 9:04 AM Subjective INTERIM HISTORY: Patient denies any chest pain. States dyspnea has improved since being here. No palpitations, lightheadedness, presyncope. Diltiazem drip further reduced to 2.5 mg overnight. Had stress test yesterday. Objective PHYSICAL EXAM: Body mass index is 32.1 kg/m?. O2 Therapy: Room Air No data recorded Patient Vitals for the past 24 hrs: BP Temp Temp src Pulse Resp SpO2 Weight 10/25/23 0747 99/61 36.7 ?C (98 ?F) Oral 82 18 95 % -- 10/25/23 0344 105/69 36.4 ?C (97.6 ?F) Oral 81 16 92 % 90.2 kg (198 lb 13.7 oz) 10/25/23 0003 84/61 36.6 ?C (97.9 ?F) Oral 84 16 93 % -- 10/24/23 1942 95/63 36.9 ?C (98.4 ?F) Oral 85 16 94 % -- 10/24/23 1656 99/65 -- -- -- -- -- -- 10/24/23 1550 101/69 37.1 ?C (98.8 ?F) Oral 80 16 92 % -- 10/24/23 1300 108/75 36.6 ?C (97.8 ?F) Oral 89 16 99 % -- Pleasant, comfortable, not in acute distress. Awake, alert, oriented times 3. Moves all extremities. SKIN: No rash or lumps. HEENT: Normocephalic, face symmetrical. NECK: Supple, no JVD, no carotid bruit, no thyromegaly. LUNGS: Clear to auscultation bilaterally. CARDIAC: irregularly irregular, S1 and S2, no S3 or S4, no additional heart sounds or murmurs. CARDIAC: Normal S1 and S2; no rubs, murmurs, or gallops, Rhythm: irregularly irregular ABDOMEN: Soft, nontender, bowel sounds present. EXTREMITIES: No edema. PULSES: Peripheral pulses present. MEDICATIONS: Current Facility-Administered Medications Medication Dose Route Frequency NaCl 0.9% iv flush bag 20 mL INTRAVENOUS PRN aluminum-magnesium hydroxide-simethicone 200-200-20 mg/5 mL 30 mL 30 mL ORAL DAILY PRN acetaminophen 650 mg tab(s) (TYLENOL) 650 mg ORAL q 6 H PRN ondansetron 4 mg tab(s) (ZOFRAN) 4 mg ORAL q 6 H PRN Or ondansetron (PF) 4 mg injection (ZOFRAN) 4 mg INTRAVENOUS q 6 H PRN polyethylene glycol 3350 17 g packet 17 g ORAL DAILY melatonin 1 mg tab(s) 1 mg ORAL DAILY (8 PM) heparin 5,000 Units injection 5,000 Units SUBCUTANEOUS q 12 H sodium chloride 0.9 % (flush) 2-10 mL (BD POSIFLUSH) 2-10 mL INTRAVENOUS DIRECTED PRN And perflutren lipid microspheres 1.1 mg/mL 1.3 mL injection (DEFINITY) 1.3 mL INTRAVENOUS DIRECTED PRN iv contrast (radiology procedure) INTRAVENOUS DIRECTED PRN metoprolol succinate ER 100 mg tab(s) (TOPROL XL) 100 mg ORAL DAILY spironolactone 25 mg tab(s) (ALDACTONE) 25 mg ORAL DAILY furosemide 10 mg injection (LASIX) 10 mg INTRAVENOUS BID 9a/5p [START ON 10/26/2023] pantoprazole DR 40 mg tab(s) (PROTONIX) 40 mg ORAL DAILY (6 AM) dilTIAZem CD 120 mg cap(s) (CARDIZEM CD, CARTIA XT) 120 mg ORAL DAILY DATA: Diagnostic tests reviewed for today's visit: Most recent labs and imaging results. Past 72 Hour Labs: Recent Labs 10/25/23 0454 10/24/23 0440 10/23/23 1645 10/23/23 1509 WBC 5.29 < > -- 7.43 RBC 3.74* < > -- 4.03 HB 12.3 < > -- 13.1 HCT 36.2 < > -- 39.5 MCV 96.8 < > -- 98.0 MCH 32.9 < > -- 32.5 MCHC 34.0 < > -- 33.2 RDWCV 12.7 < > -- 12.8 PLT 279 < > -- 318 MPV 9.4 < > -- 9.3 NEUTP -- -- -- 49.6 LYMPHP -- -- -- 37.6 MONOP -- -- -- 8.9 EODINP -- -- -- 2.7 BASOP -- -- -- 0.9 ABSNEUT -- -- -- 3.69 ABSMONO -- -- -- 0.66 ABSEOSIN -- -- -- 0.20 ABSBASO -- -- -- 0.07 GLUC 99 < > -- 118* BUN 17 < > -- 19 CREAT 0.90 < > -- 0.89 NA 140 < > -- 140 K 4.0 < > -- 3.9 CHLOR 103 < > -- 104 CO2 26 < > -- 27 TPROT 6.9 < > -- 7.5 ALB 4.0 < > -- 4.4 CA 9.2 < > -- 9.7 ALKPHOS 104 < > -- 112 TBILI 0.8 < > -- 0.5 AST 16 < > -- 21 ALT 17 < > -- 21 PTSEC -- -- 12.7* -- APTT -- -- 30.9 -- INR -- -- 1.1 -- MG -- -- -- 2.0 < > = values in this interval not displayed. Last Lab Drawn: TSH 1.250 10/23/2023 Assessment/Plan Principal Problem: New onset atrial fibrillation (HCC) (POA: Yes) Assessment AND Plan: HR currently in low 100's on metoprolol 100 and diltiazem 2.5 mg/hr infusion. Will convert diltiazem IV to 120 mg ER, continue metoprolol -schedule for direct current cardioversion in 3-4 weeks. Switch to oral anticoagulation apixaban 5 mg BID from heparin subq. Active Problems: Shortness of breath (POA: Yes)HFpEF Assessment AND Plan: Patient is euvolemic to mildly hypervolemic on exam. Stress test done yesterday was negative for inducible ischemia or infarct. Continue lasix 10 mg BID. Renal function remains normal. Continue aldactone Elevated brain natriuretic peptide (BNP) level (POA: Yes) Assessment AND Plan: Echo done showed Ef of 50% likely tachy induced. Continue lasix Medication and Non-Pharmacologic VTE Prophylaxis/Anticoagulants Anticoagulant AND Antiplatelet Medications (From admission, onward) Start Dose Route Frequency Last Action Ordered Stop 10/24/23 (more content not included)... [facility] 10-25-2023 Note HNO ID: [id number] Author: LEANNA RUSH RPh Service: Pharmacy Author Type: Pharmacist Type: Consult Progress Note Filed: 10/25/2023 08:16 Note Text: IV to PO Discontinue pantoprazole 40mg IV, change to pantoprazole 40mg PO per IV to PO guidelines. [facility] 10-25-2023 Note HNO ID: [id number] Author: MAGGI YOST RN Service: Care Management Author Type: ? Type: Care Mgt Progress Note Filed: 10/25/2023 07:36 Note Text: CARE MANAGEMENT PROGRESS NOTE SERVICE DATE: 10/25/2023 SERVICE TIME: 7:35 AM LOS: 1 day Ordered inpatient status as of 10/23, watch for initial IMM. SIGNATURE: Maggi Yost RN PATIENT NAME: Monie Serrano DATE: October 25, 2023 TIME: 7:35 AM PAGER/CONTACT #: [phone] [facility] 10-24-2023 Note HNO ID: [id number] Author: SALVADOR PORTILLO APRN.CNP Service: Hospital Medicine Author Type: Nurse Practitioner Type: Progress Notes Filed: 10/24/2023 16:39 Note Text: INPATIENT PROGRESS NOTE SERVICE DATE: 10/24/2023 SERVICE TIME: 1035 PRIMARY SERVICE: Josiah Donovan Subjective CHIEF COMPLAINT: Arrhythmia INTERVAL HPI: Seen today. States she feels good. She is still in atrial fibrillation. Otherwise, no new complaints or overnight events. Has had the echo and she is waiting to be taken down to have the stress test completed. Denies chest pain shortness of breath nausea vomiting diarrhea. Anticipate discharge sometime tomorrow. Current Facility-Administered Medications Medication Dose Route Frequency NaCl 0.9% iv flush bag 20 mL INTRAVENOUS PRN aluminum-magnesium hydroxide-simethicone 200-200-20 mg/5 mL 30 mL 30 mL ORAL DAILY PRN acetaminophen 650 mg tab(s) (TYLENOL) 650 mg ORAL q 6 H PRN NaCl 0.9% iv infusion 75 mL/hr INTRAVENOUS CONTINUOUS ondansetron 4 mg tab(s) (ZOFRAN) 4 mg ORAL q 6 H PRN Or ondansetron (PF) 4 mg injection (ZOFRAN) 4 mg INTRAVENOUS q 6 H PRN polyethylene glycol 3350 17 g packet 17 g ORAL DAILY melatonin 1 mg tab(s) 1 mg ORAL DAILY (8 PM) heparin 5,000 Units injection 5,000 Units SUBCUTANEOUS q 12 H sodium chloride 0.9 % (flush) 2-10 mL (BD POSIFLUSH) 2-10 mL INTRAVENOUS DIRECTED PRN And perflutren lipid microspheres 1.1 mg/mL 1.3 mL injection (DEFINITY) 1.3 mL INTRAVENOUS DIRECTED PRN dilTIAZem 100 mg in D5W 100 mL Vial-Bag (CARDIZEM) 5 mg/hr INTRAVENOUS CONTINUOUS iv contrast (radiology procedure) INTRAVENOUS DIRECTED PRN pantoprazole 40 mg injection (PROTONIX) 40 mg INTRAVENOUS DAILY (6 AM) furosemide 20 mg injection (LASIX) 20 mg INTRAVENOUS BID 9a/5p metoprolol succinate ER 100 mg tab(s) (TOPROL XL) 100 mg ORAL DAILY spironolactone 25 mg tab(s) (ALDACTONE) 25 mg ORAL DAILY Objective PHYSICAL EXAM: BP 101/69 Pulse 80 Temp (Src) 98.8 (Oral) Resp 16 Ht 5' 6 (1.68m) Wt 199 lb 1.2 oz (90.3kg) SpO2 92% BMI 32.15 kg/(m2). O2 Therapy: Room Air Physical Exam Performed GENERAL: Alert, no distress, cooperative, Obese EYES: PERRLA, EOMI LUNGS: Crackles to bilateral mid and lower bases CARDIAC: Normal S1 and S2 ABDOMEN: Abdomen soft, non-tender, BS normal EXTREMITIES: No ulcers, bilateral lower extremities are larger however there is no pitting edema - no change. Pedal pulses present bilaterally. NEURO: Grossly normal cognition, motor function, and cranial nerves III-XII, Cranial nerves II-XII intact PULSES: 2+ radial, 2+ dorsalis pedis DATA: Diagnostic tests reviewed for today's visit: Most recent labs and imaging results. Assessment/Plan Principal Problem: New onset atrial fibrillation (HCC) No chest pain Still in A-fib Echo done this am Stress test done this am Cardizem drip continues Metoprolol 100 daily hospital monitor Cardiology following Shortness of breath No current oxygen needs Last documented pulse ox is 97% on room air Lasix 20 Aldactone 25 daily Monitor pulse ox Elevated brain natriuretic peptide (BNP) level Echo done this a.m. Stress test done this a.m. hospital monitor Cardiology following Daily weight I's and O's Lasix daily 20 mg daily Aldactone 25 mg daily Positive D dimer D-dimer 447 No evidence of PE per CT yesterday Hyperglycemia Glucose 102 No history of diabetes A1c 5.9 Daily CMP Resolved Problems: * No resolved hospital problems. * Obesity Class I (BMI 30-34.9) Medication and Non-Pharmacologic VTE Prophylaxis/Anticoagulants Anticoagulant AND Antiplatelet Medications (From admission, onward) Start Dose Route Frequency Last Action Ordered Stop 10/24/23 0900 heparin 5,000 Units injection 5,000 Units SUBCUTANEOUS EVERY 12 HOURS Given, 10/23 0810/23/23 1719 -- 10/23/23 1745 activity - mobilize patient (pr,il) VTE Prophylaxis: VTE prophylaxis appropriate SIGNATURE: Salvador Portillo APRN.DARSHANA ROBLES.MARGARET PATIENT NAME: Monie Serrano DATE: October 24, 2023 TIME: 4:27 PM [facility] 10-24-2023 Note HNO ID: [id number] Author: BRAULIO GARZON RN Service: Care Management Author Type: Registered Nurse Type: Care Mgt Initial Assessment Filed: 10/24/2023 09:11 Note Text: CARE MANAGEMENT: ASSESSMENT AND DISCHARGE PLAN SERVICE DATE: October 24, 2023 SERVICE TIME: 9:10 AM PCP: Josiah Donovan MD, MD Primary Contact: Extended Emergency Contact Information Primary Emergency Contact: Bakari Serrano Address: [address] [place] [address] Mobile Relation: Spouse Admission Status: Observation Insurance Provider: MEDICARE ADVANTAGE GENERIC Discharge Planning requested by: Per Department Practice Potential Transition Plans Home Advance Directives Current Advance Directive: None Current Living Arrangements and Support Lives with: Spouse/significant other Type of Residence: Private Residence (House) Does the patient have to climb stairs at home?: Yes (ranch home with 2 steps to enter) Support: Spouse/significant other, Children How do you manage to accomplish the following: Independent: Ambulation;Bathe/Shower;Dress;Virgie ls/Meal Prep;Going to the bathroom;Medication Management;Transportation to appointments/community Current Services/Equipment Current Post-Acute Service(s): None Discharge Planning Patient Goal(s): Be able to go home, The patient/family declined Post-Acute discharge planning. [place] of Choice Explained: Are you interested in bedside delivery of your medications? Yes Discharge Planning Participant(s): Patient;Spouse/significant other;Children Patient/Family Comments: Caregiver Assessment: Caregiver is ready, willing and able to meet the patient's needs as recommended by the inter-professional team: No Caregiver needed Transport at Discharge: Transportation Arrangements: Car Needs Prior to Discharge: Needs Prior to Discharge: Pharmacy Bedside Delivery Post-Acute Discharge Plan: Met with patient and family at bedside. Patient is alert and oriented pleasant female admitted to observation status for new onset afib. Discharge plan is home as before Declines post acute care needs. SIGNATURE: Braulio Garzon RN PATIENT NAME: Monie Serrano DATE: October 24, 2023 TIME: 9:10 AM CONTACT #: [phone] [facility] 10-23-2023 Note HNO ID: [id number] Author: LENO STREETER CT Service: ? Author Type: Clinical Cop Breaker Type: Progress Notes Filed: 10/23/2023 21:09 Note Text: Radiology Service Progress Note DATE OF SERVICE: October 23, 2023 TIME: 9:09 PM PATIENT IDENTITY VERIFICATION COMPLETED USING TWO (2) STANDARD IDENTIFIERS: Name and Date of confirmed by patient verbally and Name and Date of confirmed by identification band. FALL SCREENING: Has the patient had 2 falls in the last year or 1 fall with injury or currently using an Ambulatory Assistive Device (Walker, Cane, Wheelchair, Crutches, etc.)? Emergency Room Patient: Screened in ED PATIENT GENDER DATA: Female. status: : No status: NO. PATIENT RELEVANT IMPLANT DATA REVIEWED: Not Applicable PATIENT PRESENTS WITH AN IMPLANTABLE OR ATTACHED CONCRETE PIPE MAKER: No ALLERGIES: Reviewed and unchanged CONTRAST ALLERGY: NO. EXAM: CT -CONTRAST INDUCED NEPHROPATHY RISK FACTORS: Patient age > 60 years CREATININE: Creatinine Date Value Ref Range Status 10/23/2023 0.89 0.58 - 0.96 mg/dL Final 12/15/2018 0.68 0.50 - 0.90 mg/dL Final Estimated Glomerular Filtration Rate Date Value Ref Range Status 10/23/2023 72 >=60 mL/min/1.73m? Final Comment: Estimated Glomerular Filtration Rate (eGFR) is calculated using the 2020 CKD-EPI creatinine equation. This equation utilizes serum creatinine, sex, and age as parameters. The creatinine assay has traceable calibration to isotope dilution-mass spectrometry. Refer to KDIGO guidelines for clinical interpretation. In patients with unstable renal function, e.g. those with acute kidney injury, the eGFR may not accurately reflect actual GFR. eGFR- Date Value Ref Range Status 12/15/2018 > 60 ml/min/1.73m2 Final Comment: eGFR >= 60 Indicates normal kidney function. * eGFR IS AN ESTIMATE * (AFR JAYDEN = ) (non-AFR AM = NON-) MDRD calculation used in the eGFR should not be used to dose medications. For further limitations of the eGFR please refer to the Physician Website or the National Kidney Disease Education Program website (www.nkdep.nih.gov). P.O.C.T. RESULTS: POC done: Yes, See Lab Tab October 23, 2023 TREATMENT: N/A and No Hydration needed. PERIPHERAL IV DATA: Ambulatory: A peripheral IV was started in the Left antecubital site with a Angio cath: 20 gauge. RADIOLOGY DEPARTMENT: CT; Exam(s) Completed: PE Study SIGNATURE: Leno Streeter, CT, CT PATIENT NAME: Monie Serrano DATE: October 23, 2023 TIME: 9:09 PM [facility] 10-23-2023 Note HNO ID: [id number] Author: DARRIN FRANCISCO RT(R) Service: Radiology Author Type: Cop Breaker Type: Progress Notes Filed: 10/23/2023 15:48 Note Text: Radiology Service Progress Note PATIENT NAME: Monie Serrano DATE OF SERVICE: October 23, 2023 TIME: 3:48 PM PATIENT IDENTITY VERIFICATION COMPLETED USING TWO (2) IDENTIFIERS: Name and Date of confirmed by patient verbally. FALL SCREENING: Has the patient had 2 falls in the last year or 1 fall with injury or currently using an Ambulatory Assistive Device (Walker, Cane, Wheelchair, Crutches, etc.)? Emergency Room Patient: Screened in ED PATIENT GENDER DATA: Female. status: : No status: NO. PATIENT RELEVANT IMPLANT DATA REVIEWED: Not Applicable PATIENT PRESENTS WITH AN IMPLANTABLE OR ATTACHED CONCRETE PIPE MAKER: No RADIOLOGY DEPARTMENT: General X-ray: Exam(s) Completed: Chest X-Ray PERIPHERAL IV DATA: Not applicable SIGNED BY: RT Anne(R) October 23, 2023 3:48 PM [facility] 10-23-2023 Note SARS-COV-2 (AGENT OF COVID-19) RNA: Not detected INFLUENZA A RNA: Not detected INFLUENZA B RNA: Not detected RESPIRATORY SYNCYTIAL VIRUS (RSV) RNA: Not detected [facility] Comment on above: Performed By: #### [id number] ####[facility] LABCLIA [id number] [address] OF [facility] 04-28-2020 Note HNO ID: [id number] Author: Jennifer Soares Service: ? Author Type: Physician Type: Progress Notes Filed: 05/07/2020 9:12 PM Note Text: [facility] Note- Established patient Provider: Aaron Mcgrath DO (NM Fellow)/ Dr. Phyllis MD (DC Staff) Date of last clinic visit: 03/01/2020 Virtual Visit CC: cramping Subjective: Since last visit she has had no progression in her cramping frequency, duration, intensity or location. No new weakness or numbness. She continues [place] with no injurious falls. Her pain continues to be very bothersome and frequent. Cramping is 5-6 times per week with bad days and good days. A bad day is 3-4 times and soaks her hands in hot water which helps 50% times. On a good day she has maybe 1 cramp in the hands. She has bee hives. Taking gabapentin makes her tired. She does not feel this medication impacted her symptoms. Warm water helps her fingers relax when they tighten. She has taken magnesium for 8 weeks. She does not recall dosage. Baclofen has helped the most. She takes 10mg in the am and pm and rarely in the afternoon. Duration of cramps was lessened and she was able to gain more continuous sleep. She continues b12 injections monthly To review, her father had multiple sclerosis. In his 20s and 30s he used a cane and his 40s. He had right cheek burning. He past away from colon cancer at 56. He was using a walker at that time. Prior History: Mrs. 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 She had pain a few hours after exerting her self that day. She tore both achilles tendosn. Right was repaired as this was a complete tear. Partial tear on the left. The right foot would swell. This responded some to deep tissue message. Her surgeon told her to give it a year. She was told the cramps were not due to surgery so she began to seek evaluation. Currently... She believes that there may be some associated muscle twitching occurring in the right hand only. She also suspects some associated weakness in the affected muscles, although with cramping, it is difficult to definitely separate dysfunction (including gait difficulty) from cramp and pain associated effects in the limb. She mentioned that at times she had impaired dexterity and may spill coffee, for example. She did not believe that there is muscle atrophy/bulk loss... 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 Again, no clear triggering with ambient cold. Initially, she sought medical attention through her PCP who had prescribed baclofen (initially taken 5 mg a.m., 10 mg p.m.) she was then referred to local area neurologist Dr. Hernandez ([place], [place]) and multiple blood lab testing results were reportedly unrevealing. She also describes having NCS and EMG locally which was showed nothing substantial. Because her father carried a diagnosis of MS, there was some speculation about a potential [employer] cause, and MRI brain and cervical spine, and possibly thoracic spine was done, only revealing some narrowing at C3-C4(?), but apparently no high-grade stenoses, and no culprit parenchymal lesions. Lumbar spine MRI was denied by insurance. Baclofen was increased to 10 mg 3 times daily (although the patient typically takes twice daily), and gabapentin was added (300 mg p.o. nightly, +/-100 mg every morning), which has produced some alleviation in symptoms. Of note, the patient has not previously tried magnesium supplements. Meds and allergies as listed (below and above, respectively) Current Outpatient Medications Medication Sig - baclofen (LIORESAL) 10 mg tablet Take 10 mg by mouth twice daily. - cyanocobalamin 1,000 mcg/mL once every month. - gabapentin (NEURONTIN) 100 mg capsule as directed. 1-2 capsules throughout the day and 3 tablets at bedtime - CALCIUM ORAL Take by mouth twice daily. - cholecalciferol, vitamin D3, (VITAMIN D3 ORAL) Take by mouth twice daily. No current facility-administered medications for this visit. No new details in the family history or social history were offered by the patient. Review of symptoms including constitutional, eyes, ENT, neck, respiratory, cardiovascular, GI, , musculoskeletal, hematologic, oncologic, endocrine, and psy (more content not included)... [facility] 04-28-2020 Note Procedure (EMGMN) MONIE SERRANO ([id number]) 1955 F Date Time Provider Department 04/28/20 1:15 PM EMG 4 NEUR MAIN (MAX WEIGHT: 1000)EMGMN During your visit today, we recorded the following information about you: Referring Provider: JENNIFER SOARES [[id number]] Allergies As of Date: 04/28/2020 (No Known Allergies) Date Reviewed: 04/28/2020 Reviewed by: Luis Nina - Fully Assessed Reason for Visit: EMG [2011] Primary Visit Diagnosis:Weakness generalized [R53.1] Other Visit Diagnoses:Muscle cramps [R25.2] Muscle twitching [R25.3] Myalgia [M79.10] Generalized weakness [R53.1] Concern about neurological disease without diagnosis [Z71.1] Order(s):EMG(NEURO/NI) [20100525] Order #: [id number]. #:[id number]: 1 Prescriptions as of 04/28/2020 Sig: BACLOFEN 10 MG TABLET Take 10 mg by mouth twice vicki* CYANOCOBALAMIN (VIT B-12) 1,0* once every month. GABAPENTIN 100 MG CAPSULE as directed. 1-2 capsules thr* CALCIUM ORAL Take by mouth twice daily. VITAMIN D3 ORAL Take by mouth twice daily. Problem List As Of Date 04/28/2020 Noted Resolved Muscle cramps [R25.2] 03/01/2020 Muscle twitching [R25.3] 03/01/2020 Myalgia [M79.10] 03/01/2020 Generalized weakness [R53.1] 03/01/2020 Concern about neurological disease without diag*03/01/2020 Encounter Status:Closed by NESTOR OROPEZA MD on 04/28/20 [facility] Evaluation note No assessment inform ation available [facility] Work Phone: Evaluation note Diagnosis New onset atrial fibrillation (HCC)- Primary Atrial fibrillation New onset atrial fibrillation (HCC) Atrial fibrillation Tachycardia Tachycardia, unspecified Acute congestive heart failure, unspecified heart failure type (HCC) Shortness of breath Positive D dimer Abnormal coagulation profile Elevated brain natriuretic peptide (BNP) level Other nonspecific findings on examination of blood Hyperglycemia Other abnormal glucose A-fib (HCC) Atrial fibrillation Atrial fibrillation, unspecified type (HCC)- [facility] New onset atrial fibrillation (HCC)- Primary Atrial fibrillation New onset atrial fibrillation (HCC) Atrial fibrillation Tachycardia Tachycardia, unspecified Acute congestive heart failure, unspecified heart failure type (HCC) Shortness of breath Positive D dimer Abnormal coagulation profile Elevated brain natriuretic peptide (BNP) level Other nonspecific findings on examination of blood Hyperglycemia Other abnormal glucose A-fib (HCC) Atrial fibrillation Elevated glucose- Primary Other abnormal glucose Heart failure with preserved ejection fraction, unspecified HF chronicity (HCC) Atrial fibrillation, unspecified type (HCC) [facility] Outpatient Procedure (Routine) - Pending Review Specialty Diagnoses / Procedures Referred By Elizabeth schaeffer [facility] Diagnoses Elevated glucose Heart failure with preserved ejection fraction, unspecified HF chronicity (HCC) Atrial fibrillation, unspecified type (HCC) Procedures ECHO ECHO TTHRC R-T 2D W/WOM-MODE COMPL SPEC&COLR D Jennifer Kidd MD [address] [address] [place] [address] Referral ID Status Reason Start Date Expiration Date Visits Requested Visits Authorized [id number] Pending Review Auto-Generat ed Referral 03/02/2024 03/02/2025 1 1 [facility] Summary Purpose Family History No Family History Records FoundNo Family History Records FoundNo Family History Records FoundNo Family History Records FoundNo Family History Records FoundNo Family History Records Found Advance Directives No Advanced Directives Records Found Date Activated Date Inactivated Comments 10/23/2023 5:43 PM 10/26/2023 3:39 PM Question Answer Comments Full Code Order Discussed With: Patient Surrogate Decision Maker Name: fredi - Surrogate Decision Maker Date Activated Date Inactivated Comments 10/23/2023 5:43 PM 10/26/2023 3:39 PM Question Answer Comments Full Code Order Discussed With: Patient Surrogate Decision Maker Name: fredi gill Surrogate Decision Maker Chief Complaint and Reason for Visit Chief Complaint OSTEOPENIA, SCREENIN G Additional Source Comments INFORMATION SOURCE (unrecogn ized section and content) DATE CREATED AUTHOR 08/20/2017 [facility] DATE CREATED AUTHOR AUTHOR'S ORGANIZ ATION 11/03/2019 [facility] DATE CREATED AUTHOR AUTHOR'S ORGANIZ ATION 02/16/2021 [facility] DATE CREATED AUTHOR AUTHOR'S ORGANIZ ATION 04/05/2021 [facility] DATE CREATED AUTHOR AUTHOR'S ORGANIZ ATION 08/05/2024 [facility] DATE CREATED AUTHOR AUTHOR'S ORGANIZ ATION 08/13/2024 [facility] Source Comments (unrecognize d section and content) In the event this informatio n is protected by the Federal Confidentiality of Alcohol and Drug Abuse Patient Records regulations: The Federal rules restrict any use of the information to criminally investigate or prosecute any alcohol or drug abuse patient.[facility] HospitalIn the event this information is protected by the Federal Confidentiality of Alcohol and Drug Abuse Patient Records regulations: The Federal rules restrict any use of the information to criminally investigate or prosecute any alcohol or drug abuse patient.[facility] the event this information is protected by the Federal Confidentiality of Alcohol and Drug Abuse Patient Records regulations: The Federal rules restrict any use of the information to criminally investigate or prosecute any alcohol or drug abuse patient.[facility] the event this information is protected by the Federal Confidentiality of Alcohol and Drug Abuse Patient Records regulations: The Federal rules restrict any use of the information to criminally investigate or prosecute any alcohol or drug abuse patient.[facility] Hospital[facility] the event this information is protected by the Federal Confidentiality of Alcohol and Drug Abuse Patient Records regulations: The Federal rules restrict any use of the information to criminally investigate or prosecute any alcohol or drug abuse patient.[facility] Hospital[facility] the event this information is protected by the Federal Confidentiality of Alcohol and Drug Abuse Patient Records regulations: The Federal rules restrict any use of the information to criminally investigate or prosecute any alcohol or drug abuse patient.[facility] Goals (unrecognized section and content) Goals may be documented in a n alternate section Reason for Visit (unrecogniz ed section and content) Reason Comments DUC/Cardioversion Afib Specialty Diagnoses / Procedures Referred By Contac t Referred To Contact CARDIOLOGY Diagnoses AFIB DR [place] [id number] Procedures DUC Jennifer Kidd MD [address] [place] [address] [place] [address] Referral ID Status Reason Start Date Expiration Date V isits Requested Visits Authorized [id number] Outside PCP 11/14/2023 01/13/2024 1 1 Specialty Diagnoses / Procedures Referred By Elizabeth schaeffer Referred To Contact CARDIOLOGY Diagnoses A-fib (HCC) CARDIOVERSION AFIB DR PETERSEN (PER DR KIDD) MANGO ANESTHESIA Procedures CARDIOVERSION ELECTIVE ARRHYTHMIA EXTERNAL CARDIOVERSION Jennifer Kidd MD [id number] [facility] [place] [address] Referral ID Status Reason Start Date Expiration Date Visits Re quested Visits Authorized [id number] Closed 10/31/2023 02/24/2024 1 1 Care Teams (unrecognized sec tion and content) 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 Start Date End Date Josiah Donovan MD [address] [place] [address] PCP - General Family Medicine 04/28/20 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 This clinical summary was aggregated from multiple sources. Caution should be exercised in using it in the provision of clinical care. This summary normalizes information from multiple sources, and as a consequence, information in this document may materially change the coding, format and clinical context of patient data. In addition, data may be omitted in some cases. CLINICAL DECISIONS SHOULD BE BASED ON THE PRIMARY CLINICAL RECORDS. [facility] [employer] [facility]. provides no warranty or guarantee of the accuracy or completeness of information in this document.
== END | disposition home or self-care (01) ==
DX: M81.0 Age-related osteoporosis without current pathological fracture (principal)
CPT/HCPCS: 77080